=== PATIENT | female | born 1935 | race Two or more races ===

== ENCOUNTER 2016-09-22 10:30 | Outpatient (RCR) | payer MEDICARE, MEDICAID | END 2016-10-14 | disposition home or self-care (01) | LOC: PTY 10:30 | DX: M47.816 Spondylosis without myelopathy or radiculopathy, lumbar region (principal); B02.29 Other postherpetic nervous system involvement | CPT/HCPCS: 97110; 97140; G0283 ==

== ENCOUNTER 2017-02-12 10:00 | Outpatient (RCR) | payer MEDICARE, MEDICAID | END 2017-03-13 | disposition home or self-care (01) | LOC: PTY 10:00 | DX: B02.29 Other postherpetic nervous system involvement (principal); M47.816 Spondylosis without myelopathy or radiculopathy, lumbar region; M81.0 Age-related osteoporosis without current pathological fracture; I10 Essential (primary) hypertension; F32.9 Major depressive disorder, single episode, unspecified; F41.9 Anxiety disorder, unspecified | CPT/HCPCS: 97110; 97140; 97162; G0283; G8978; G8979 ==

== ENCOUNTER 2017-03-19 13:00 | Outpatient (RCR) | payer MEDICARE, MEDICAID | END 2017-04-13 | disposition home or self-care (01) | LOC: PTY 13:00 | DX: B02.29 Other postherpetic nervous system involvement (principal); M47.816 Spondylosis without myelopathy or radiculopathy, lumbar region; M54.5 Low back pain; M81.0 Age-related osteoporosis without current pathological fracture; I10 Essential (primary) hypertension; F32.9 Major depressive disorder, single episode, unspecified; F41.9 Anxiety disorder, unspecified | CPT/HCPCS: 97140; G0283 ==

== ENCOUNTER 2018-04-15 14:28 | Outpatient (CLI) | payer MEDICARE, MEDICAID ==
[~2018-04-15] VITALS: Ht 154.9 cm; Wt 64.9 kg
[2018-04-15 14:57] VITALS: BP 129/64
[2018-04-15] MEDS ORDERED: LIDOCAINE700 M1 TP (16:35)
[2018-04-15] MEDS ORDERED: LORAZEPAM1 MG ORAL (16:35)
[2018-04-15] MEDS ORDERED: BP MED (16:35)
[2018-04-15] MEDS ORDERED: VOLTAREN100 G1 TP (16:35)
[2018-04-15] MEDS ORDERED: COZAAR50 MG ORAL (16:35)
[2018-04-15] MEDS ORDERED: LD2JL30 TOPIC (16:35)
--- NOTE | 2018-04-16 08:43 | GI Initial Consult Note ---
History of Present Illness General Date patient seen: Apr 15, 2018 Time patient seen: 08:39 Referring physician: [facility] Reason for Consultation: ABDOMINAL PAIN Present Illness HPI 83 year old female patient with history of H. Pylori approximately 5 years ago presents today with complaint of abdominal pain, GERD, constipation, and N/V. In addition, she states she has general weakness and questions if she has anemia or not. She had a EGD/colonoscopy [place] [address] Javier Oneil. recently with lung CA. Denies any unintentional weight loss or changes in dietary habits. No signs of abuse or neglect. Patient is not fall risk. Home Meds Reported Medications Lidocaine HCL 2% Jelly* (Lidocaine Jelly 2%*) 5 Ml Jel.pf.romulo, 5 ML TOPIC DAILY , ML 04/15/18 Lidocaine (Lidocaine) 1 Each Adh..patch, 700 MG TP, PATCH 04/15/18 Diclofenac Sodium (VOLTAREN) 100 Gm Gel..gram., 100 GM TP, GM 04/15/18 Lorazepam* (LORAZEPAM*) 1 Mg Tablet, 1 MG ORAL BID, TAB 04/15/18 Losartan Potassium* (COZAAR*) 50 Mg Tablet, 100 MG ORAL TWICE A DAY, TAB 04/15/18 [Bp Med ] No Conflict Check 04/15/18 Med list reviewed/reconciled: Yes Allergies: Coded Allergies: NO KNOWN ALLERGIES (Unverified Allergy, Unknown, 09/11/15) Patient History History Provided By: Patient, Medical Record PMH Narrative ?Anemia HTN Depression Anxiety Shingles Past Surgical History: Appendectomy Family History Narrative Son has lung CA Social History: Denies: smoking, alcohol use, drug use, other Review of Systems All Other Systems: negative except mentioned in HPI Physical Exam Vital Signs Date Time Temp Pulse Resp B/P (MAP) Pulse Ox O2 Delivery O2 Flow Rate FiO2 04/15/18 14:57 98.6 68 16 129/64 94 98.6 Sp02 EP Interpretation: reviewed, normal Labs Laboratory Tests Test 04/15/18 15:45 Helicobacter pylori Breath Test Pending General Appearance: well appearing, no apparent distress, alert Head: normocephalic EENT: PERRL/EOMI, normal ENT inspection Neck: supple Respiratory: normal breath sounds, no respiratory distress Cardiovascular: normal rate Gastrointestinal: normal inspection, non tender, soft, normal bowel sounds, non -distended Rectal: deferred Genitourinary: no CVA tenderness Musculoskeletal: normal inspection, back normal Neurologic: normal inspection, alert, oriented x3, responsive Psychiatric: normal inspection, judgement/insight normal, memory normal Skin: normal inspection, normal color, no rash, warm/dry, palpation normal, well hydrated Lymphatic: normal inspection, no adenopathy GI: Plan Problems: (1) H pylori ulcer (2) GERD (gastroesophageal reflux disease) (3) Abdominal pain (4) HTN (hypertension) (5) Depression (6) Shingles (7) Anemia Plan Omeprazole 40mg daily BT r/o H Pylori Bentyl prn RTC x [address] Denson. Thank you for this patient referral. The patient was seen and examined at bedside and all new and available data was reviewed in the patients chart. I agree with the above findings, impression and plan. (Patient seen earlier today. Signature stamp does not reflect patient encounter time.). - MD Jeannette [facility] CLAIMS CONFIGURATION ANALYST Apr 16, 2018 08:43
== END 2018-04-15 15:10 | disposition home or self-care (01) ==
LOC: PAN 14:28
DX: R10.9 Unspecified abdominal pain (principal); K21.9 Gastro-esophageal reflux disease without esophagitis; B96.81 Helicobacter pylori [H. pylori] as the cause of diseases classified elsewhere; I10 Essential (primary) hypertension; F32.9 Major depressive disorder, single episode, unspecified; B02.9 Zoster without complications; D64.9 Anemia, unspecified; K59.00 Constipation, unspecified; Z90.89 Acquired absence of other organs
CPT/HCPCS: 83013; G0463; 99201

== ENCOUNTER 2020-09-23 10:34 | Inpatient (IN) | payer MEDICARE, MEDICAID ==
[~2020-09-23] VITALS: Ht 160 cm; Wt 54.4 kg
[~2020-09-23 10:34] MED LIST: BP MED; COZAAR50 MG ORAL; Cefepime HCl 2 GM in D5W 55 ML IVPB SCH; DICYCLOMINE HCL10 MG PO; LD2JL30 TOPIC; LIDOCAINE700 M1 TP; LORAZEPAM1 MG ORAL; OMEPRAZOLE40 M1 ORAL; VOLTAREN100 G1 TP
[2020-09-23] MEDS ORDERED: Omnipaque-300 100ml vial INJ PRN (11:30)
--- NOTE | 2020-09-23 11:30 | NUR ---
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
--- NOTE | 2020-09-23 11:38 | Emergency Room Report ---
History of Present Illness General Chief Complaint: Abdominal Pain Source: Patient, Caregiver Present Illness HPI Patient is an 85-year-old female brought in by her caregiver for generalized weakness, epigastric pain, decreased p.o. intake and melenic stools for 1 week. Patient's caregiver denies any fever or chills. She states that the patient has had similar issues in the past. She does not know if she is ever had a blood transfusion. Patient denies any chest pain or shortness of breath. She states that she feels extremely dehydrated and tired. Allergies: Coded Allergies: NO KNOWN ALLERGIES (Unverified Allergy, Unknown, 09/11/15) COVID-19 Screening Contact w/high risk pt: No Experienced COVID-19 symptoms?: No COVID-19 Testing performed CLOUD OPERATIONS ENGINEER: No Patient History Reviewed Nursing Documentation: PMH: Agreed; PSxH: Agreed Nursing Documentation-PMH Past Medical History: No History, Except For Hx Cardiac Problems: Yes Hx Hypertension: Yes Hx Cancer: No Hx Gastrointestinal Problems: Yes Hx Neurological Problems: No Review of Systems All Other Systems: negative except mentioned in HPI Physical Exam Vital Signs Date Time Temp Pulse Resp B/P (MAP) Pulse Ox O2 Delivery O2 Flow Rate FiO2 09/23/20 11:15 97.9 61 18 155/80 (105) 97 Room Air Sp02 EP Interpretation: reviewed, normal General Appearance: no apparent distress, alert, GCS 15, non-toxic Head: normocephalic, atraumatic Eyes: bilateral eye normal inspection, bilateral eye PERRL ENT: hearing grossly normal, normal pharynx, no angioedema, normal voice Neck: full range of motion, supple/symm/no masses Respiratory: chest non-tender, rhonchi, speaking full sentences Cardiovascular #1: regular rate, rhythm, no edema Gastrointestinal: soft, no guarding, no rebound, other - Epigastric tenderness to palpation Rectal: other - Unable to perform Hemoccult stool test due to lack of developer Genitourinary: no CVA tenderness Musculoskeletal: normal range of motion Neurologic: emergency medicine III-XII nml as tested Psychiatric: no suicidal/homicidal ideation Skin: pallor Lymphatic: no adenopathy Procedures Critical Care Time Critical Care Time Total critical care time: Approximately [] minutes. Due to a high probability of clinically significant, life threatening deterioration, the patient required my highest level of preparedness to intervene emergently and I personally spent this critical care time directly and personally managing the patient. This critical care time included obtaining a history; examining the patient; pulse oximetry; ordering and review of studies; arranging urgent treatment with development of a management plan; evaluation of patient's response to treatment; frequent reassessment; and, discussions with other providers.This critical care time was performed to assess and manage the high probability of imminent, life- threatening deterioration that could result in multi-organ failure. It was exclusive of separately billable procedures and treating other patients and teaching time. Please see MDM section and the rest of the note for further information on patient assessment and treatment. Total critical care time: Approximately 35 minutes. Due to a high probability of clinically significant, life threatening deterioration, the patient required my highest level of preparedness to intervene emergently and I personally spent this critical care time directly and personally managing the patient. This critical care time included obtaining a history; examining the patient; pulse oximetry; ordering and review of studies; arranging urgent treatment with development of a management plan; evaluation of patient's response to treatment; frequent reassessment; and, discussions with other providers.This critical care time was performed to assess and manage the high probability of imminent, life- threatening deterioration that could result in multi-organ failure. It was exclusive of separately billable procedures and treating other patients and teaching time. Please see MDM section and the rest of the note for further information on patient assessment and treatment. Medical Decision Making Diagnostic Impression: Primary Impression: GI bleed Additional Impressions: Elevated troponin Hyponatremia COVID-19 Pneumonia ER Course Patient has elevated troponin. EKG demonstrates diffuse T wave inversion. Patient has no active chest pain. Patient is already on Plavix. Patient is mildly hyponatremic with sodium of 130. Patient has been given IV fluids. Patient is COVID-19 positive. Patient has right lower middle lobe infiltrates. She is been started on vancomycin as well as cefepime. Will hold on aggressive IV fluid resuscitation due to risk of ARDS. Patient pending CT abdomen pelvis to rule out any acute intra-abdominal pathology. Patient already started on Protonix for her GI bleed. Dr. Paniagua to follow-up on any abnormal CT findings and relay them to the admitting physician. Laboratory Tests Test 09/23/20 11:45 09/23/20 12:30 White Blood Count 7.3 K/UL (4.8-10.8) Red Blood Count 4.25 M/UL (4.20-5.40) Hemoglobin 12.7 G/DL (12.0-16.0) Hematocrit 39.4 % (37.0-47.0) Mean Corpuscular Volume 93 FL (80-99) Mean Corpuscular Hemoglobin 29.8 PG (27.0-31.0) Mean Corpuscular Hemoglobin Concent 32.2 G/DL (32.0-36.0) Red Cell Distribution Width 12.5 % (11.6-14.8) Platelet Count 303 K/UL (150-450) Mean Platelet Volume 6.4 FL (6.5-10.1) L Neutrophils (%) (Auto) 78.0 % (45.0-75.0) H Lymphocytes (%) (Auto) 9.6 % (20.0-45.0) L Monocytes (%) (Auto) 8.3 % (1.0-10.0) Eosinophils (%) (Auto) 2.8 % (0.0-3.0) Basophils (%) (Auto) 1.3 % (0.0-2.0) Prothrombin Time 11.7 SEC (9.30-11.50) H Prothrombin Time INR 1.1 (0.9-1.1) Activated Partial Thromboplast Time 25 SEC (23-33) Sodium Level 130 MMOL/L (136-145) L Potassium Level 4.4 MMOL/L (3.5-5.1) Chloride Level 96 MMOL/L (98-107) L Carbon Dioxide Level 24 MMOL/L (21-32) Anion Gap 10 mmol/L (5-15) Blood Urea Nitrogen 11 mg/dL (7-18) Creatinine 0.7 MG/DL (0.55-1.30) Estimated Glomerular Filtration Rate > 60 mL/min (>60) Glucose Level 137 MG/DL (74-106) H Calcium Level 9.2 MG/DL (8.5-10.1) Magnesium Level 1.9 MG/DL (1.8-2.4) Total Bilirubin 0.7 MG/DL (0.2-1.0) Aspartate Amino Transferase (AST) 38 U/L (15-37) H Alanine Aminotransferase (ALT) 22 U/L (12-78) Alkaline Phosphatase 95 U/L (46-116) Troponin I 0.327 ng/mL (0.000-0.056) Pro-B-Type Natriuretic Peptide 5097 pg/mL (0-125) H Total Protein 7.6 G/DL (6.4-8.2) Albumin 3.2 G/DL (3.4-5.0) L Globulin 4.4 g/dL Albumin/Globulin Ratio 0.7 (1.0-2.7) L Lipase 107 U/L (73-393) Urine Color Pale yellow Urine Appearance Slightly cloudy Urine pH 7 (4.5-8.0) Urine Specific [place] 1.005 (1.005-1.035) Urine Protein Negative (NEGATIVE) Urine Glucose (UA) Negative (NEGATIVE) Urine Ketones Negative (NEGATIVE) Urine Blood 2+ (NEGATIVE) H Urine Nitrite Negative (NEGATIVE) Urine Bilirubin Negative (NEGATIVE) Urine Urobilinogen Normal MG/DL (0.0-1.0) Urine Leukocyte Esterase 3+ (NEGATIVE) H Urine RBC 2-4 /HPF (0 - 2) H Urine WBC 40-60 /HPF (0 - 2) H Urine Squamous Epithelial Cells Few /LPF (NONE/OCC) Urine Bacteria Few /HPF (NONE) Microbiology Date/Time Source Procedure Growth Status 09/23/20 12:35 Nasopharynx SARS-CoV-2 RdRp Gene Assay - Final Complete EKG Diagnostic Results Troponin ordered: Yes When was troponin ordered?: Sep 23, 2020 EKG Time: 12:16 EP Interpretation: Alexa Dow MD Rate: bradycardiac - 58 bpm Rhythm: other - Sinus bradycardia diffuse T wave inversion prolonged QT ASA given to the pt in ED: No Rhythm Strip Diag. Results Rhythm Strip Time: 13:28 EP Interpretation: yes Rate: 60 bpm Rhythm: NSR, no PVC's, no ectopy Chest X-Ray Diagnostic Results Chest X-Ray Diagnostic Results : Chest X-Ray Ordered: Yes # of Views/Limited/Complete: 1 View Indication: Other - weakness EP Interpretation: Yes Interpretation: no effusion, no pneumothorax, other - Right lower middle lobe infiltrate Impression: Other - Pneumonia Electronically Signed by: Alexa Dow MD Last Vital Signs Date Time Temp Pulse Resp B/P (MAP) Pulse Ox O2 Delivery O2 Flow Rate FiO2 09/23/20 11:15 97.9 61 18 155/80 (105) 97 Room Air Disposition: ADMITTED INPATIENT Condition: Critical Physician Consult: Dr. James MD Referrals: Anibal Denson MD (PCP) Additional Instructions: Please note that this report is being documented using DRAGON technology. This can lead to erroneous entry secondary to incorrect interpretation by the dictating instrument. Alexa Dow M.D. Sep 23, 2020 11:38
[2020-09-23] MEDS ORDERED: Pantoprazole 80 MG in NS 250 ML IV ONE (11:45)
[2020-09-23] MEDS ORDERED: Pantoprazole Inj IVP ONE (11:45)
[2020-09-23 11:58] LABS: BASOPHILS % (AUTO) 1.3 % (0.0-2.0); EOSINOPHILS % (AUTO) 2.8 % (0.0-3.0); HEMATOCRIT 39.4 % (37.0-47.0); HEMOGLOBIN 12.7 G/DL (12.0-16.0); LYMPHOCYTES % (AUTO) 9.6 % (20.0-45.0); MEAN CORPUSCULAR VOLUME 93 FL (80-99); MONOCYTES % (AUTO) 8.3 % (1.0-10.0); PLATELET COUNT 303 K/UL (150-450); RED BLOOD COUNT 4.25 M/UL (4.20-5.40); RED CELL DISTRIBUTION WIDTH 12.5 % (11.6-14.8); WHITE BLOOD COUNT 7.3 K/UL (4.8-10.8)
[2020-09-23 12:05] VITALS: BP 155/80
--- NOTE | 2020-09-23 12:05 | Diagnostic Imaging Report ---
EXAM: XR Chest, 1 View CLINICAL HISTORY: ABD PAIN TECHNIQUE: Frontal view of the chest. COMPARISON: None FINDINGS: Hardware: None. Lungs/pleura: Mild opacities in the right mid and lower lung. No pleural effusion or pneumothorax. Heart/mediastinum: Normal. No cardiomegaly. Soft tissues: Unremarkable. Bones: No acute fracture. Upper abdomen: Normal. IMPRESSION: Mild opacities in the right mid and lower lung may represent atelectasis versus infectious/inflammatory process.
[2020-09-23 12:08] LABS: INR 1.1 (0.9-1.1)
[2020-09-23 12:21] LABS: ANION GAP 10 mmol/L (5-15); BLOOD UREA NITROGEN 11 mg/dL (7-18); CALCIUM 9.2 MG/DL (8.5-10.1); CARBON DIOXIDE 24 MMOL/L (21-32); CHLORIDE 96 MMOL/L (98-107); CREATININE 0.7 MG/DL (0.55-1.30); POTASSIUM 4.4 MMOL/L (3.5-5.1); SODIUM 130 MMOL/L (136-145)
[2020-09-23 12:26] LABS: ALANINE AMINOTRANSFERASE 22 U/L (12-78); ALBUMIN 3.2 G/DL (3.4-5.0); ALBUMIN/GLOBULIN RATIO 0.7 (1.0-2.7); ALKALINE PHOSPHATASE 95 U/L (46-116); ASPARTATE AMINO TRANSFERASE 38 U/L (15-37); BILIRUBIN,TOTAL 0.7 MG/DL (0.2-1.0)
[2020-09-23 12:42] LABS: APPEARANCE,URINE SLIGHTLY CLOUDY; BILIRUBIN, URINE NEGATIVE (NEGATIVE); COLOR,URINE PALE YELLOW; GLUCOSE, URINE (UA) NEGATIVE (NEGATIVE); KETONES,URINE NEGATIVE (NEGATIVE); LEUKOCYTE ESTERASE ,URINE 3+ (NEGATIVE); NITRITE,URINE NEGATIVE (NEGATIVE); PH,URINE 7 (4.5-8.0); PROTEIN,URINE NEGATIVE (NEGATIVE); UROBILINOGEN,URINE NORMAL MG/DL (0.0-1.0)
--- NOTE | 2020-09-23 12:42 | NUR ---
ED Nurse Note:pt. was placed on ekg monitor and covid swab sent to labs
[2020-09-23] MEDS ORDERED: Pantoprazole Inj ONE (12:46)
[2020-09-23] MEDS ORDERED: VALERIAN ROOT500 MG PO (12:49)
[2020-09-23] MEDS ORDERED: NADOLOL20 MG (12:49)
[2020-09-23] MEDS ORDERED: PLAVIX75 MG ORAL (12:49)
[2020-09-23] MEDS ORDERED: MAGNESIUM OXID400 M3 PO (12:49)
[2020-09-23] MEDS ORDERED: SPIRONOLACTONE25 MG ORAL (12:50)
[2020-09-23] MEDS ORDERED: Vancomycin 1 GM in NS 275 ML IVPB ONE (13:00)
[2020-09-23] MEDS ORDERED: Cefepime HCl 2 GM in D5W 55 ML IVPB ONE (13:00)
[2020-09-23 13:55] VITALS: BP 149/78
--- NOTE | 2020-09-23 14:14 | Diagnostic Imaging Report ---
EXAM: CT Abdomen and Pelvis Without Intravenous Contrast CLINICAL HISTORY: ABD PAIN TECHNIQUE: Axial computed tomography images of the abdomen and pelvis without intravenous contrast. CTDI is 4.2 mGy and DLP is 196.90 mGy-cm. One or more of the following dose reduction techniques were used: automated exposure control, adjustment of the mA and/or kV according to patient size, use of iterative reconstruction technique. COMPARISON: CT chest/abdomen/pelvis on 09/24/2009 FINDINGS: Lung bases: Patchy groundglass opacities and densities in the right lower lung and at the edge of the tnonj-mm-lgfo in the left lower lobe, concerning for an infectious/process. Stable likely benign 6 mm nodule in the left lower lobe. ABDOMEN: Liver: Calcified granulomas in the liver. Gallbladder and bile ducts: Unremarkable. No calcified stones. No ductal dilation. Pancreas: Unremarkable. No ductal dilation. Spleen: Unremarkable. No splenomegaly. Adrenals: Nonspecific mild thickening of the left adrenal gland. Kidneys and ureters: Mildly prominent extrarenal pelvises. No obstructing stone. Stomach and bowel: Evaluation of the stomach is limited by underdistention. Diverticulosis without evidence of diverticulitis. PELVIS: Appendix: No findings to suggest acute appendicitis. Bladder: Unremarkable. No stones. Reproductive: Unremarkable as visualized. ABDOMEN and PELVIS: Intraperitoneal space: Unremarkable. No free air. No significant fluid collection. Bones/joints: Mild degenerative changes of the spine. Grade 1 anterolisthesis of L4 on L5. No acute fracture. No dislocation. Soft tissues: New mass in the left breast, measuring approximately 3.0 x 2.1 x 2.5 cm, concerning for neoplasm. Vasculature: Phleboliths in the pelvis. Mild atherosclerotic changes of the vasculature. No aortic aneurysm. Lymph nodes: Nonspecific enlarged retroperitoneal lymph nodes. IMPRESSION: 1. Patchy groundglass opacities and densities in the right lower lung and at the edge of the pzeil-hn-ohhu in the left lower lobe, concerning for an infectious/process. 2. New mass in the left breast, measuring approximately 3.0 x 2.1 x 2.5 cm, concerning for neoplasm. 3. Nonspecific enlarged retroperitoneal lymph nodes.
--- NOTE | 2020-09-23 14:25 | NUR ---
ED Nurse Note:called 2 east with report- given to Nelson
--- NOTE | 2020-09-23 14:45 | NUR ---
NURSE NOTES: Pt brought up from ER via gurney, awake/alert, breathing easily on room air, denies SOB and denies pain at this time. Pt is very nervous and c/o being cold. Moving all extremities well. IV access RW with Vanco running. VS stable with SR on monitor @ 88. Pt having urinary urgency and frequency, ER applies a diaper. Purewick put in place. Abdomen soft/supple, no rigidity/masses/guarding. Bed left in low position, exit alarm set, side rails up x 3 and call light left near pt's hand.
--- NOTE | 2020-09-23 15:28 | Consultation ---
Consult Note Consult Note I am asked to evaluate the patient at the request of Dr. Ramirez for hyponatremia and fluid management Chief Complaint: Abdominal Pain I Patient is an 85-year-old female brought in by her caregiver for generalized weakness, epigastric pain, decreased p.o. intake and melenic stools for 1 week. Patient's caregiver denies any fever or chills. She states that the patient has had similar issues in the past. She does not know if she is ever had a blood transfusion. Patient denies any chest pain or shortness of breath. She states that she feels extremely dehydrated and tired. Allergies: No known allergy COVID-19 Screening Contact w/high risk pt: No Experienced COVID-19 symptoms?: No COVID-19 Testing performed SENIOR INFORMATICA DEVELOPER: No Past Medical History: No History, Except For Hx Cardiac Problems: Yes Hx Hypertension: Yes Hx Gastrointestinal Problems: Yes Vital Signs Date Time Temp Pulse Resp B/P (MAP) Pulse Ox O2 Delivery O2 Flow Rate FiO2 09/23/20 11:15 97.9 61 18 155/80 (105) 97 Room Air PHYSICAL EXAMINATION: VITAL SIGNS: Temperature 97.9, pulse 64, respirations 20, blood pressure 149/78. Saturation 98% on room air. GENERAL: An elderly female, lying in bed, alert, but confused, not in distress. HEENT: Normocephalic and atraumatic. Pupils are reactive to light equally. Pale sclerae. Moist oral mucosa. Poor dental hygiene. NECK: Supple. No lymphadenopathy. Good range of motion. CARDIOVASCULAR: Regular rate and rhythm. No murmur. No gallop. No peripheral edema. LUNGS: She had rales and wheezing at the bases. Nontender chest wall. Normal breathing efforts. ABDOMEN: Soft, nontender, and nondistended. Normal bowel sounds. EXTREMITIES: No edema. No cyanosis. No clubbing. SKIN: No rash. No hives. No ulceration. LABORATORY DATA: Labs showed WBC of 4.6, hemoglobin of 11.2, platelet count of 274,000. BUN of 11, creatinine of 0.7. AST of 38 ALT of 22. Urinalysis showed +3 leukocyte esterase, wbc 40 to 60. Microbiology - screening for COVID-19 with rapid molecular test was negative. IMAGING: CT scan of abdomen and pelvis showed patchy ground-glass opacities and density in the right lower lung field in the left lower lobe concerning for infectious process. New mass in the left breast measuring 3 x 2.1 x 2.5 concerning for neoplasm and nonspecific enlarged retroperitoneal lymph node. X-ray showed mild opacities in the right mid and lower lung, may represent atelectasis versus infectious process. Abdominal ultrasound was negative. . Assessment/Plan Hyponatremia etiology to be identified GI bleed Elevated troponin COVID-19 Pneumonia ? UTI ? Neoplastic process CT IMPRESSION: 1. Patchy groundglass opacities and densities in the right lower lung and at the edge of the aadau-ce-jmmm in the left lower lobe, concerning for an infectious/process. 2. New mass in the left breast, measuring approximately 3.0 x 2.1 x 2.5 cm, concerning for neoplasm. 3. Nonspecific enlarged retroperitoneal lymph nodes. Slow hydration Hyponatremia work-up Monitor electrolytes and hemoglobin and hematocrit Check cancer markers of CEA, CA 199, Ca1 25 Per orders Evan Tierney MD Sep 23, 2020 15:28
[2020-09-23] MEDS ORDERED: D5NS 1,000 ML IV SCH (15:30)
[2020-09-23] MEDS ORDERED: HydrALAZINE 25mg tab ORAL PRN (15:45)
[2020-09-23 16:00] VITALS: BP 146/88
[2020-09-23] MEDS ORDERED: Nitroglycerin Patch 0.1mg/hr TDERMAL SCH (16:00)
--- NOTE | 2020-09-23 17:28 | NUR ---
NURSE NOTES: Left message on voicemail of Dr. Eugenio Ramirez requesting admission orders. Patient is difficult to console, resisitive care, and demanding. I spoke with her daughter, Jocelyne Bazan, to let her know that her mother was demanding to go home. Jocelyne Bazan said, "Absolutely not." The daughter wants her to have a workup. I shared her mother's behavior with her and she seemed to understand very well. Jocelyne Bazan will call her mother and explain that she needs to be in the hospital and to be cooperative.
--- NOTE | 2020-09-23 17:50 | NUR ---
NURSE NOTES: Dr. Eugenio Ramirez called for admission orders. I told him the patient wants to go home, but the daughter wants her at the hospital. I was instructed to reassess the patient and call Dr. Eugenio Ramirez back.
--- NOTE | 2020-09-23 18:32 | NUR ---
NURSE NOTES: Patient has agreed to stay in the hospital. I left message on voicemail of Dr. Eugenio Ramirez indicating patient will stay in the hospital and to call to resume admission orders.
--- NOTE | 2020-09-23 19:25 | NUR ---
NURSE NOTES: Report received from TEOFILO lantigua. AAOx3, able to verbalize needs. IV site on right wrist #20, flushed and asymptomatic. Replaced leads on patient and upon removal of older leads around left breast area, patient withdrew to pain. Skin assessment done; skin intact. Bed in lowest position, brakes engaged and bed alarm on. Call light placed within reach. Will continue to monitor.
[2020-09-23 20:00] VITALS: BP 139/75
[2020-09-23] MEDS ORDERED: Morphine Sulfate 2mg/ml Inj(IV/IM USE ONLY) IVP PRN (20:00)
[2020-09-23] MEDS: D5 1/2NS 1,000 ML IV SCH (21:45)
[2020-09-23] MEDS: Pantoprazole Inj IVP SCH (21:45)
--- NOTE | 2020-09-23 23:10 | NUR ---
NURSE NOTES: report given to TEOFILO Wesley. Patient asleep. No complaints of pain or discomfort at this time.
--- NOTE | 2020-09-23 23:15 | NUR ---
NURSE NOTES: Received pt and report from TEOFILO Bell. Observed pt resting in bed with both eyes closed; arousable to voice. Pt is A/Ox3. costing manager is in placed; pt is NSR (60 bpm). IV site intact, asymptomatic, and patent; running D5 1/2 NS @ 75cc/hr. Pt is on room air; sating at 96%. Bed is in the lowest position and locked. Call light and bedside table is within reach. No signs/symptoms of acute distress noted. Will continue plan of care.
[2020-09-24] MEDS ORDERED: Cefepime HCl 2 GM in D5W 55 ML IVPB SCH (01:00)
--- NOTE | 2020-09-24 02:05 | NUR ---
NURSE NOTES: Observed pt asleep in bed. Pt is currently on room air; sating at 96%. No acute distress noted. Will continue plan of care.
[2020-09-24 02:06] VITALS: BP 143/77
[2020-09-24 04:00] VITALS: BP 141/72
--- NOTE | 2020-09-24 07:47 | NUR ---
NURSE HAND-OFF REPORT: Important Events on Shift: Pt complained of non-radiating pain on Lt side breast area. Mass felt by RN and noted on CT Abd/Pelvis. Offered pain medication but pt refused. Endorsed to dayshift nurse. Patient Status: Stable Diet: NPO Pending Orders: 2D Echo Pending Results/Labs: AM Labs Pending MD notification: N Latest Vital Signs: Temperature 97.9 , Pulse 70 , B/P 141 /72 , Respiratory Rate 19 , O2 SAT 96 , Room Air, O2 Flow Rate . EKG Rhythm: Sinus Rhythm Rhythm change?: N Latest Parker Fall Score: 20 Fall Risk: Low Risk Safety Measures: Call light Within Reach, Bed Alarm Zone 1, Side Rails Side Rails x2, Bed position Low and Locked. Fall Precautions: Yellow Socks Yellow Gown Door Sign Patient Fall Education Report given to TEOFILO Evans.
[2020-09-24 08:00] VITALS: BP 141/72
--- NOTE | 2020-09-24 08:10 | NUR ---
NURSE NOTES: Recvd pt. pt is awake and A/Ox3. director of online education is showing SR. IV site intact, asymptomatic, and patent; running D5 1/2 NS @ 75cc/hr. Pt is on room air; sating at 96%. Bed is in the lowest position and locked. Call light and bedside table is within reach. No signs/symptoms of acute distress noted. Will continue plan of care.
[2020-09-24] MEDS: D5 1/2NS 1,000 ML IV SCH ×2 (08:34→22:47)
[2020-09-24] MEDS: Pantoprazole Inj IVP SCH ×2 (08:34→21:00)
[2020-09-24 08:36] LABS: BASOPHILS % (AUTO) 1.1 % (0.0-2.0); EOSINOPHILS % (AUTO) 10.8 % (0.0-3.0); HEMATOCRIT 33.1 % (37.0-47.0); HEMOGLOBIN 11.2 G/DL (12.0-16.0); LYMPHOCYTES % (AUTO) 15.5 % (20.0-45.0); MEAN CORPUSCULAR VOLUME 90 FL (80-99); MONOCYTES % (AUTO) 10.3 % (1.0-10.0); NEUTROPHILS % (AUTO) 62.3 % (45.0-75.0); PLATELET COUNT 274 K/UL (150-450); RED BLOOD COUNT 3.66 M/UL (4.20-5.40); RED CELL DISTRIBUTION WIDTH 13.3 % (11.6-14.8); WHITE BLOOD COUNT 4.6 K/UL (4.8-10.8)
[2020-09-24 09:19] LABS: ALANINE AMINOTRANSFERASE 18 U/L (12-78); ALBUMIN 2.5 G/DL (3.4-5.0); ALBUMIN/GLOBULIN RATIO 0.6 (1.0-2.7); ALKALINE PHOSPHATASE 75 U/L (46-116); ANION GAP 8 mmol/L (5-15); ASPARTATE AMINO TRANSFERASE 20 U/L (15-37); BILIRUBIN,TOTAL 0.4 MG/DL (0.2-1.0); BLOOD UREA NITROGEN 5 mg/dL (7-18); CALCIUM 8.1 MG/DL (8.5-10.1); CARBON DIOXIDE 25 MMOL/L (21-32); CHLORIDE 101 MMOL/L (98-107); CHOLESTEROL 176 MG/DL (< 200); CREATININE 0.8 MG/DL (0.55-1.30); FERRITIN 179 NG/ML (8-388); GAMMA GLUTAMYL TRANSPEPTIDASE 17 U/L (5-85); HDL CHOLESTEROL 39 MG/DL (40-60); LACTATE DEHYDROGENASE 164 U/L (81-234); PHOSPHORUS 3.3 MG/DL (2.5-4.9); POTASSIUM 3.4 MMOL/L (3.5-5.1); SODIUM 134 MMOL/L (136-145); TRIGLYCERIDES 93 MG/DL (30-150)
[2020-09-24 09:51] LABS: IRON 42 ug/dL (50-175); TOTAL IRON BINDING CAPACITY 179 ug/dL (250-450)
[2020-09-24 09:54] LABS: % IRON SATURATION 23 % (15-50)
--- NOTE | 2020-09-24 10:45 | Cardiology Report ---
ADDENDUM APPROVED REPORT EKG Measurement Heart [id number] <Conclusion> Sinus bradycardia with marked sinus arrhythmia Anterior infarct, age undetermined - possibly acute T wave abnormality, consider inferolateral ischemia Prolonged QT Abnormal ECG
--- NOTE | 2020-09-24 11:55 | Diagnostic Imaging Report ---
Indication: Abdominal pain Technique: Yang-scale and duplex images of the upper abdomen were obtained Comparison: none Findings: Gallbladder is unremarkable, without stones, wall thickening, nor pericholecystic fluid. Sonographic Oneal's sign is negative. Common bile duct measures 2 mm in diameter. No intrahepatic biliary ductal dilatation. Liver demonstrates normal echogenicity, no focal abnormality. Portal vein and hepatic veins are patent. Pancreas is unremarkable. Spleen is unremarkable. Left kidney measures 8.5 cm in length. Right kidney measures 8.8 cm length. Both kidneys demonstrate normal echogenicity. There is no hydronephrosis. No focal abnormality . Non-aneurysmal abdominal aorta . Nonvisualized inferior vena cava Impression: Negative
[2020-09-24 12:00] VITALS: BP 116/65
--- NOTE | 2020-09-24 12:06 | General Progress Note ---
Subjective Allergies: Coded Allergies: NO KNOWN ALLERGIES (Unverified Allergy, Unknown, 09/11/15) Objective Last 24 Hour Vital Signs Date Time Temp Pulse Resp B/P (MAP) Pulse Ox O2 Delivery O2 Flow Rate FiO2 09/24/20 09:00 Room Air 09/24/20 08:00 75 09/24/20 08:00 97.9 70 19 141/72 (95) 96 09/24/20 04:00 70 09/24/20 04:00 97.9 70 19 141/72 (95) 96 09/24/20 02:06 98.1 58 19 143/77 (99) 96 09/24/20 00:00 58 09/23/20 21:00 Room Air 09/23/20 20:00 59 09/23/20 20:00 97.6 60 20 139/75 (96) 97 09/23/20 16:53 146/88 09/23/20 16:00 95.8 59 20 146/88 (107) 97 09/23/20 15:21 Room Air 09/23/20 14:24 97.9 64 20 149/78 98 Room Air 09/23/20 13:55 97.9 64 20 149/78 98 Room Air 09/23/20 12:05 97.9 16 155/80 97 Room Air Intake and Output 09/23/20 09/24/20 19:00 07:00 Intake Total 77 ml 795 ml Balance 77 ml 795 ml Intake Oral 120 ml IV Total 77 ml 675 ml # Voids 1 4 Laboratory Tests 09/23/20 12:30: Urine Color Pale yellow, Urine Appearance Slightly cloudy, Urine pH 7, Urine Specific [place] 1.005, Urine Protein Negative, Urine Glucose (UA) Negative, Urine Ketones Negative, Urine Blood 2+H, Urine Nitrite Negative, Urine Bilirubin Negative, Urine Urobilinogen Normal, Urine Leukocyte Esterase 3+H, Urine RBC 2- 4H, Urine WBC 40-60H, Urine Squamous Epithelial Cells Few, Urine Bacteria Few 09/23/20 21:00: Lactic Acid Level 0.80, Troponin I 0.230H 09/24/20 04:00: Hemoglobin A1c 6.4H 09/24/20 07:40: Troponin I 0.195H, White Blood Count 4.6L, Red Blood Count 3.66L, Hemoglobin 11.2L, Hematocrit 33.1L, Mean Corpuscular Volume 90, Mean Corpuscular Hemoglobin 30.5, Mean Corpuscular Hemoglobin Concent 33.7, Red Cell Distribution Width 13.3, Platelet Count 274, Mean Platelet Volume 6.9, Neutrophils (%) (Auto) 62.3, Lymphocytes (%) (Auto) 15.5L, Monocytes (%) (Auto) 10.3H, Eosinophils (%) (Auto) 10.8H, Basophils (%) (Auto) 1.1, Sodium Level 134L, Potassium Level 3.4L, Chloride Level 101, Carbon Dioxide Level 25, Anion Gap 8, Blood Urea Nitrogen 5L , Creatinine 0.8, Estimat Glomerular Filtration Rate > 60, Glucose Level 119H, Osmolality 276L, Uric Acid 3.9, Calcium Level 8.1L, Phosphorus Level 3.3, Magnesium Level 1.8, Iron Level 42L, Total Iron Binding Capacity 179L, Percent Iron Saturation 23, Unsaturated Iron Binding 137, Ferritin 179, Total Bilirubin 0.4, Gamma Glutamyl Transpeptidase 17, Aspartate Amino Transf (AST/SGOT) 20, Alanine Aminotransferase (ALT/SGPT) 18, Alkaline Phosphatase 75, Lactate Dehydrogenase 164, C-Reactive Protein, Quantitative < 0.4, Pro-B-Type Natriuret ic Peptide 3349H, Total Protein 6.7, Albumin 2.5L, Globulin 4.2, Albumin/Globulin Ratio 0.6L, Triglycerides Level 93, Cholesterol Level 176, LDL Cholesterol 114H, HDL Cholesterol 39L, Cholesterol/HDL Ratio 4.5H, Carcinoembryonic Antigen [Pending], CA 19-9 Antigen [Pending], CA 125 Antigen [Pending], Vitamin B12 Level 279, Folate 18.3, Thyroid Stimulating Hormone (TSH) 1.996 Height (Feet): 5 Height (Inches): 3.00 Weight (Pounds): 120 Assessment/Plan Assessment/Plan: Full dictation completed. A/p : 1- COVID PNA 2- Lt breast new mass '3- NSTEMI 4- HTN plan: Cardio. pulmonary, ID are consulted Eugenio Ramirez MD Sep 24, 2020 12:06
[2020-09-24] MEDS ORDERED: Vancomycin 1gm/D5W 275ml IVPB SCH ×2 (13:00)
[2020-09-24] MEDS: Aspirin Baby 81mg ORAL SCH (13:42)
[2020-09-24] MEDS ORDERED: LD2JL30 TOPIC (13:53)
[2020-09-24] MEDS ORDERED: VERAPAMIL ER P100 MG PO (13:53)
[2020-09-24] MEDS ORDERED: LIDODERM700 M1 TOPIC (13:53)
[2020-09-24] MEDS ORDERED: PANTOPRAZOLE SO40 MG ORAL (13:56)
[2020-09-24] MEDS ORDERED: FAMOTIDINE20 MG ORAL (13:56)
[2020-09-24] MEDS ORDERED: LOSARTAN POTAS100 MG ORAL (13:57)
--- NOTE | 2020-09-24 14:05 | Nephrology Progress Note ---
Assessment/Plan Problem List: (1) Hyponatremia (2) Elevated troponin (3) COVID-19 (4) Pneumonia (5) Breast mass Assessment Hyponatremia etiology to be identified GI bleed Elevated troponin COVID-19 Pneumonia ? UTI ? Neoplastic process CT IMPRESSION: 1. Patchy groundglass opacities and densities in the right lower lung and at the edge of the [id number] in the left lower lobe, concerning for an infectious/process. 2. New mass in the left breast, measuring approximately 3.0 x 2.1 x 2.5 cm, concerning for neoplasm. 3. Nonspecific enlarged retroperitoneal lymph nodes. Plan September 24: Labs reviewed. Serum sodium rising. Low potassium replaced. Cancer markers pending. Continue per consultants. Previously: Slow hydration Hyponatremia work-up Monitor electrolytes and hemoglobin and hematocrit Check cancer markers of CEA, CA 199, Ca1 25 Per orders Subjective ROS Limited/Unobtainable: No Constitutional: Reports: malaise, weakness Objective Objective Last 24 Hour Vital Signs Date Time Temp Pulse Resp B/P (MAP) Pulse Ox O2 Delivery O2 Flow Rate FiO2 09/24/20 12:00 97.9 62 17 116/65 (82) 95 09/24/20 12:00 61 09/24/20 09:00 Room Air 09/24/20 08:00 75 09/24/20 08:00 97.9 70 19 141/72 (95) 96 09/24/20 04:00 70 09/24/20 04:00 97.9 70 19 141/72 (95) 96 09/24/20 02:06 98.1 58 19 143/77 (99) 96 09/24/20 00:00 58 09/23/20 21:00 Room Air 09/23/20 20:00 59 09/23/20 20:00 97.6 60 20 139/75 (96) 97 09/23/20 16:53 146/88 09/23/20 16:00 95.8 59 20 146/88 (107) 97 09/23/20 15:21 Room Air 09/23/20 14:24 97.9 64 20 149/78 98 Room Air Intake and Output 09/23/20 09/24/20 19:00 07:00 Intake Total 77 ml 795 ml Balance 77 ml 795 ml Intake Oral 120 ml IV Total 77 ml 675 ml # Voids 1 4 Current Medications Medications (Trade) Dose Ordered Sig/Rosio Route PRN Reason Start Time Stop Time Status Last Admin Dose Admin Acetaminophen (Tylenol) 650 mg Q8HR PRN ORAL Pain Scale (3-5) 09/23/20 20:00 10/23/20 19:59 Aspirin (ASA) 81 mg DAILY ORAL 09/24/20 12:15 11/08/20 12:14 09/24/20 13:42 Cefepime HCl 2 gm/ Dextrose 55 ml @ 110 mls/hr Q24H IVPB 09/25/20 01:00 10/02/20 00:59 Dextrose/Sodium Chloride 1,000 ml @ 75 mls/hr [id number] IV 09/23/20 20:00 10/23/20 19:59 09/24/20 08:34 Furosemide (Lasix) 40 mg DAILY IV 09/24/20 09:00 10/24/20 08:59 09/24/20 08:34 Hydralazine HCl (Apresoline) 25 mg Q4H PRN ORAL BP over 160 systolic 09/23/20 15:45 12/22/20 15:44 Lorazepam (Ativan 2mg/ml 1ml) 0.5 mg Q8HR PRN IV For Anxiety 09/23/20 20:00 09/30/20 19:59 Morphine Sulfate (Morphine Sulfate) 1 mg Q4H PRN IVP For pain (6-10) 09/23/20 20:00 09/30/20 19:59 Ondansetron HCl (Zofran) 4 mg Q4H PRN IVP Nausea & Vomiting 09/23/20 20:45 10/23/20 20:44 Pantoprazole (Protonix) 40 mg EVERY 12 HOURS IVP 09/23/20 21:00 10/23/20 20:59 09/24/20 08:34 Quetiapine Fumarate (SEROqueL) 25 mg QHS ORAL 09/23/20 21:00 11/07/20 20:59 09/23/20 21:47 Vancomycin HCl (Vanco pharmacy to dose) 1 ea DAILY PRN MISC Per rx protocol 09/23/20 20:45 10/23/20 20:44 Vancomycin HCl 1 gm/Dextrose 275 ml @ 183.708 mls/hr Q24H IVPB 09/24/20 13:00 09/24/20 16:00 09/24/20 13:43 Vancomycin HCl 1 gm/Sodium Chloride 275 ml @ 183.708 mls/hr Q24H IVPB 09/25/20 13:00 09/30/20 12:59 Laboratory Tests 09/23/20 21:00: Lactic Acid Level 0.80, Troponin I 0.230H 09/24/20 04:00: Hemoglobin A1c 6.4H 09/24/20 07:40: Troponin I 0.195H, White Blood Count 4.6L, Red Blood Count 3.66L, Hemoglobin 11.2L, Hematocrit 33.1L, Mean Corpuscular Volume 90, Mean Corpuscular Hemoglobin 30.5, Mean Corpuscular Hemoglobin Concent 33.7, Red Cell Distribution Width 13.3, Platelet Count 274, Mean Platelet Volume 6.9, Neutrophils (%) (Auto) 62.3, Lymphocytes (%) (Auto) 15.5L, Monocytes (%) (Auto) 10.3H, Eosinophils (%) (Auto) 10.8H, Basophils (%) (Auto) 1.1, Sodium Level 134L, Potassium Level 3.4L, Chloride Level 101, Carbon Dioxide Level 25, Anion Gap 8, Blood Urea Nitrogen 5L , Creatinine 0.8, Estimat Glomerular Filtration Rate > 60, Glucose Level 119H, Osmolality 276L, Uric Acid 3.9, Calcium Level 8.1L, Phosphorus Level 3.3, Mag nesium Level 1.8, Iron Level 42L, Total Iron Binding Capacity 179L, Percent Iron Saturation 23, Unsaturated Iron Binding 137, Ferritin 179, Total Bilirubin 0.4, Gamma Glutamyl Transpeptidase 17, Aspartate Amino Transf (AST/SGOT) 20, Alanine Aminotransferase (ALT/SGPT) 18, Alkaline Phosphatase 75, Lactate Dehydrogenase 164, C-Reactive Protein, Quantitative < 0.4, Pro-B-Type Natriuretic Peptide 3349H, Total Protein 6.7, Albumin 2.5L, Globulin 4.2, Albumin/Globulin Ratio 0.6L, Triglycerides Level 93, Cholesterol Level 176, LDL Cholesterol 114H, HDL Cholesterol 39L, Cholesterol/HDL Ratio 4.5H, Carcinoembryonic Antigen [Pending], CA 19-9 Antigen [Pending], CA 125 Antigen [Pending], Vitamin B12 Level 279, Folate 18.3, Thyroid Stimulating Hormone (TSH) 1.996 Height (Feet): 5 Height (Inches): 3.00 Weight (Pounds): 120 General Appearance: no apparent distress, lethargic Cardiovascular: normal rate Respiratory/Chest: decreased breath sounds Abdomen: soft Evan Tierney MD Sep 24, 2020 14:05
--- NOTE | 2020-09-24 14:49 | Infectious Diseases Prog Note ---
Assessment/Plan Problems: (1) COVID-19 virus infection Assessment & Plan: with positive rapid molecular tests and suggestive lung infiltrations, we will send PCR test to confirm and place patient on enhanced and droplet isolation for now (2) Pneumonia due to COVID-19 virus Assessment & Plan: with bilateral infiltrations mainly in the lower lobes highly suspicious for CO VID 19 infection, we will send PCR to confirm place patient on contact and droplet isolation, close monitor of O2 sat on room air. (3) Encephalopathy due to COVID-19 virus Assessment & Plan: continue supportive care and hydration as needed (4) GI bleed Assessment & Plan: with melena GI is following for possible endoscopy in the future, monitor H&H and transfuse as needed (5) Breast mass Assessment & Plan: with reactive retro-peritoneal lymph nodes highly suspicious for breast cancer, recommend ultrasound with biopsy and oncology evaluation (6) Anemia Assessment & Plan: due to the above transfuse if needed with close monitoring of H&H Subjective Allergies: Coded Allergies: NO KNOWN ALLERGIES (Unverified Allergy, Unknown, 09/11/15) Objective Last 24 Hour Vital Signs Date Time Temp Pulse Resp B/P (MAP) Pulse Ox O2 Delivery O2 Flow Rate FiO2 09/24/20 12:00 97.9 62 17 116/65 (82) 95 09/24/20 12:00 61 09/24/20 09:00 Room Air 09/24/20 08:00 75 09/24/20 08:00 97.9 70 19 141/72 (95) 96 09/24/20 04:00 70 09/24/20 04:00 97.9 70 19 141/72 (95) 96 09/24/20 02:06 98.1 58 19 143/77 (99) 96 09/24/20 00:00 58 09/23/20 21:00 Room Air 09/23/20 20:00 59 09/23/20 20:00 97.6 60 20 139/75 (96) 97 09/23/20 16:53 146/88 09/23/20 16:00 95.8 59 20 146/88 (107) 97 09/23/20 15:21 Room Air Height (Feet): 5 Height (Inches): 3.00 Weight (Pounds): 120 Microbiology Date/Time Source Procedure Growth Status 09/23/20 12:35 Nasopharynx SARS-CoV-2 RdRp Gene Assay - Final Complete Laboratory Tests Test 09/23/20 21:00 09/24/20 04:00 09/24/20 07:40 Lactic Acid Level 0.80 mmol/L (0.4-2.0) Troponin I 0.230 ng/mL (0.000-0.056) 0.195 ng/mL (0.000-0.056) Hemoglobin A1c 6.4 % (4.3-6.0) H White Blood Count 4.6 K/UL (4.8-10.8) L Red Blood Count 3.66 M/UL (4.20-5.40) L Hemoglobin 11.2 G/DL (12.0-16.0) L Hematocrit 33.1 % (37.0-47.0) L Mean Corpuscular Volume 90 FL (80-99) Mean Corpuscular Hemoglobin 30.5 PG (27.0-31.0) Mean Corpuscular Hemoglobin Concent 33.7 G/DL (32.0-36.0) Red Cell Distribution Width 13.3 % (11.6-14.8) Platelet Count 274 K/UL (150-450) Mean Platelet Volume 6.9 FL (6.5-10.1) Neutrophils (%) (Auto) 62.3 % (45.0-75.0) Lymphocytes (%) (Auto) 15.5 % (20.0-45.0) L Monocytes (%) (Auto) 10.3 % (1.0-10.0) H Eosinophils (%) (Auto) 10.8 % (0.0-3.0) H Basophils (%) (Auto) 1.1 % (0.0-2.0) Sodium Level 134 MMOL/L (136-145) L Potassium Level 3.4 MMOL/L (3.5-5.1) L Chloride Level 101 MMOL/L (98-107) Carbon Dioxide Level 25 MMOL/L (21-32) Anion Gap 8 mmol/L (5-15) Blood Urea Nitrogen 5 mg/dL (7-18) L Creatinine 0.8 MG/DL (0.55-1.30) Estimat Glomerular Filtration Rate > 60 mL/min (>60) Glucose Level 119 MG/DL (74-106) H Osmolality 276 mOsm/kg (297-317) L Uric Acid 3.9 MG/DL (2.6-7.2) Calcium Level 8.1 MG/DL (8.5-10.1) L Phosphorus Level 3.3 MG/DL (2.5-4.9) Magnesium Level 1.8 MG/DL (1.8-2.4) Iron Level 42 ug/dL (50-175) L Total Iron Binding Capacity 179 ug/dL (250-450) L Percent Iron Saturation 23 % (15-50) Unsaturated Iron Binding 137 ug/dL (112-346) Ferritin 179 NG/ML (8-388) Total Bilirubin 0.4 MG/DL (0.2-1.0) Gamma Glutamyl Transpeptidase 17 U/L (5-85) Aspartate Amino Transf (AST/SGOT) 20 U/L (15-37) Alanine Aminotransferase (ALT/SGPT) 18 U/L (12-78) Alkaline Phosphatase 75 U/L (46-116) Lactate Dehydrogenase 164 U/L (81-234) C-Reactive Protein, Quantitative < 0.4 mg/dL (0.00-0.90) Pro-B-Type Natriuretic Peptide 3349 pg/mL (0-125) H Total Protein 6.7 G/DL (6.4-8.2) Albumin 2.5 G/DL (3.4-5.0) L Globulin 4.2 g/dL Albumin/Globulin Ratio 0.6 (1.0-2.7) L Triglycerides Level 93 MG/DL (30-150) Cholesterol Level 176 MG/DL (< 200) LDL Cholesterol 114 mg/dL (<100) H HDL Cholesterol 39 MG/DL (40-60) L Cholesterol/HDL Ratio 4.5 (3.3-4.4) H Carcinoembryonic Antigen Pending CA 19-9 Antigen Pending CA 125 Antigen Pending Vitamin B12 Level 279 PG/ML (193-986) Folate 18.3 NG/ML (8.6-58.9) Thyroid Stimulating Hormone (TSH) 1.996 uiU/mL (0.358-3.740) Current Medications Medications (Trade) Dose Ordered Sig/Rosio Route PRN Reason Start Time Stop Time Status Last Admin Dose Admin Acetaminophen (Tylenol) 650 mg Q8HR PRN ORAL Pain Scale (3-5) 09/23/20 20:00 10/23/20 19:59 Aspirin (ASA) 81 mg DAILY ORAL 09/24/20 12:15 11/08/20 12:14 09/24/20 13:42 Cefepime HCl 2 gm/ Dextrose 55 ml @ 110 mls/hr Q24H IVPB 09/25/20 01:00 10/02/20 00:59 Dextrose/Sodium Chloride 1,000 ml @ 75 mls/hr [id number] IV 09/23/20 20:00 10/23/20 19:59 09/24/20 08:34 Furosemide (Lasix) 40 mg DAILY IV 09/24/20 09:00 10/24/20 08:59 09/24/20 08:34 Hydralazine HCl (Apresoline) 25 mg Q4H PRN ORAL BP over 160 systolic 09/23/20 15:45 12/22/20 15:44 Lorazepam (Ativan 2mg/ml 1ml) 0.5 mg Q8HR PRN IV For Anxiety 09/23/20 20:00 09/30/20 19:59 Morphine Sulfate (Morphine Sulfate) 1 mg Q4H PRN IVP For pain (6-10) 09/23/20 20:00 09/30/20 19:59 Ondansetron HCl (Zofran) 4 mg Q4H PRN IVP Nausea & Vomiting 09/23/20 20:45 10/23/20 20:44 Pantoprazole (Protonix) 40 mg EVERY 12 HOURS IVP 09/23/20 21:00 10/23/20 20:59 09/24/20 08:34 Quetiapine Fumarate (SEROqueL) 25 mg QHS ORAL 09/23/20 21:00 11/07/20 20:59 09/23/20 21:47 Vancomycin HCl (Vanco pharmacy to dose) 1 ea DAILY PRN MISC Per rx protocol 09/23/20 20:45 10/23/20 20:44 Vancomycin HCl 1 gm/Dextrose 275 ml @ 183.708 mls/hr Q24H IVPB 09/24/20 13:00 09/24/20 16:00 09/24/20 13:43 Vancomycin HCl 1 gm/Sodium Chloride 275 ml @ 183.708 mls/hr Q24H IVPB 09/25/20 13:00 09/30/20 12:59 Germain Wadsworth M.D. Sep 24, 2020 14:49
--- NOTE | 2020-09-24 15:00 | Consultation ---
DATE OF CONSULTATION: 09/24/2020 CHIEF COMPLAINT: No melena. HISTORY OF PRESENT ILLNESS: The patient is an 85-year-old female who came to the hospital complaining of shortness of breath and having black tarry stools. The patient has been diagnosed with COVID-positive pneumonia at this time. Has mild elevated troponin. Most of history is per . PAST MEDICAL HISTORY: 1. Hypertension. 2. Gastritis. 3. History of depression, anxiety. 4. History of CHF. PAST SURGICAL HISTORY: Appendectomy. ALLERGIES: No known allergies. MEDICATIONS: Please see medication reconciliation list. SOCIAL HISTORY: Currently lives at home with a caregiver. No recent history of tobacco, alcohol, drug abuse. FAMILY HISTORY: Noncontributory. REVIEW OF SYSTEMS: Limited. PHYSICAL EXAMINATION: VITAL SIGNS: Temperature is 97.9, pulse is 60, respirations 17, blood pressure is 116/65. HEENT: Normocephalic, atraumatic. Sclerae anicteric. NECK: Supple. No evidence of obvious lymphadenopathy. CARDIOVASCULAR: Regular rate and rhythm. Plus S1, S2. LUNGS: Decreased breath sounds bilaterally. . ABDOMEN: Soft and nontender. No rebound. No guarding. No peritoneal sign. EXTREMITIES: No cyanosis, no clubbing, no edema. ABDOMEN: LABORATORY DATA: Sodium is 134, potassium 3.4, BUN is 5, creatinine is 0.8. White count is 4, hemoglobin 11, hematocrit 33, platelet count is 274. ASSESSMENT AND PLAN: This is an 85-year-old female with melena, COVID-positive pneumonia, elevated troponin, breast mass seen on the CT, negative abdominal ultrasound. PLAN: Given everything is stable, H and H, given active COVID, given elevated troponin, we are going to hold off doing endoscopy at this time. We are going to continue on Protonix q.12h., monitor H and H, transfuse as needed. Follow up on stool OB. Consider GI procedures if absolutely needed. Anibal Denson M.D. DR: JACK JOB#: [id number] CC:
--- NOTE | 2020-09-24 15:00 | History and Physical Report ---
DATE OF ADMISSION: 09/23/2020 SOURCE OF INFORMATION: Patient and EMR. HISTORY OF PRESENT ILLNESS: The patient is an 85-year-old female. She complains of the pain all over the joints. The patient appears to be fatigued and poor historian. However, she appears comfortable. Per the information, the patient's daughter wanted her to stay; however, patient initially wanted to leave the hospital. No severe shortness of breath or chest pain has been reported. PAST MEDICAL AND SURGICAL HISTORY: Including but not limited to anxiety, depression, hypertension, coronary artery disease. FAMILY HISTORY: Reviewed and noncontributory. MEDICATIONS: Current hospital medications including Lasix, cefepime, acetaminophen, Seroquel, vancomycin. ALLERGIES: NKDA. SOCIAL HISTORY: The patient lives with her daughter. The patient denies any chest pain or shortness of breath. The patient denies any nausea, vomiting, diarrhea, or constipation. PHYSICAL EXAMINATION: VITAL SIGNS: Blood pressure 150/80, temperature 98.2, pulse oximetry 98% on room air, pulse rate ranging from 50 to 65. HEENT: Head and neck, atraumatic and normocephalic. CHEST: Clear to auscultation. HEART: S1 and S2. Regular rate and rhythm. ABDOMEN: Soft. No organomegaly. MUSCULOSKELETAL: No gross lateralized motor deficit. NEUROLOGY: The patient is awake, alert, oriented x3. LABORATORY DATA: Dated September 23, 2020 shows platelet count of 300. Sodium 134, potassium 3.4. Serum iron 42. Troponin 0.19. BNP of 3300. LDL 114. IMAGING: Abdominopelvic CT scan shows patchy ground-glass opacities in the right lower lung, new mass in the left breast. Chest x-ray dated September 23, 2020 shows opacity in the right lung. MICROBIOLOGY: Pending results for COVID. ASSESSMENT AND PLAN: 1. Community-acquired pneumonia. 2. COVID-19 pneumonia. 3. Left-sided breast mass highly suspicious for malignancy. 4. Hypertension. 5. Hyponatremia. 6. Coronary artery disease. 7. Non-ST myocardial infarction. 8. GI and DVT prophylaxis. PLAN OF CARE: Cardiology, Pulmonary, Nephrology, Infectious Diseases have been consulted. Continue with empiric antibiotic treatment. The patient remains in the serious medical condition and will be admitted to telemetry unit. We will order the echo. Time of this dictation does not reflect the actual time of encounter. Eugenio Ramirez M.D. DR: Tremaine JOB#: [id number] CC:
--- NOTE | 2020-09-24 15:50 | NUR ---
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
[2020-09-24 15:55] VITALS: BP 118/74
--- NOTE | 2020-09-24 15:59 | Consultation ---
DATE OF CONSULTATION: 09/24/2020 INFECTIOUS DISEASE CONSULTATION CONSULTING PHYSICIAN: Germain Wadsworth MD. REFERRING PHYSICIAN: Eugenio Ramirez MD. REASON FOR CONSULTATION: Suspected COVID-19 viral infection with bilateral pneumonia and UTI. Recommendation for antimicrobial treatment. HISTORY OF PRESENT ILLNESS: The patient is an 85-year-old female with past medical history of coronary artery disease, hypertension, and GERD, was brought in by caregiver to [facility] emergency room for progressive generalized weakness, epigastric pain, and poor oral intake with dark stools for the last week. As per the caregiver, the patient had no fever or chills, and no chest pain or shortness of breath, but she is extremely becoming dehydrated and tired, not eating or drinking well. In the ER, her temperature was 97.9, saturating 97% on room air, with pulse of 61. The patient had extensive workup including labs, which showed normal WBC of 7.3 with hemoglobin of 12.7, and platelet count of 303,000. BUN of 11, creatinine of 0.7 with ALT of 22 and AST of 38. Urinalysis showed evidence of infection with +3 leukocyte esterase, wbc 40 to 60. The patient had screening for COVID-19 with rapid test, the result of which came back positive and her chest x-ray showed bilateral lower lobe infiltration suggestive of COVID-19 infection, so she was started on vancomycin and cefepime by the admitting physician and admitted to an isolation room. Infectious Disease consultation was requested for further evaluation and management. As of note, the patient is a poor historian and cannot provide any history at this time. REVIEW OF SYSTEMS: Unable to obtain, the patient is a poor historian and cannot provide any history. PAST MEDICAL HISTORY: Significant for coronary artery disease, hypertension, and GERD. PAST SURGICAL HISTORY: Not on record. SOCIAL HISTORY: The patient lives at home with caregiver, unemployed, had no recent drugs, tobacco, or alcohol. FAMILY HISTORY: Unable to obtain. ALLERGIES: She has no known drug allergies. MEDICATIONS: Currently, she is on vancomycin, dosed per pharmacy and cefepime 2 g IV every 24 hours. PHYSICAL EXAMINATION: VITAL SIGNS: Temperature 97.9, pulse 64, respirations 20, blood pressure 149/78. Saturation 98% on room air. GENERAL: An elderly female, lying in bed, alert, but confused, not in distress. HEENT: Normocephalic and atraumatic. Pupils are reactive to light equally. Pale sclerae. Moist oral mucosa. Poor dental hygiene. NECK: Supple. No lymphadenopathy. Good range of motion. CARDIOVASCULAR: Regular rate and rhythm. No murmur. No gallop. No peripheral edema. LUNGS: She had rales and wheezing at the bases. Nontender chest wall. Normal breathing efforts. ABDOMEN: Soft, nontender, and nondistended. Normal bowel sounds. EXTREMITIES: No edema. No cyanosis. No clubbing. SKIN: No rash. No hives. No ulceration. LABORATORY DATA: Labs showed WBC of 4.6, hemoglobin of 11.2, platelet count of 274,000. BUN of 11, creatinine of 0.7. AST of 38 ALT of 22. Urinalysis showed +3 leukocyte esterase, wbc 40 to 60. Microbiology - screening for COVID-19 with rapid molecular test was negative. IMAGING: CT scan of abdomen and pelvis showed patchy ground-glass opacities and density in the right lower lung field in the left lower lobe concerning for infectious process. New mass in the left breast measuring 3 x 2.1 x 2.5 concerning for neoplasm and nonspecific enlarged retroperitoneal lymph node. X-ray showed mild opacities in the right mid and lower lung, may represent atelectasis versus infectious process. Abdominal ultrasound was negative. ASSESSMENT AND RECOMMENDATION: 1. COVID-19 virus infection with positive rapid molecular test suggestive lung infiltration in both lower lobes. We will send PCR for COVID testing to confirm. Place the patient on enhanced and droplet isolation for now pending results. 2. Pneumonia due to COVID-19 viral infection with bilateral infiltrations mainly in the lower lobes highly suspicious for COVID-19 infection. We will send PCR to confirm and place the patient on contact and droplet isolation. Close monitor of O2 saturation on room air. She may qualify for remdesivir if O2 saturation drops below 94%. We will monitor closely. Continue antibiotics as per Primary. 3. Encephalopathy due to COVID-19 viral infection. Continue supportive care and hydration as needed with aspiration precaution. 4. Gastrointestinal bleeding with melena. GI is following for possible endoscopy in the future. Monitor H and H, transfuse as needed. 5. Breast mass with reactive retroperitoneal lymph nodes highly suspicious for breast cancer with metastases. Recommend ultrasound of the breast with biopsy and Oncology evaluation. 6. Anemia due to the above. Transfuse as needed with close monitor of H and H. Workup for GI bleeding. Thank you for the consult. ID will continue to follow. Germain Wadsworth M.D. DR: SABINA JOB#: [id number] CC:
--- NOTE | 2020-09-24 16:29 | Consultation ---
DATE OF CONSULTATION: 09/24/2020 PULMONARY CONSULTATION HISTORY OF PRESENT ILLNESS: This is an 85-year-old female who was brought to the hospital with generalized weakness. The patient was seen and evaluated. She was noted to have breast mass. Additionally, she was found to have positive COVID-19 pneumonia. The patient's x-ray confirmed right lower lobe infiltrate and was started on vancomycin and cefepime. At this point, the patient was seen and evaluated and upon review of her oxygenation, I note that she is on room saturating 95%. COVID testing is positive using a rapid gene assay. PAST MEDICAL HISTORY: Notable for hypertension, GERD. There is no history of underlying cancers. REVIEW OF SYSTEMS: Not reliable. PHYSICAL EXAMINATION: GENERAL: Reveals elderly female. VITAL SIGNS: Blood pressure 116/60, heart rate , respiratory rate 18, saturation 95% on room air. HEENT: Unremarkable. CHEST: Clear breath sounds bilaterally with normal heart sounds. BREASTS: Examination not performed. ABDOMEN: Unremarkable. EXTREMITIES: There is no edema. LABORATORY DATA: Lab testing shows white count 4.6, otherwise normal CBC and BMP. Potassium is 3.4, calcium 8.1. Troponin 0.19. Coags are normal. Urinalysis shows multiple pus cells. DIAGNOSTIC STUDIES: X-ray chest was obtained, which shows patchy right lung opacity suspicious for pneumonic process. The patient also underwent abdominal and pelvis CT which showed a mass in the left breast measuring 3 x 2 x 2, suspicious for neoplasm. IMPRESSION: 1. Right lung pneumonia. 2. COVID-19 positivity. 3. Normoxemia. 4. Left breast mass. DISCUSSION: Agree with current medications and care. She is normoxemic, therefore, does not require any supplemental oxygen. She has been started on broad-spectrum antibiotics. I suspect she has underlying urinary tract infection. Evaluation by Oncology is recommended for breast mass. 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 Tomás Fenton M.D. DR: Osbaldo JOB#: [id number] CC:
--- NOTE | 2020-09-24 18:23 | Cardiology Progress Note ---
Assessment/Plan Assessment/Plan The patient is seen and examined, full consult note is dictated. Objective Last 24 Hour Vital Signs Date Time Temp Pulse Resp B/P (MAP) Pulse Ox O2 Delivery O2 Flow Rate FiO2 09/24/20 16:00 59 09/24/20 15:55 97.4 70 18 118/74 (89) 96 09/24/20 12:00 97.9 62 17 116/65 (82) 95 09/24/20 12:00 61 09/24/20 09:00 Room Air 09/24/20 08:00 75 09/24/20 08:00 97.9 70 19 141/72 (95) 96 09/24/20 04:00 70 09/24/20 04:00 97.9 70 19 141/72 (95) 96 09/24/20 02:06 98.1 58 19 143/77 (99) 96 09/24/20 00:00 58 09/23/20 21:00 Room Air 09/23/20 20:00 59 09/23/20 20:00 97.6 60 20 139/75 (96) 97 Intake and Output 09/23/20 09/24/20 19:00 07:00 Intake Total 77 ml 795 ml Balance 77 ml 795 ml Intake Oral 120 ml IV Total 77 ml 675 ml # Voids 1 4 Laboratory Tests Test 09/23/20 21:00 09/24/20 04:00 09/24/20 07:40 09/24/20 16:15 Lactic Acid Level 0.80 mmol/L (0.4-2.0) Troponin I 0.230 ng/mL (0.000-0.056) 0.195 ng/mL (0.000-0.056) 0.121 ng/mL (0.000-0.056) Hemoglobin A1c 6.4 % (4.3-6.0) H White Blood Count 4.6 K/UL (4.8-10.8) L Red Blood Count 3.66 M/UL (4.20-5.40) L Hemoglobin 11.2 G/DL (12.0-16.0) L Hematocrit 33.1 % (37.0-47.0) L Mean Corpuscular Volume 90 FL (80-99) Mean Corpuscular Hemoglobin 30.5 PG (27.0-31.0) Mean Corpuscular Hemoglobin Concent 33.7 G/DL (32.0-36.0) Red Cell Distribution Width 13.3 % (11.6-14.8) Platelet Count 274 K/UL (150-450) Mean Platelet Volume 6.9 FL (6.5-10.1) Neutrophils (%) (Auto) 62.3 % (45.0-75.0) Lymphocytes (%) (Auto) 15.5 % (20.0-45.0) L Monocytes (%) (Auto) 10.3 % (1.0-10.0) H Eosinophils (%) (Auto) 10.8 % (0.0-3.0) H Basophils (%) (Auto) 1.1 % (0.0-2.0) Sodium Level 134 MMOL/L (136-145) L Potassium Level 3.4 MMOL/L (3.5-5.1) L Chloride Level 101 MMOL/L (98-107) Carbon Dioxide Level 25 MMOL/L (21-32) Anion Gap 8 mmol/L (5-15) Blood Urea Nitrogen 5 mg/dL (7-18) L Creatinine 0.8 MG/DL (0.55-1.30) Estimat Glomerular Filtration Rate > 60 mL/min (>60) Glucose Level 119 MG/DL (74-106) H Osmolality 276 mOsm/kg (297-317) L Uric Acid 3.9 MG/DL (2.6-7.2) Calcium Level 8.1 MG/DL (8.5-10.1) L Phosphorus Level 3.3 MG/DL (2.5-4.9) Magnesium Level 1.8 MG/DL (1.8-2.4) Iron Level 42 ug/dL (50-175) L Total Iron Binding Capacity 179 ug/dL (250-450) L Percent Iron Saturation 23 % (15-50) Unsaturated Iron Binding 137 ug/dL (112-346) Ferritin 179 NG/ML (8-388) Total Bilirubin 0.4 MG/DL (0.2-1.0) Gamma Glutamyl Transpeptidase 17 U/L (5-85) Aspartate Amino Transf (AST/SGOT) 20 U/L (15-37) Alanine Aminotransferase (ALT/SGPT) 18 U/L (12-78) Alkaline Phosphatase 75 U/L (46-116) Lactate Dehydrogenase 164 U/L (81-234) C-Reactive Protein, Quantitative < 0.4 mg/dL (0.00-0.90) Pro-B-Type Natriuretic Peptide 3349 pg/mL (0-125) H Total Protein 6.7 G/DL (6.4-8.2) Albumin 2.5 G/DL (3.4-5.0) L Globulin 4.2 g/dL Albumin/Globulin Ratio 0.6 (1.0-2.7) L Triglycerides Level 93 MG/DL (30-150) Cholesterol Level 176 MG/DL (< 200) LDL Cholesterol 114 mg/dL (<100) H HDL Cholesterol 39 MG/DL (40-60) L Cholesterol/HDL Ratio 4.5 (3.3-4.4) H Carcinoembryonic Antigen Pending CA 19-9 Antigen Pending CA 125 Antigen Pending Vitamin B12 Level 279 PG/ML (193-986) Folate 18.3 NG/ML (8.6-58.9) Thyroid Stimulating Hormone (TSH) 1.996 uiU/mL (0.358-3.740) D-Dimer 3.91 mg/L FEU (0.00-0.49) H Microbiology Date/Time Source Procedure Growth Status 09/23/20 12:35 Nasopharynx SARS-CoV-2 RdRp Gene Assay - Final Complete 09/23/20 12:30 Urine,Clean Catch Urine Culture - Preliminary NO GROWTH Resulted Migue Mullen MD Sep 24, 2020 18:23
[2020-09-24 20:00] VITALS: BP 140/82
--- NOTE | 2020-09-24 20:05 | NUR ---
NURSE NOTES: Recvd pt. from TEOFILO Finney. pt is awake and A/Ox3. air sampling and monitoring is showing SR. IV site intact, asymptomatic, and patent; running D5 1/2 NS @ 75cc/hr. Pt is on room air; sating at 96%. Bed is in the lowest position and locked. Call light and bedside table is within reach. No signs/symptoms of acute distress noted. Will continue plan of care.
--- NOTE | 2020-09-24 20:15 | Consultation ---
DATE OF CONSULTATION: 09/24/2020 CARDIOLOGY CONSULTATION CONSULTING PHYSICIAN: Migue Mullen M.D. REFERRING PHYSICIAN: Eugenio Ramirez M.D. REASON FOR CONSULTATION: Elevation of troponin I level. HISTORY OF PRESENT ILLNESS: The patient is a very unfortunate 85-year-old female, who was brought in by her caregiver to this facility for management of epigastric pain, generalized weakness, and failure to thrive. The patient also has had melanotic stool in the past week. According to the chart, the patient has had similar episodes in the past. The patient uses P2Y12 inhibitor, clopidogrel for management of cardiac disease. Her coronary artery disease risk factors includes hypertension. At the time of arrival to this facility, blood pressure was 155/80 mmHg and pulse of 61, her saturation was 97% on room air, and she was afebrile. 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 The patient also had laboratory data in the emergency department, which revealed hyponatremia with serum sodium of 130. BNP peptide was 5097. Her COVID-19 PCR test showed positive. The patient was admitted to telemetry for further evaluation and management of GI bleed as well as COVID-19 infection. Cardiology consultation was made at request of Dr. Ramirez to manage elevated troponin I level. At the time of my evaluation, the patient was chest pain free. PAST MEDICAL HISTORY: Hypertension, history of GERD, history of cardiac disease. REVIEW OF SYSTEMS: HEAD AND NECK: Denies any headache or blurred vision. CONSTITUTIONAL: Generalized weakness, but no fever and chills. Positive for malaise, fatigue, and poor by mouth intake. CARDIOVASCULAR: Denies any chest pain, shortness of breath, PND, orthopnea, leg swelling. PULMONARY: Denies any wheezing, hemoptysis, or shortness of breath. GASTROINTESTINAL: Positive for decreased p.o. intake. Positive for melena, but no hematochezia. Positive for epigastric pain. No diarrhea or constipation. GENITOURINARY: Denies any hematuria, dysuria, or incontinence. EXTREMITIES: Denies any edema, clubbing, or cyanosis. ALLERGIES: No known drug allergies. PAST SURGICAL HISTORY: None. MEDICATIONS: List of medication includes clopidogrel 75 mg p.o. daily, Voltaren 100 gel daily as needed, Pepcid 40 mg p.o. daily, lidocaine jelly topical patch as needed, lorazepam 1 mg p.o. twice daily, losartan 100 mg p.o. twice daily, magnesium oxide 400 mg twice daily, , pantoprazole 40 mg p.o. at bedtime, spironolactone 25 mg p.o. daily, Valerian root 500 mg 2 capsules daily, verapamil 100 mg p.o. daily. SOCIAL HISTORY: Denies any tobacco, alcohol, or illicit drug use. PHYSICAL EXAMINATION: VITAL SIGNS: Blood pressure was 152/80, respirations of 18, pulse of 61, O2 saturation 97% on room air, temperature 97.9 degrees Fahrenheit. GENERAL: The patient is a very unfortunate 85-year-old female, in no apparent respiratory distress. Alert and oriented x4. HEENT: Atraumatic and normocephalic. Anicteric. Pupils are equal, round, and reactive to light and accommodation. Extraocular muscles intact. NECK: JVP less than 5 cm. No carotid bruit. Carotid upstrokes 2+ bilaterally. CVS: Normal S1, S2. Regular rate and rhythm. No murmurs, gallops, or rubs. PMI is at fourth intercostal space in the midclavicular line. LUNGS: Clear to auscultation bilaterally. ABDOMEN: Epigastric tenderness, however, no hepatosplenomegaly. Positive bowel sounds. EXTREMITIES: No evidence of edema, clubbing, or cyanosis. LABORATORY AND DIAGNOSTIC DATA: Imaging studies, chest x-ray shows normal cardiac silhouette with increased interstitial markings suggestive of pneumonitis, possibly viral in origin. Abdomen and pelvis CT, patchy ground-glass opacities and density in the right lower lung few in the left lower lobe concerning an infectious process. New mass in the left breast and enlarged retroperitoneal lymph nodes. Abdominal ultrasound was negative. Laboratory findings, WBC 7.3, hemoglobin 12.7, hematocrit of 39.4, and platelet count is 303. Sodium was 130, potassium 4.4, chloride 96, bicarbonate 24, BUN 11, creatinine 0.7, glucose 137, calcium 9.2. Magnesium is 1.9. Troponin I was 0.327 and proBNP was 5097. ASSESSMENT AND PLAN: The patient is a very unfortunate 85-year-old lady, who was seen in Cardiology consultation. 1. Elevation of troponin I level in the presence of COVID-19 pneumonitis. Possible etiologies could be myopericarditis due to COVID-19 infection as the troponin I level pattern of rise is +2 and there was no complaints of chest pain. A 12-lead electrocardiogram does not show any evidence of ST-segment changes, however, deep T-wave inversions comes with a variety of other possibilities including SUPERVISOR [employer] injury. Coronary artery disease risk factor in this patient includes hypertension only. I would like to proceed with conservative management in view of COVID-19 infection. We would like to proceed with Lovenox prophylaxis dose, aspirin, atorvastatin 80, as well as beta-eamon for double product control. 2. I would like to obtain 2D echocardiography for assessment of LV systolic and diastolic function. 3. COVID-19 pneumonitis. 4. Gastrointestinal bleed. GI followup for possible endoscopy. Serial H and H. 5. Hyponatremia. 6. History of GERD. I would like to place a hold on both Voltaren and clopidogrel in view of GI bleed. Further therapeutic and diagnostic decision will be based on the results of 2D echocardiography. I would like to thank, Dr. Ramirez, for the courtesy of this consultation. Migue Mullen M.D. DR: SEDRICK JOB#: [id number] CC:
[2020-09-24] MEDS: LORazepam Inj 2mg/ml 1ml IV PRN ×2 (22:06→22:47)
[2020-09-25] VITALS: BP 126/65
--- NOTE | 2020-09-25 00:08 | Psychiatry Consultation ---
Psychiatry Consultation Psychiatry Consultation Chief Complaint: Abdominal Pain History of Present Illness: 85-year-old female with a history of anxiety disorder, depression, dementia, coronary artery disease, hypertension, who has been admitted to the hospital due to generalized pain and weakness. The patient is having cognitive impairment, presents with depressed mood, anxiety, hopelessness, and helplessness. She is also having COVID-19 pneumonia. The patient is asleep and arousable and poor historian due to cognitive impairment. She is able to answer simple questions. PAST PSYCHIATRIC HISTORY: Anxiety, on psychotropic medications. PAST MEDICAL HISTORY: Significant for hypertension, GERD, coronary artery disease. ALLERGIES: No known drug allergies. SUBSTANCE ABUSE HISTORY: No known history of illicit drug use or alcohol. The patient lives at home. 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 No behavioral issues. MENTAL STATUS EXAMINATION: The patient is alert and oriented times self, place, and situation. Mood is depressed. Affect is blunted. Thought process is concrete. Thought content, no suicidal or homicidal ideation. Cognition is impaired. Insight and judgment impaired. ASSESSMENT: Liberty I Cognitive impairment. Major depressive disorder Liberty II Deferred. Liberty III As above. Liberty IV Low. Liberty V 20. PLAN: 1. The patient was started on Seroquel 25 at bedtime due to anxiety sundowning at nighttime. 2. Ativan as needed was started by the primary physician. 3. Discussed with the primary physician. Allergies: Coded Allergies: NO KNOWN ALLERGIES (Unverified Allergy, Unknown, 09/11/15) Medication History Scheduled Clopidogrel Bisulfate* (Plavix*), 75 MG ORAL DAILY, (Reported) Famotidine* (Pepcid 20mg tablet*), 40 MG ORAL DAILY, (Reported) Lorazepam* (Lorazepam*), 1 MG ORAL BID, (Reported) Magnesium Oxide (Magnesium Oxide), 400 MG PO BIDAC, (Reported) Metoprolol Tartrate (Metoprolol Tartrate), 25 MG ORAL Q12HR Pantoprazole* (Pantoprazole*), 40 MG ORAL DAILY, (Reported) Valerian Root (Valerian Root), 1,000 MG PO DAILY, (Reported) Scheduled PRN Diclofenac Sodium (Voltaren), TP DAILY PRN for For Pain, (Reported) Hydralazine Hcl* (Hydralazine Hcl*), 25 MG ORAL Q4H PRN Lidocaine HCL 2% Jelly* (Lidocaine Jelly 2%*), Unknown Dose TOPIC DAILY PRN for For Pain, (Reported) Lidocaine Patch* (Lidoderm Patch*), 1 PATCH TOPIC DAILY PRN for For Pain, (Repor yessi) Discontinued Medications Losartan Potassium (Losartan Potassium), 100 MG ORAL BID, (Reported) Discontinued Reason: MD discontinued med Losartan Potassium* (Cozaar*), 100 MG ORAL TWICE A DAY, (Reported) Discontinued Reason: Prescription changed Nadolol (Nadolol*), Unknown Dose, (Reported) Discontinued Reason: MD discontinued med Spironolactone* (Aldactone*), 25 MG ORAL DAILY, (Reported) Discontinued Reason: MD discontinued med Verapamil Hcl (Verapamil Er Pm), 100 MG PO DAILY, (Reported) Discontinued Reason: MD discontinued med Objective Data Height (Feet): 5 Height (Inches): 3.00 Weight (Pounds): 120 Roverto Salomon MD Sep 25, 2020 00:08
[2020-09-25] MEDS: Cefepime HCl 2 GM in D5W 55 ML IVPB SCH (00:37)
[2020-09-25 04:00] VITALS: BP 133/73
--- NOTE | 2020-09-25 06:26 | Consultation ---
History of Present Illness General Chief Complaint: Abdominal Pain Present Illness Allergies: Coded Allergies: NO KNOWN ALLERGIES (Unverified Allergy, Unknown, 09/11/15) Medication History Scheduled Clopidogrel Bisulfate* (Plavix*), 75 MG ORAL DAILY, (Reported) Famotidine* (Pepcid 20mg tablet*), 40 MG ORAL DAILY, (Reported) Lorazepam* (Lorazepam*), 1 MG ORAL BID, (Reported) Losartan Potassium (Losartan Potassium), 100 MG ORAL BID, (Reported) Magnesium Oxide (Magnesium Oxide), 400 MG PO BIDAC, (Reported) Pantoprazole* (Pantoprazole*), 40 MG ORAL DAILY, (Reported) Spironolactone* (Aldactone*), 25 MG ORAL DAILY, (Reported) Valerian Root (Valerian Root), 1,000 MG PO DAILY, (Reported) Verapamil Hcl (Verapamil Er Pm), 100 MG PO DAILY, (Reported) Scheduled PRN Diclofenac Sodium (Voltaren), TP DAILY PRN for For Pain, (Reported) Lidocaine HCL 2% Jelly* (Lidocaine Jelly 2%*), Unknown Dose TOPIC DAILY PRN for For Pain, (Reported) Lidocaine Patch* (Lidoderm Patch*), 1 PATCH TOPIC DAILY PRN for For Pain, (Reported) Miscellaneous Medications Nadolol (Nadolol*), Unknown Dose, (Reported) Discontinued Medications Losartan Potassium* (Cozaar*), 100 MG ORAL TWICE A DAY, (Reported) Discontinued Reason: Prescription changed Patient History Healthcare decision maker Resuscitation status Advanced Directive on File Physical Exam Last 24 Hour Vital Signs Date Time Temp Pulse Resp B/P (MAP) Pulse Ox O2 Delivery O2 Flow Rate FiO2 09/25/20 04:00 97.7 59 20 133/73 (93) 96 09/25/20 03:25 60 09/25/20 00:00 97.5 64 18 126/65 (85) 95 09/25/20 00:00 59 09/24/20 23:17 66 16 113/72 96 09/24/20 22:57 Room Air 09/24/20 22:47 66 16 113/72 96 09/24/20 22:36 66 16 113/72 96 09/24/20 22:06 74 18 131/62 94 09/24/20 21:00 74 131/62 09/24/20 20:00 66 09/24/20 20:00 97.7 68 18 140/82 (101) 97 09/24/20 16:00 59 09/24/20 15:55 97.4 70 18 118/74 (89) 96 09/24/20 12:00 97.9 62 17 116/65 (82) 95 09/24/20 12:00 61 09/24/20 09:00 Room Air 09/24/20 08:00 75 09/24/20 08:00 97.9 70 19 141/72 (95) 96 Intake and Output 09/24/20 09/25/20 19:00 07:00 Intake Total 420 ml Balance 420 ml Intake Oral 420 ml # Voids 3 Laboratory Tests Test 09/24/20 07:40 09/24/20 16:15 White Blood Count 4.6 K/UL (4.8-10.8) L Red Blood Count 3.66 M/UL (4.20-5.40) L Hemoglobin 11.2 G/DL (12.0-16.0) L Hematocrit 33.1 % (37.0-47.0) L Mean Corpuscular Volume 90 FL (80-99) Mean Corpuscular Hemoglobin 30.5 PG (27.0-31.0) Mean Corpuscular Hemoglobin Concent 33.7 G/DL (32.0-36.0) Red Cell Distribution Width 13.3 % (11.6-14.8) Platelet Count 274 K/UL (150-450) Mean Platelet Volume 6.9 FL (6.5-10.1) Neutrophils (%) (Auto) 62.3 % (45.0-75.0) Lymphocytes (%) (Auto) 15.5 % (20.0-45.0) L Monocytes (%) (Auto) 10.3 % (1.0-10.0) H Eosinophils (%) (Auto) 10.8 % (0.0-3.0) H Basophils (%) (Auto) 1.1 % (0.0-2.0) Sodium Level 134 MMOL/L (136-145) L Potassium Level 3.4 MMOL/L (3.5-5.1) L Chloride Level 101 MMOL/L (98-107) Carbon Dioxide Level 25 MMOL/L (21-32) Anion Gap 8 mmol/L (5-15) Blood Urea Nitrogen 5 mg/dL (7-18) L Creatinine 0.8 MG/DL (0.55-1.30) Estimat Glomerular Filtration Rate > 60 mL/min (>60) Glucose Level 119 MG/DL (74-106) H Osmolality 276 mOsm/kg (297-317) L Uric Acid 3.9 MG/DL (2.6-7.2) Calcium Level 8.1 MG/DL (8.5-10.1) L Phosphorus Level 3.3 MG/DL (2.5-4.9) Magnesium Level 1.8 MG/DL (1.8-2.4) Iron Level 42 ug/dL (50-175) L Total Iron Binding Capacity 179 ug/dL (250-450) L Percent Iron Saturation 23 % (15-50) Unsaturated Iron Binding 137 ug/dL (112-346) Ferritin 179 NG/ML (8-388) Total Bilirubin 0.4 MG/DL (0.2-1.0) Gamma Glutamyl Transpeptidase 17 U/L (5-85) Aspartate Amino Transf (AST/SGOT) 20 U/L (15-37) Alanine Aminotransferase (ALT/SGPT) 18 U/L (12-78) Alkaline Phosphatase 75 U/L (46-116) Lactate Dehydrogenase 164 U/L (81-234) Troponin I 0.195 ng/mL (0.000-0.056) 0.121 ng/mL (0.000-0.056) C-Reactive Protein, Quantitative < 0.4 mg/dL (0.00-0.90) Pro-B-Type Natriuretic Peptide 3349 pg/mL (0-125) H Total Protein 6.7 G/DL (6.4-8.2) Albumin 2.5 G/DL (3.4-5.0) L Globulin 4.2 g/dL Albumin/Globulin Ratio 0.6 (1.0-2.7) L Triglycerides Level 93 MG/DL (30-150) Cholesterol Level 176 MG/DL (< 200) LDL Cholesterol 114 mg/dL (<100) H HDL Cholesterol 39 MG/DL (40-60) L Cholesterol/HDL Ratio 4.5 (3.3-4.4) H Carcinoembryonic Antigen Pending CA 19-9 Antigen Pending CA 125 Antigen Pending Vitamin B12 Level 279 PG/ML (193-986) Folate 18.3 NG/ML (8.6-58.9) Thyroid Stimulating Hormone (TSH) 1.996 uiU/mL (0.358-3.740) D-Dimer 3.91 mg/L FEU (0.00-0.49) H Height (Feet): 5 Height (Inches): 3.00 Weight (Pounds): 120 Medications Current Medications Medications (Trade) Dose Ordered Sig/Rosio Route PRN Reason Start Time Stop Time Status Last Admin Dose Admin Acetaminophen (Tylenol) 650 mg Q8HR PRN ORAL Pain Scale (3-5) 09/23/20 20:00 10/23/20 19:59 Aspirin (ASA) 81 mg DAILY ORAL 09/24/20 12:15 11/08/20 12:14 09/24/20 13:42 Cefepime HCl 2 gm/ Dextrose 55 ml @ 110 mls/hr Q24H IVPB 09/25/20 01:00 10/02/20 00:59 09/25/20 00:37 Dextrose/Sodium Chloride 1,000 ml @ 75 mls/hr [id number] IV 09/23/20 20:00 10/23/20 19:59 09/24/20 22:47 Furosemide (Lasix) 40 mg DAILY IV 09/24/20 09:00 10/24/20 08:59 09/24/20 08:34 Hydralazine HCl (Apresoline) 25 mg Q4H PRN ORAL BP over 160 systolic 09/23/20 15:45 12/22/20 15:44 Lorazepam (Ativan 2mg/ml 1ml) 0.5 mg Q8HR PRN IV For Anxiety 09/23/20 20:00 09/30/20 19:59 09/24/20 22:47 Metoprolol Tartrate (Lopressor) 25 mg Q12HR ORAL 09/24/20 21:00 12/23/20 20:59 09/24/20 21:00 Morphine Sulfate (Morphine Sulfate) 1 mg Q4H PRN IVP For pain (6-10) 09/23/20 20:00 09/30/20 19:59 Ondansetron HCl (Zofran) 4 mg Q4H PRN IVP Nausea & Vomiting 09/23/20 20:45 10/23/20 20:44 Pantoprazole (Protonix) 40 mg EVERY 12 HOURS IVP 09/23/20 21:00 10/23/20 20:59 09/24/20 21:00 Quetiapine Fumarate (SEROqueL) 25 mg QHS ORAL 09/23/20 21:00 11/07/20 20:59 09/24/20 21:00 Vancomycin HCl (Vanco pharmacy to dose) 1 ea DAILY PRN MISC Per rx protocol 09/23/20 20:45 10/23/20 20:44 Vancomycin HCl 1 gm/Sodium Chloride 275 ml @ 183.708 mls/hr Q24H IVPB 09/25/20 13:00 09/30/20 12:59 Assessment/Plan Assessment/Plan: Oncology consultation LIBRADO MD: Keyana Ramirez DOS: 09/25/20 RFC: New breast mass ID Patient is an 85-year-old female brought in by her caregiver for generalized weakness, epigastric pain, decreased p.o. intake and melenic stools for 1 week. Patient's caregiver denies any fever or chills. She states that the patient has had similar issues in the past. She does not know if she is ever had a blood transfusion. Patient denies any chest pain or shortness of breath. She states that she feels extremely dehydrated and tired. noted now with covid19, with a breast mass. Allergies: NO KNOWN ALLERGIES (Unverified Allergy, Unknown, 09/11/15) COVID-19 Screening Contact w/high risk pt: No Experienced COVID-19 symptoms?: No COVID-19 Testing performed HEADHUNTER: No Patient History Reviewed Nursing Documentation: PMH: Agreed; PSxH: Agreed Nursing Documentation-PMH Past Medical History: No History, Except For Hx Cardiac Problems: Yes Hx Hypertension: Yes Hx Cancer: No Hx Gastrointestinal Problems: Yes Hx Neurological Problems: No Review of Systems All Other Systems: negative except mentioned in HPI Physical Exam Sp02 EP: reviewed, normal General: no apparent distress, alert, GCS 15, non-toxic Head: normocephalic, atraumatic HEENT: hearing grossly normal, normal pharynx, no angioedema, normal voice Neck: full range of motion, supple/symm/no masses Respiratory: chest non-tender, rhonchi, speaking full sentences Cardiovascular: regular rate, rhythm, no edema Gastrointestinal: soft, Epigastric tenderness to palpation Genitourinary: no CVA tenderness Musculoskeletal: normal range of motion Neurologic: c application developer III-XII nml as tested Psychiatric: no suicidal/homicidal ideation Skin: pallor Lymphatic: no adenopathy Labs: reviewed Imaging: noted Assessment and Recs # Breast mass, left sided [id number] new -- requires further evaluation --> mammogram as needed outpatient as unable to do here --> will need outpatient biopsy likely as well --> may need resection --> given now covid19, conservative management # Anemia due to underlying GI bleed --> anemia panel reviewed --> transfuse as needed prn # Elevated troponin due to covid19 --> per Dr. Mullen, conservative mangement # Hyponatremia --> ivfs # COVID-19 -> steriods, abx, remdesivir # Pneumonia --> abx # Dvt ppx scds Appreciate consultation and Louie Navarro Rn, MD Sep 25, 2020 06:26
--- NOTE | 2020-09-25 06:44 | NUR ---
NURSE HAND-OFF REPORT: Important Events on Shift:Pt continued scheduled medications Patient Status: Stable Diet: Clear liquid diet Pending Orders: Pending Results/Labs:AM Labs Pending MD notification: Latest Vital Signs: Temperature 97.7 , Pulse 59 , B/P 133 /73 , Respiratory Rate 20 , O2 SAT 96 , Room Air, O2 Flow Rate . Vital Sign Comment: VSS EKG Rhythm: Sinus Rhythm Rhythm change?: N MD Notified?: - MD Response: Latest Parker Fall Score: 20 Fall Risk: Low Risk Safety Measures: Call light Within Reach, Bed Alarm Zone 1, Side Rails Side Rails x2, Bed position Low and Locked. Fall Precautions: Yellow Socks Yellow Gown Door Sign Patient Fall Education Report given to TEOFILO Tate.
[2020-09-25 07:12] LABS: BASOPHILS % (AUTO) 1.1 % (0.0-2.0); EOSINOPHILS % (AUTO) 12.6 % (0.0-3.0); HEMATOCRIT 33.9 % (37.0-47.0); LYMPHOCYTES % (AUTO) 17.1 % (20.0-45.0); MEAN CORPUSCULAR VOLUME 94 FL (80-99); MONOCYTES % (AUTO) 8.9 % (1.0-10.0); NEUTROPHILS % (AUTO) 60.3 % (45.0-75.0); PLATELET COUNT 252 K/UL (150-450); RED BLOOD COUNT 3.63 M/UL (4.20-5.40); RED CELL DISTRIBUTION WIDTH 13.1 % (11.6-14.8); WHITE BLOOD COUNT 4.8 K/UL (4.8-10.8)
--- NOTE | 2020-09-25 07:20 | NUR ---
NURSE NOTES: Received report from Maynor/RN. Observed patient asleep, Lying semi-shirley's, resting comfortably. On room air no acute distress/SOB noted. Able to make needs known. IV on right wrist D5 1/2 NS running at 75cc/hr, patent and intact. Bed in low position and locked, Call light within reach, Encouraged to use call light when needed. Will continue plan of care.
[2020-09-25 07:46] LABS: ALANINE AMINOTRANSFERASE 17 U/L (12-78); ALBUMIN 2.4 G/DL (3.4-5.0); ALBUMIN/GLOBULIN RATIO 0.6 (1.0-2.7); ALKALINE PHOSPHATASE 75 U/L (46-116); ANION GAP 6 mmol/L (5-15); ASPARTATE AMINO TRANSFERASE 19 U/L (15-37); BILIRUBIN,TOTAL 0.4 MG/DL (0.2-1.0); BLOOD UREA NITROGEN 6 mg/dL (7-18); CALCIUM 8.1 MG/DL (8.5-10.1); CARBON DIOXIDE 24 MMOL/L (21-32); CHLORIDE 101 MMOL/L (98-107); CREATININE 0.8 MG/DL (0.55-1.30); PHOSPHORUS 3.3 MG/DL (2.5-4.9); POTASSIUM 3.8 MMOL/L (3.5-5.1); SODIUM 131 MMOL/L (136-145)
[2020-09-25 08:00] VITALS: BP 159/75
--- NOTE | 2020-09-25 08:01 | NUR ---
CASE MANAGEMENT:REVIEW 09/25/20 SI: COVID PNA. BREAST MASS. ELEVATED TROPONIN 97.7 59 20 133/73 96% ON RA H/H-11.0/33.9 NA-131 TROPONIN(+) 0.121 IS: IV VANCOMYCIN Q24HRS IV CEFEPIME Q24 LOPRESSOR PO Q12 ASA PO QD IV LASIX QD IV PROTONIX Q12 IVF@75/HR SEROQUEL PO QHS : TELEMETRY STATUS DCP: FROM HOME WITH CAREGIVER PLAN: OUTPATIENT MAMMOGRAM AND BIOPSY
--- NOTE | 2020-09-25 08:04 | General Progress Note ---
Subjective Allergies: Coded Allergies: NO KNOWN ALLERGIES (Unverified Allergy, Unknown, 09/11/15) Objective Last 24 Hour Vital Signs Date Time Temp Pulse Resp B/P (MAP) Pulse Ox O2 Delivery O2 Flow Rate FiO2 09/25/20 04:00 97.7 59 20 133/73 (93) 96 09/25/20 03:25 60 09/25/20 00:00 97.5 64 18 126/65 (85) 95 09/25/20 00:00 59 09/24/20 23:17 66 16 113/72 96 09/24/20 22:57 Room Air 09/24/20 22:47 66 16 113/72 96 09/24/20 22:36 66 16 113/72 96 09/24/20 22:06 74 18 131/62 94 09/24/20 21:00 74 131/62 09/24/20 20:00 66 09/24/20 20:00 97.7 68 18 140/82 (101) 97 09/24/20 16:00 59 09/24/20 15:55 97.4 70 18 118/74 (89) 96 09/24/20 12:00 97.9 62 17 116/65 (82) 95 09/24/20 12:00 61 09/24/20 09:00 Room Air Intake and Output 09/24/20 09/25/20 19:00 07:00 Intake Total 420 ml 240 ml Balance 420 ml 240 ml Intake Oral 420 ml 240 ml # Voids 3 2 Laboratory Tests 09/24/20 16:15: D-Dimer 3.91H, Troponin I 0.121H 09/25/20 06:05: White Blood Count 4.8, Red Blood Count 3.63L, Hemoglobin 11.0L, Hematocrit 33.9L , Mean Corpuscular Volume 94, Mean Corpuscular Hemoglobin 30.3, Mean Corpuscular Hemoglobin Concent 32.4, Red Cell Distribution Width 13.1, Platelet Count 252, Mean Platelet Volume 6.8, Neutrophils (%) (Auto) 60.3, Lymphocytes (%) (Auto) 17.1L, Monocytes (%) (Auto) 8.9, Eosinophils (%) (Auto) 12.6H, Basophils (%) (Auto) 1.1, Sodium Level 131L, Potassium Level 3.8, Chloride Level 101, Carbon Dioxide Level 24, Anion Gap 6, Blood Urea Nitrogen 6L, Creatinine 0.8, Estimat Glomerular Filtration Rate > 60, Glucose Level 119H, Calcium Level 8.1L, Phosphorus Level 3.3, Magnesium Level 1.8, Total Bilirubin 0.4, Aspartate Amino Transf (AST/SGOT) 19, Alanine Aminotransferase (ALT/SGPT) 17, Alkaline Ph osphatase 75, Total Protein 6.5, Albumin 2.4L, Globulin 4.1, Albumin/Globulin Ratio 0.6L Height (Feet): 5 Height (Inches): 3.00 Weight (Pounds): 120 General Appearance: no apparent distress EENT: PERRL/EOMI Neck: supple Cardiovascular: normal rate Respiratory/Chest: decreased breath sounds Abdomen: hypoactive bowel sounds, decreased bowel sounds Extremities: non-tender Assessment/Plan Problem List: (1) COVID-19 ICD Codes: U07.1 - COVID-19 SNOMED: 047181640 (2) Breast mass ICD Codes: N63.0 - Unspecified lump in unspecified breast SNOMED: 94270107 (3) Anemia ICD Codes: D64.9 - Anemia, unspecified SNOMED: 112856598 (4) Abdominal pain ICD Codes: R10.9 - Unspecified abdominal pain SNOMED: 20876815 (5) GI bleed ICD Codes: K92.2 - Gastrointestinal hemorrhage, unspecified SNOMED: 17880348 (6) GERD (gastroesophageal reflux disease) ICD Codes: K21.9 - Gastro-esophageal reflux disease without esophagitis SNOMED: 980703804 (7) Depression ICD Codes: F32.9 - Major depressive disorder, single episode, unspecified SNOMED: 54410195 (8) HTN (hypertension) ICD Codes: I10 - Essential (primary) hypertension SNOMED: 78035769 Assessment/Plan: PLAN: Given everything is stable, H and H, given active COVID, given elevated troponin, we are going to hold off doing endoscopy at this time. We are going to continue on Protonix q.12h., monitor H and H, transfuse as needed. Follow up on stool OB. Consider GI procedures if absolutely needed Anibal Denson MD Sep 25, 2020 08:04
[2020-09-25] MEDS: Aspirin Baby 81mg ORAL SCH (09:27)
[2020-09-25] MEDS: Pantoprazole Inj IVP SCH (09:28)
--- NOTE | 2020-09-25 10:40 | Pulmonology Progress Note ---
Subjective ROS Limited/Unobtainable: Yes Interval Events: none major reported per nursing Constitutional: Reports: no symptoms Allergies: Coded Allergies: NO KNOWN ALLERGIES (Unverified Allergy, Unknown, 09/11/15) Objective Last 24 Hour Vital Signs Date Time Temp Pulse Resp B/P (MAP) Pulse Ox O2 Delivery O2 Flow Rate FiO2 09/25/20 09:28 61 159/75 09/25/20 04:00 97.7 59 20 133/73 (93) 96 09/25/20 03:25 60 09/25/20 00:00 97.5 64 18 126/65 (85) 95 09/25/20 00:00 59 09/24/20 23:17 66 16 113/72 96 09/24/20 22:57 Room Air 09/24/20 22:47 66 16 113/72 96 09/24/20 22:36 66 16 113/72 96 09/24/20 22:06 74 18 131/62 94 09/24/20 21:00 74 131/62 09/24/20 20:00 66 09/24/20 20:00 97.7 68 18 140/82 (101) 97 09/24/20 16:00 59 09/24/20 15:55 97.4 70 18 118/74 (89) 96 09/24/20 12:00 97.9 62 17 116/65 (82) 95 09/24/20 12:00 61 Intake and Output 09/24/20 09/25/20 19:00 07:00 Intake Total 420 ml 240 ml Balance 420 ml 240 ml Intake Oral 420 ml 240 ml # Voids 3 2 Objective 09/25 saturating at 95% on RA General Appearance: WD/WN HEENT: normocephalic Respiratory: lungs clear Cardiovascular: normal rate, regular rhythm Abdomen: soft, non tender Microbiology Date/Time Source Procedure Growth Status 09/23/20 12:35 Nasopharynx SARS-CoV-2 RdRp Gene Assay - Final Complete 09/23/20 12:30 Urine,Clean Catch Urine Culture - Preliminary NO GROWTH Resulted Laboratory Tests 09/24/20 16:15: D-Dimer 3.91H, Troponin I 0.121H 09/25/20 06:05: White Blood Count 4.8, Red Blood Count 3.63L, Hemoglobin 11.0L, Hematocrit 33.9L , Mean Corpuscular Volume 94, Mean Corpuscular Hemoglobin 30.3, Mean Corpuscular Hemoglobin Concent 32.4, Red Cell Distribution Width 13.1, Platelet Count 252, Mean Platelet Volume 6.8, Neutrophils (%) (Auto) 60.3, Lymphocytes (%) (Auto) 17.1L, Monocytes (%) (Auto) 8.9, Eosinophils (%) (Auto) 12.6H, Basophils (%) (Auto) 1.1, Sodium Level 131L, Potassium Level 3.8, Chloride Level 101, Carbon Dioxide Level 24, Anion Gap 6, Blood Urea Nitrogen 6L, Creatinine 0.8, Estimat Glomerular Filtration Rate > 60, Glucose Level 119H, Calcium Level 8.1L, Phosphorus Level 3.3, Magnesium Level 1.8, Total Bilirubin 0.4, Aspartate Amino Transf (AST/SGOT) 19, Alanine Aminotransferase (ALT/SGPT) 17, Alkaline Phosphatase 75, Total Protein 6.5, Albumin 2.4L, Globulin 4.1, Albumin/Globulin Ratio 0.6L Current Medications Medications (Trade) Dose Ordered Sig/Rosio Route PRN Reason Start Time Stop Time Status Last Admin Dose Admin Acetaminophen (Tylenol) 650 mg Q8HR PRN ORAL Pain Scale (3-5) 09/23/20 20:00 10/23/20 19:59 Aspirin (ASA) 81 mg DAILY ORAL 09/24/20 12:15 11/08/20 12:14 09/25/20 09:27 Cefepime HCl 2 gm/ Dextrose 55 ml @ 110 mls/hr Q24H IVPB 09/25/20 01:00 10/02/20 00:59 09/25/20 00:37 Furosemide (Lasix) 40 mg DAILY IV 09/24/20 09:00 10/24/20 08:59 09/25/20 09:28 Hydralazine HCl (Apresoline) 25 mg Q4H PRN ORAL BP over 160 systolic 09/23/20 15:45 12/22/20 15:44 Lorazepam (Ativan 2mg/ml 1ml) 0.5 mg Q8HR PRN IV For Anxiety 09/23/20 20:00 09/30/20 19:59 09/24/20 22:47 Metoprolol Tartrate (Lopressor) 25 mg Q12HR ORAL 09/24/20 21:00 12/23/20 20:59 09/25/20 09:28 Morphine Sulfate (Morphine Sulfate) 1 mg Q4H PRN IVP For pain (6-10) 09/23/20 20:00 09/30/20 19:59 Ondansetron HCl (Zofran) 4 mg Q4H PRN IVP Nausea & Vomiting 09/23/20 20:45 10/23/20 20:44 Pantoprazole (Protonix) 40 mg EVERY 12 HOURS IVP 09/23/20 21:00 10/23/20 20:59 09/25/20 09:28 Quetiapine Fumarate (SEROqueL) 25 mg QHS ORAL 09/23/20 21:00 11/07/20 20:59 09/24/20 21:00 Vancomycin HCl (Vanco pharmacy to dose) 1 ea DAILY PRN MISC Per rx protocol 09/23/20 20:45 10/23/20 20:44 Vancomycin HCl 1 gm/Sodium Chloride 275 ml @ 183.708 mls/hr Q24H IVPB 09/25/20 13:00 09/30/20 12:59 Assessment/Plan Assessment/Plan 1. Right lung pneumonia. - ormoxemic, therefore, does not require any supplemental oxygen - on broad-spectrum Abx 2. COVID-19 positivity. 3. Normoxemia. 4. Left breast mass. - Oncology recommendations noted - given now covid19, conservative management 5. Anemia - heme onc following 6. Elevated troponin due to covid19 - per Dr. Mullen, conservative mangement We will follow as tooth cutter contact wheel. The care for this patient was discussed with my supervising physicians Time spent for this case was approximately 31 minutes Yuri Moran Sep 25, 2020 10:40
--- NOTE | 2020-09-25 10:56 | General Progress Note ---
Subjective Allergies: Coded Allergies: NO KNOWN ALLERGIES (Unverified Allergy, Unknown, 09/11/15) Objective Last 24 Hour Vital Signs Date Time Temp Pulse Resp B/P (MAP) Pulse Ox O2 Delivery O2 Flow Rate FiO2 09/25/20 09:28 61 159/75 09/25/20 04:00 97.7 59 20 133/73 (93) 96 09/25/20 03:25 60 09/25/20 00:00 97.5 64 18 126/65 (85) 95 09/25/20 00:00 59 09/24/20 23:17 66 16 113/72 96 09/24/20 22:57 Room Air 09/24/20 22:47 66 16 113/72 96 09/24/20 22:36 66 16 113/72 96 09/24/20 22:06 74 18 131/62 94 09/24/20 21:00 74 131/62 09/24/20 20:00 66 09/24/20 20:00 97.7 68 18 140/82 (101) 97 09/24/20 16:00 59 09/24/20 15:55 97.4 70 18 118/74 (89) 96 09/24/20 12:00 97.9 62 17 116/65 (82) 95 09/24/20 12:00 61 Intake and Output 09/24/20 09/25/20 19:00 07:00 Intake Total 420 ml 240 ml Balance 420 ml 240 ml Intake Oral 420 ml 240 ml # Voids 3 2 Laboratory Tests 09/24/20 16:15: D-Dimer 3.91H, Troponin I 0.121H 09/25/20 06:05: White Blood Count 4.8, Red Blood Count 3.63L, Hemoglobin 11.0L, Hematocrit 33.9L , Mean Corpuscular Volume 94, Mean Corpuscular Hemoglobin 30.3, Mean Corpuscular Hemoglobin Concent 32.4, Red Cell Distribution Width 13.1, Platelet Count 252, Mean Platelet Volume 6.8, Neutrophils (%) (Auto) 60.3, Lymphocytes (%) (Auto) 17.1L, Monocytes (%) (Auto) 8.9, Eosinophils (%) (Auto) 12.6H, Basophils (%) (Auto) 1.1, Sodium Level 131L, Potassium Level 3.8, Chloride Level 101, Carbon Dioxide Level 24, Anion Gap 6, Blood Urea Nitrogen 6L, Creatinine 0.8, Estimat Glomerular Filtration Rate > 60, Glucose Level 119H, Calcium Level 8.1L, Phosphorus Level 3.3, Magnesium Level 1.8, Total Bilirubin 0.4, Aspartate Amino Transf (AST/SGOT) 19, Alanine Aminotransferase (ALT/SGPT) 17, Alkaline Ph osphatase 75, Total Protein 6.5, Albumin 2.4L, Globulin 4.1, Albumin/Globulin Ratio 0.6L Height (Feet): 5 Height (Inches): 3.00 Weight (Pounds): 120 Assessment/Plan Assessment/Plan: S: I am ok O: seems comfortable, denies chest pain or sob PHYSICAL EXAMINATION: HEENT: Head and neck, atraumatic and normocephalic. CHEST: Clear to auscultation. HEART: S1 and S2. Regular rate and rhythm. ABDOMEN: Soft. No organomegaly. MUSCULOSKELETAL: No gross lateralized motor deficit. NEUROLOGY: The patient is awake, alert, oriented x3. Meds, Labs: reviewed and reconciled IMAGING: Abdominopelvic CT scan shows patchy ground-glass opacities in the right lower lung, new mass in the left breast. Chest x-ray dated September 23, 2020 shows opacity in the right lung. MICROBIOLOGY: Pending results for COVID. ASSESSMENT AND PLAN: 1. COVID-19 pneumonia. 3. Left-sided breast mass highly suspicious for malignancy. 4. Hypertension. 5. Hyponatremia. 6. Coronary artery disease. 7. Non-ST myocardial infarction. 8. GI and DVT prophylaxis. PLAN OF CARE: C/w current management ASA, in light of NSTEMI decreasing Trop level. Conservative mgt is justified Eugenio Ramirez MD Sep 25, 2020 10:56
[2020-09-25] MEDS ORDERED: DiphenhydrAMINE 50mg/ml Inj IVP PRN (11:45)
[2020-09-25 12:00] VITALS: BP 159/86
[2020-09-25] MEDS ORDERED: Vancomycin 1 GM in NS 275 ML IVPB SCH (13:00)
--- NOTE | 2020-09-25 13:39 | Nephrology Progress Note ---
Assessment/Plan Problem List: (1) Hyponatremia (2) Elevated troponin (3) COVID-19 (4) Pneumonia (5) Breast mass Assessment Hyponatremia etiology to be identified GI bleed Elevated troponin COVID-19 Pneumonia ? UTI ? Neoplastic process CT IMPRESSION: 1. Patchy groundglass opacities and densities in the right lower lung and at the edge of the [id number] in the left lower lobe, concerning for an infectious/process. 2. New mass in the left breast, measuring approximately 3.0 x 2.1 x 2.5 cm, concerning for neoplasm. 3. Nonspecific enlarged retroperitoneal lymph nodes. Plan September 25: Labs reviewed. 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 Cancer markers CA-125 elevated. Continue per oncology. Will start 3% saline infusion with IV Lasix to keep intake less than output. Monitor electrolytes. September 24: Labs reviewed. Serum sodium rising. Low potassium replaced. Cancer markers pending. Continue per consultants. Previously: Slow hydration Hyponatremia work-up Monitor electrolytes and hemoglobin and hematocrit Check cancer markers of CEA, CA 199, Ca1 25 Per orders Subjective ROS Limited/Unobtainable: No Constitutional: Reports: malaise, weakness Objective Objective Last 24 Hour Vital Signs Date Time Temp Pulse Resp B/P (MAP) Pulse Ox O2 Delivery O2 Flow Rate FiO2 09/25/20 09:28 61 159/75 09/25/20 09:00 Room Air 09/25/20 08:00 97.7 61 20 159/75 (103) 95 09/25/20 08:00 59 09/25/20 04:00 97.7 59 20 133/73 (93) 96 09/25/20 03:25 60 09/25/20 00:00 97.5 64 18 126/65 (85) 95 09/25/20 00:00 59 09/24/20 23:17 66 16 113/72 96 09/24/20 22:57 Room Air 09/24/20 22:47 66 16 113/72 96 09/24/20 22:36 66 16 113/72 96 09/24/20 22:06 74 18 131/62 94 09/24/20 21:00 74 131/62 09/24/20 20:00 66 09/24/20 20:00 97.7 68 18 140/82 (101) 97 09/24/20 16:00 59 09/24/20 15:55 97.4 70 18 118/74 (89) 96 Intake and Output 09/24/20 09/25/20 19:00 07:00 Intake Total 420 ml 240 ml Balance 420 ml 240 ml Intake Oral 420 ml 240 ml # Voids 3 2 Current Medications Medications (Trade) Dose Ordered Sig/Rosio Route PRN Reason Start Time Stop Time Status Last Admin Dose Admin Acetaminophen (Tylenol) 650 mg Q8HR PRN ORAL Pain Scale (3-5) 09/23/20 20:00 10/23/20 19:59 Aspirin (ASA) 81 mg DAILY ORAL 09/24/20 12:15 11/08/20 12:14 09/25/20 09:27 Cefepime HCl 2 gm/ Dextrose 55 ml @ 110 mls/hr Q24H IVPB 09/25/20 01:00 10/02/20 00:59 09/25/20 00:37 Diphenhydramine HCl (Benadryl) 25 mg Q6H PRN IVP Itching 09/25/20 11:45 10/25/20 11:44 09/25/20 12:29 Furosemide (Lasix) 20 mg EVERY 8 HOURS IV 09/25/20 14:00 10/25/20 13:59 UNV Hydralazine HCl (Apresoline) 25 mg Q4H PRN ORAL BP over 160 systolic 09/23/20 15:45 12/22/20 15:44 Lorazepam (Ativan 2mg/ml 1ml) 0.5 mg Q8HR PRN IV For Anxiety 09/23/20 20:00 09/30/20 19:59 09/24/20 22:47 Metoprolol Tartrate (Lopressor) 25 mg Q12HR ORAL 09/24/20 21:00 12/23/20 20:59 09/25/20 09:28 Morphine Sulfate (Morphine Sulfate) 1 mg Q4H PRN IVP For pain (6-10) 09/23/20 20:00 09/30/20 19:59 Ondansetron HCl (Zofran) 4 mg Q4H PRN IVP Nausea & Vomiting 09/23/20 20:45 10/23/20 20:44 Pantoprazole (Protonix) 40 mg EVERY 12 HOURS IVP 09/23/20 21:00 10/23/20 20:59 09/25/20 09:28 Quetiapine Fumarate (SEROqueL) 25 mg QHS ORAL 09/23/20 21:00 11/07/20 20:59 09/24/20 21:00 Sodium Chloride 500 ml @ 30 mls/hr ONCE ONCE IV 09/25/20 13:45 09/26/20 06:24 UNV Vancomycin HCl (Vanco pharmacy to dose) 1 ea DAILY PRN MISC Per rx protocol 09/23/20 20:45 10/23/20 20:44 Vancomycin HCl 750 mg/Dextrose 275 ml @ 183.333 mls/hr Q12HR@0600,1800 IVPB 09/26/20 06:00 10/01/20 05:59 Laboratory Tests 09/24/20 16:15: D-Dimer 3.91H, Troponin I 0.121H 09/25/20 06:05: White Blood Count 4.8, Red Blood Count 3.63L, Hemoglobin 11.0L, Hematocrit 33.9L , Mean Corpuscular Volume 94, Mean Corpuscular Hemoglobin 30.3, Mean Corpuscular Hemoglobin Concent 32.4, Red Cell Distribution Width 13.1, Platelet Count 252, Mean Platelet Volume 6.8, Neutrophils (%) (Auto) 60.3, Lymphocytes (%) (Auto) 1 7.1L, Monocytes (%) (Auto) 8.9, Eosinophils (%) (Auto) 12.6H, Basophils (%) (Auto) 1.1, Sodium Level 131L, Potassium Level 3.8, Chloride Level 101, Carbon Dioxide Level 24, Anion Gap 6, Blood Urea Nitrogen 6L, Creatinine 0.8, Estimat Glomerular Filtration Rate > 60, Glucose Level 119H, Calcium Level 8.1L, Phosphorus Level 3.3, Magnesium Level 1.8, Total Bilirubin 0.4, Aspartate Amino Transf (AST/SGOT) 19, Alanine Aminotransferase (ALT/SGPT) 17, Alkaline Phosphatase 75, Total Protein 6.5, Albumin 2.4L, Globulin 4.1, Albumin/Globulin Ratio 0.6L 09/25/20 12:30: Vancomycin Level Trough 7.5 Height (Feet): 5 Height (Inches): 3.00 Weight (Pounds): 120 General Appearance: no apparent distress, lethargic Cardiovascular: normal rate Respiratory/Chest: decreased breath sounds Abdomen: distended Evan Tierney MD Sep 25, 2020 13:39
--- NOTE | 2020-09-25 14:43 | Cardiology Report ---
APPROVED REPORT EXAM: Two-dimensional and M-mode echocardiogram with Doppler and color Doppler. INDICATION Chest Pain M-Mode DIMENSIONS IVSd0.7 (0.7-1.1cm)Left Atrium (MM)3.0 (1.6-4.0cm) LVDd4.0 (3.5-5.6cm)Aortic Root2.8 (2.0-3.7cm) PWd0.7 (0.7-1.1cm)Aortic Cusp Exc.1.8 (1.5-2.0cm) IVSs0.8 cmEPSS0.2 (>1.0cm) LVDs2.8 (2.5-4.0cm) PWs0.8 cm <Conclusion> Technically difficult study due to poor pt's resistance. Normal left ventricular chamber size, systolic function and wall motion. Left ventricular ejection fraction estimated to be 55%. Mild left ventricular hypertrophy. No evidence of pericardial effusion. All other cardiac chamber sizes are within normal limits. Focal aortic valve sclerosis with adequate cusp excursion. Thickened mitral valve leaflets with normal excursion. Mitral annulus and aortic root calcification. Normal pulmonic valve structure. Normal tricuspid valve structure. IVC at normal size with slightly physiologic collapse suggestive of increased RA pressure. A color flow and spectral Doppler study was performed and revealed: Trace aortic regurgitation. Mild mitral regurgitation. Mitral diastolic velocities suggest reduced left ventricular relaxation c/w mild LV diastolic dysfunction (Grade I ). Mild tricuspid regurgitation. Tricuspid systolic velocities suggests peak right ventricular systolic pressure of 48 mmHg, consistent with moderate pulmonary hypertension. Mild to moderate pulmonic regurgitation present.
[2020-09-25] MEDS ORDERED: NaCl 3% 500ml 500 ML IV ONE (15:00)
[2020-09-25 16:00] VITALS: BP 136/67
--- NOTE | 2020-09-25 16:01 | Infectious Diseases Prog Note ---
Assessment/Plan Problems: (1) COVID-19 virus infection Assessment & Plan: with positive rapid molecular tests and suggestive lung infiltrations, monitor PCR test to confirm and keep patient on enhanced and droplet isolation for now (2) Pneumonia due to COVID-19 virus Assessment & Plan: with bilateral infiltrations mainly in the lower lobes highly suspicious for CO VID 19 infection, await PCR to confirm place patient on contact and droplet isolation, close monitor of O2 sat on room air. (3) Encephalopathy due to COVID-19 virus Assessment & Plan: continue supportive care and hydration as needed (4) GI bleed Assessment & Plan: with [facility] is following for possible endoscopy in the future, monitor H&H and transfuse as needed (5) Breast mass Assessment & Plan: with reactive retro-peritoneal lymph nodes highly suspicious for breast cancer, recommend ultrasound with biopsy and oncology evaluation (6) Anemia Assessment & Plan: due to the above transfuse if needed with close monitoring of H&H Subjective Constitutional: Reports: no symptoms HEENT: Reports: no symptoms Respiratory: Reports: no symptoms Breasts: Reports: no symptoms Cardiovascular: Reports: no symptoms Gastrointestinal/Abdominal: Reports: no symptoms Genitourinary: Reports: no symptoms Neurologic: Reports: confusion Psychiatric: Reports: anxiety Skin: Reports: no symptoms Endocrine: Reports: no symptoms Hematologic: Reports: no symptoms Musculoskeletal: Reports: no symptoms Allergies: Coded Allergies: NO KNOWN ALLERGIES (Unverified Allergy, Unknown, 09/11/15) Objective Last 24 Hour Vital Signs Date Time Temp Pulse Resp B/P (MAP) Pulse Ox O2 Delivery O2 Flow Rate FiO2 09/25/20 09:28 61 159/75 09/25/20 09:00 Room Air 09/25/20 08:00 97.7 61 20 159/75 (103) 95 09/25/20 08:00 59 09/25/20 04:00 97.7 59 20 133/73 (93) 96 09/25/20 03:25 60 09/25/20 00:00 97.5 64 18 126/65 (85) 95 09/25/20 00:00 59 09/24/20 23:17 66 16 113/72 96 09/24/20 22:57 Room Air 09/24/20 22:47 66 16 113/72 96 09/24/20 22:36 66 16 113/72 96 09/24/20 22:06 74 18 131/62 94 09/24/20 21:00 74 131/62 09/24/20 20:00 66 09/24/20 20:00 97.7 68 18 140/82 (101) 97 09/24/20 16:00 59 Height (Feet): 5 Height (Inches): 3.00 Weight (Pounds): 120 General Appearance: WD/WN, no acute distress HEENT: normocephalic, atraumatic, anicteric, mucous membranes moist, PERRL Respiratory/Chest: chest wall non-tender, no respiratory distress, no accessory muscle use, decreased breath sounds, crackles/rales Cardiovascular: normal peripheral pulses, normal rate, regular rhythm, no gallop/murmur, no JVD Abdomen: normal bowel sounds, soft, non tender, no organomegaly, non distended, no mass, no scars Genitourinary: normal external genitalia Extremities: no cyanosis, no clubbing Skin: no rash, no lesions 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, alert Lymphatic: no neck adenopathy, no groin adenopathy Musculoskeletal: normal muscle bulk, no effusion Microbiology Date/Time Source Procedure Growth Status 09/23/20 12:35 Nasopharynx SARS-CoV-2 RdRp Gene Assay - Final Complete 09/23/20 12:30 Urine,Clean Catch Urine Culture - Preliminary NO GROWTH Resulted Laboratory Tests Test 09/24/20 16:15 09/25/20 06:05 09/25/20 12:30 D-Dimer 3.91 mg/L FEU (0.00-0.49) H Troponin I 0.121 ng/mL (0.000-0.056) White Blood Count 4.8 K/UL (4.8-10.8) Red Blood Count 3.63 M/UL (4.20-5.40) L Hemoglobin 11.0 G/DL (12.0-16.0) L Hematocrit 33.9 % (37.0-47.0) L Mean Corpuscular Volume 94 FL (80-99) Mean Corpuscular Hemoglobin 30.3 PG (27.0-31.0) Mean Corpuscular Hemoglobin Concent 32.4 G/DL (32.0-36.0) Red Cell Distribution Width 13.1 % (11.6-14.8) Platelet Count 252 K/UL (150-450) Mean Platelet Volume 6.8 FL (6.5-10.1) Neutrophils (%) (Auto) 60.3 % (45.0-75.0) Lymphocytes (%) (Auto) 17.1 % (20.0-45.0) L Monocytes (%) (Auto) 8.9 % (1.0-10.0) Eosinophils (%) (Auto) 12.6 % (0.0-3.0) H Basophils (%) (Auto) 1.1 % (0.0-2.0) Sodium Level 131 MMOL/L (136-145) L Potassium Level 3.8 MMOL/L (3.5-5.1) Chloride Level 101 MMOL/L (98-107) Carbon Dioxide Level 24 MMOL/L (21-32) Anion Gap 6 mmol/L (5-15) Blood Urea Nitrogen 6 mg/dL (7-18) L Creatinine 0.8 MG/DL (0.55-1.30) Estimat Glomerular Filtration Rate > 60 mL/min (>60) Glucose Level 119 MG/DL (74-106) H Calcium Level 8.1 MG/DL (8.5-10.1) L Phosphorus Level 3.3 MG/DL (2.5-4.9) Magnesium Level 1.8 MG/DL (1.8-2.4) Total Bilirubin 0.4 MG/DL (0.2-1.0) Aspartate Amino Transf (AST/SGOT) 19 U/L (15-37) Alanine Aminotransferase (ALT/SGPT) 17 U/L (12-78) Alkaline Phosphatase 75 U/L (46-116) Total Protein 6.5 G/DL (6.4-8.2) Albumin 2.4 G/DL (3.4-5.0) L Globulin 4.1 g/dL Albumin/Globulin Ratio 0.6 (1.0-2.7) L Vancomycin Level Trough 7.5 ug/mL (5.0-12.0) Current Medications Medications (Trade) Dose Ordered Sig/Rosio Route PRN Reason Start Time Stop Time Status Last Admin Dose Admin Acetaminophen (Tylenol) 650 mg Q8HR PRN ORAL Pain Scale (3-5) 09/23/20 20:00 10/23/20 19:59 Aspirin (ASA) 81 mg DAILY ORAL 09/24/20 12:15 11/08/20 12:14 09/25/20 09:27 Cefepime HCl 2 gm/ Dextrose 55 ml @ 110 mls/hr Q24H IVPB 09/25/20 01:00 10/02/20 00:59 09/25/20 00:37 Diphenhydramine HCl (Benadryl) 25 mg Q6H PRN IVP Itching 09/25/20 11:45 10/25/20 11:44 09/25/20 12:29 Furosemide (Lasix) 20 mg EVERY 8 HOURS IV 09/25/20 14:00 10/25/20 13:59 09/25/20 15:45 Hydralazine HCl (Apresoline) 25 mg Q4H PRN ORAL BP over 160 systolic 09/23/20 15:45 12/22/20 15:44 Lorazepam (Ativan 2mg/ml 1ml) 0.5 mg Q8HR PRN IV For Anxiety 09/23/20 20:00 09/30/20 19:59 09/24/20 22:47 Metoprolol Tartrate (Lopressor) 25 mg Q12HR ORAL 09/24/20 21:00 12/23/20 20:59 09/25/20 09:28 Morphine Sulfate (Morphine Sulfate) 1 mg Q4H PRN IVP For pain (6-10) 09/23/20 20:00 09/30/20 19:59 Ondansetron HCl (Zofran) 4 mg Q4H PRN IVP Nausea & Vomiting 09/23/20 20:45 10/23/20 20:44 Pantoprazole (Protonix) 40 mg EVERY 12 HOURS ORAL 09/25/20 21:00 10/25/20 20:59 Potassium Chloride (K-Dur) 40 meq TWICE A DAY ORAL 09/25/20 18:00 12/24/20 17:59 Quetiapine Fumarate (SEROqueL) 25 mg QHS ORAL 09/23/20 21:00 11/07/20 20:59 09/24/20 21:00 Sodium Chloride 500 ml @ 30 mls/hr ONCE ONCE IV 09/25/20 15:00 09/26/20 07:39 09/25/20 15:46 Vancomycin HCl ([facility] pharmacy to dose) 1 ea DAILY PRN MISC Per rx protocol 09/23/20 20:45 10/23/20 20:44 Vancomycin HCl 750 mg/Dextrose 275 ml @ 183.333 mls/hr Q12HR@0600,1800 IVPB 09/26/20 06:00 10/01/20 05:59 Germain Wadsworth M.D. Sep 25, 2020 16:01
--- NOTE | 2020-09-25 19:13 | NUR ---
NURSE HAND-OFF REPORT: Important Events on Shift:[NA] Patient Status: Stable Diet: Cardiac Pending Orders: NA Pending Results/Labs:Morning labs Pending MD notification:NA Latest Vital Signs: Temperature 97.5 , Pulse 58 , B/P 136 /67 , Respiratory Rate 20 , O2 SAT 94 , Room Air, O2 Flow Rate . Vital Sign Comment: Stable EKG Rhythm: Sinus Bradycardia Rhythm change?: N MD Notified?: - MD Response: Latest Parker Fall Score: 20 Fall Risk: Low Risk Safety Measures: Call light Within Reach, Bed Alarm Zone 1, Side Rails Side Rails x2, Bed position Low and Locked. Fall Precautions: Yellow Socks Yellow Gown Door Sign Patient Fall Education Report given to Martin/TEOFILO.
--- NOTE | 2020-09-25 19:27 | NUR ---
NURSE NOTES: Pt received from TEOFILO Tate. Pt is resting comfortably in bed and denies any pain. Pt is A/Ox3 and on bedrest with bathroom privileges, pt requires assistance out of bed and to walker. Pt has cardiac monitoring SR and asymptomatic. Pt is breathing unlabored on RA and asymptomatic. Pt has LHand 22G patent with skin dry and intact. Bed is locked and in lowest position with call light within reach. Will continue to monitor.
--- NOTE | 2020-09-25 19:29 | Consultation ---
DATE OF CONSULTATION: 09/25/2020 CONSULTING PHYSICIAN: Roverto Salomon M.D. HISTORY OF PRESENT ILLNESS: This is an 85-year-old female with a history of anxiety disorder, depression, dementia, coronary artery disease, hypertension, who has been admitted to the hospital due to generalized pain and weakness. The patient is having cognitive impairment, presents with depressed mood, anxiety, hopelessness, and helplessness. She is also having COVID-19 pneumonia. The patient is asleep and arousable and poor historian due to cognitive impairment. She is able to answer simple questions. PAST PSYCHIATRIC HISTORY: Anxiety, on psychotropic medications. PAST MEDICAL HISTORY: Significant for hypertension, GERD, coronary artery disease. ALLERGIES: No known drug allergies. SUBSTANCE ABUSE HISTORY: No known history of illicit drug use or alcohol. The patient lives at home. 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 No behavioral issues. MENTAL STATUS EXAMINATION: The patient is alert and oriented times self, place, and situation. Mood is depressed. Affect is blunted. Thought process is concrete. Thought content, no suicidal or homicidal ideation. Cognition is impaired. Insight and judgment impaired. ASSESSMENT: [place] I Cognitive impairment. Major depressive disorder [place] II Deferred. [place] III As above. [place] IV Low. [place] V 20. PLAN: 1. The patient was started on Seroquel 25 at bedtime due to anxiety sundowning at nighttime. 2. Ativan as needed was started by the primary physician. 3. Discussed with the primary physician. Roverto Salomon M.D. DR: TRINIDAD JOB#: [id number] CC:
[2020-09-25 20:00] VITALS: BP 129/68
[2020-09-25] MEDS: LORazepam Inj 2mg/ml 1ml IV PRN (23:06)
[2020-09-26] VITALS: BP 131/66
[2020-09-26] MEDS: Cefepime HCl 2 GM in D5W 55 ML IVPB SCH (01:00)
[2020-09-26 04:00] VITALS: BP 132/73
[2020-09-26] MEDS: Vancomycin 750mg/D5W 275ml IVPB SCH ×4 (06:29→17:52)
--- NOTE | 2020-09-26 06:42 | Hematology/Onc Progress Note ---
Assessment/Plan Assessment/Plan Assessment and Recs # Breast mass, left sided [id number] new -- requires further evaluation --> mammogram as needed outpatient as unable to do here --> will need outpatient biopsy likely as well --> may need resection --> given now covid19, conservative management # Anemia due to underlying GI bleed --> anemia panel reviewed --> transfuse as needed prn --> hgb 11 # Elevated troponin due to covid19 --> per Dr. Mullen, conservative mangement # Hyponatremia --> ivfs # COVID-19 -> steriods, abx, remdesivir # Pneumonia --> abx # Dvt ppx scds Appreciate consultation and dw Rn Subjective Constitutional: Denies: no symptoms, chills, fever, malaise, weakness, other HEENT: Denies: no symptoms, eye pain, blurred vision, tearing, double vision, ear pain, ear discharge, nose pain, nose congestion, throat pain, throat swelling, mouth pain, mouth swelling, other Cardiovascular: Denies: no symptoms, chest pain, edema, irregular heart rate, lightheadedness, palpitations, syncope, other Gastrointestinal/Abdominal: Denies: no symptoms, abdomen distended, abdominal pain, black stools, tarry stools, blood in stool, constipated, diarrhea, difficulty swallowing, nausea, poor appetite, poor fluid intake, rectal bleeding, vomiting, other Genitourinary: Denies: no symptoms, burning, discharge, frequency, flank pain, hematuria, incontinence, pain, urgency, other Neurologic/Psychiatric: Denies: no symptoms, anxiety, depressed, emotional problems, headache, numbness, paresthesia, pre-existing deficit, seizure, tingling, tremors, weakness, other Endocrine: Denies: no symptoms, excessive sweating, flushing, intolerance to cold, intolerance to heat, increased hunger, increased thirst, increased urine, unexplained weight gain, unexplained weight loss, other Hematologic/Lymphatic: Denies: no symptoms, anemia, easy bleeding, easy bruising, adenopathy, other Allergies: Coded Allergies: NO KNOWN ALLERGIES (Unverified Allergy, Unknown, 09/11/15) Subjective 09/26 no major events, no fc, on abx, vanc/cefepime Objective Objective Current Medications Medications (Trade) Dose Ordered Sig/Rosio Route PRN Reason Start Time Stop Time Status Last Admin Dose Admin Acetaminophen (Tylenol) 650 mg Q8HR PRN ORAL Pain Scale (3-5) 09/23/20 20:00 10/23/20 19:59 Aspirin (ASA) 81 mg DAILY ORAL 09/24/20 12:15 11/08/20 12:14 09/25/20 09:27 Cefepime HCl 2 gm/ Dextrose 55 ml @ 110 mls/hr Q24H IVPB 09/25/20 01:00 10/02/20 00:59 09/26/20 01:00 Diphenhydramine HCl (Benadryl) 25 mg Q6H PRN IVP Itching 09/25/20 11:45 10/25/20 11:44 09/25/20 12:29 Furosemide (Lasix) 20 mg EVERY 8 HOURS IV 09/25/20 14:00 10/25/20 13:59 09/25/20 22:00 Hydralazine HCl (Apresoline) 25 mg Q4H PRN ORAL BP over 160 systolic 09/23/20 15:45 12/22/20 15:44 Lorazepam (Ativan 2mg/ml 1ml) 0.5 mg Q8HR PRN IV For Anxiety 09/23/20 20:00 09/30/20 19:59 09/25/20 23:06 Metoprolol Tartrate (Lopressor) 25 mg Q12HR ORAL 09/24/20 21:00 12/23/20 20:59 09/25/20 21:00 Morphine Sulfate (Morphine Sulfate) 1 mg Q4H PRN IVP For pain (6-10) 09/23/20 20:00 09/30/20 19:59 Ondansetron HCl (Zofran) 4 mg Q4H PRN IVP Nausea & Vomiting 09/23/20 20:45 10/23/20 20:44 Pantoprazole (Protonix) 40 mg EVERY 12 HOURS ORAL 09/25/20 21:00 10/25/20 20:59 09/25/20 21:00 Potassium Chloride (K-Dur) 40 meq TWICE A DAY ORAL 09/25/20 18:00 12/24/20 17:59 09/25/20 18:00 Quetiapine Fumarate (SEROqueL) 25 mg QHS ORAL 09/23/20 21:00 11/07/20 20:59 09/25/20 21:00 Sodium Chloride 500 ml @ 30 mls/hr ONCE ONCE IV 09/25/20 15:00 09/26/20 07:39 09/25/20 15:46 Vancomycin HCl (Vanco pharmacy to dose) 1 ea DAILY PRN MISC Per rx protocol 09/23/20 20:45 10/23/20 20:44 Vancomycin HCl 750 mg/Dextrose 275 ml @ 183.333 mls/hr Q12HR@0600,1800 IVPB 09/26/20 06:00 10/01/20 05:59 09/26/20 06:29 Last 24 Hour Vital Signs Date Time Temp Pulse Resp B/P (MAP) Pulse Ox O2 Delivery O2 Flow Rate FiO2 09/26/20 00:00 64 09/26/20 00:00 97.1 60 18 131/66 (87) 95 09/25/20 23:36 68 20 134/72 96 09/25/20 23:06 62 20 129/68 94 09/25/20 21:00 62 129/68 09/25/20 21:00 Room Air 09/25/20 20:00 62 09/25/20 20:00 96.0 59 18 129/68 (88) 94 09/25/20 16:00 97.5 55 20 136/67 (90) 94 09/25/20 16:00 58 09/25/20 12:00 84 09/25/20 12:00 97.6 63 20 159/86 (110) 96 09/25/20 09:28 61 159/75 09/25/20 09:00 Room Air 09/25/20 08:00 97.7 61 20 159/75 (103) 95 09/25/20 08:00 59 09/25/20 04:00 97.7 59 20 133/73 (93) 96 09/25/20 03:25 60 09/25/20 00:00 97.5 64 18 126/65 (85) 95 09/25/20 00:00 59 09/24/20 23:17 66 16 113/72 96 09/24/20 22:57 Room Air 09/24/20 22:47 66 16 113/72 96 09/24/20 22:36 66 16 113/72 96 09/24/20 22:06 74 18 131/62 94 09/24/20 21:00 74 131/62 09/24/20 20:00 66 09/24/20 20:00 97.7 68 18 140/82 (101) 97 09/24/20 16:00 59 09/24/20 15:55 97.4 70 18 118/74 (89) 96 09/24/20 12:00 97.9 62 17 116/65 (82) 95 09/24/20 12:00 61 09/24/20 09:00 Room Air 09/24/20 08:00 75 09/24/20 08:00 97.9 70 19 141/72 (95) 96 l Intake and Output 09/25/20 09/26/20 19:00 07:00 # Voids 8 2 Labs Test 09/23/20 11:45 09/23/20 12:30 09/23/20 21:00 09/24/20 04:00 White Blood Count 7.3 K/UL (4.8-10.8) Red Blood Count 4.25 M/UL (4.20-5.40) Hemoglobin 12.7 G/DL (12.0-16.0) Hematocrit 39.4 % (37.0-47.0) Mean Corpuscular Volume 93 FL (80-99) Mean Corpuscular Hemoglobin 29.8 PG (27.0-31.0) Mean Corpuscular Hemoglobin Concent 32.2 G/DL (32.0-36.0) Red Cell Distribution Width 12.5 % (11.6-14.8) Platelet Count 303 K/UL (150-450) Mean Platelet Volume 6.4 FL (6.5-10.1) Neutrophils (%) (Auto) 78.0 % (45.0-75.0) Lymphocytes (%) (Auto) 9.6 % (20.0-45.0) Monocytes (%) (Auto) 8.3 % (1.0-10.0) Eosinophils (%) (Auto) 2.8 % (0.0-3.0) Basophils (%) (Auto) 1.3 % (0.0-2.0) Prothrombin Time 11.7 SEC (9.30-11.50) Prothromb Time International Ratio 1.1 (0.9-1.1) Activated Partial Thromboplast Time 25 SEC (23-33) Sodium Level 130 MMOL/L (136-145) Potassium Level 4.4 MMOL/L (3.5-5.1) Chloride Level 96 MMOL/L (98-107) Carbon Dioxide Level 24 MMOL/L (21-32) Anion Gap 10 mmol/L (5-15) Blood Urea Nitrogen 11 mg/dL (7-18) Creatinine 0.7 MG/DL (0.55-1.30) Estimat Glomerular Filtration Rate > 60 mL/min (>60) Glucose Level 137 MG/DL (74-106) Calcium Level 9.2 MG/DL (8.5-10.1) Magnesium Level 1.9 MG/DL (1.8-2.4) Total Bilirubin 0.7 MG/DL (0.2-1.0) Aspartate Amino Transf (AST/SGOT) 38 U/L (15-37) Alanine Aminotransferase (ALT/SGPT) 22 U/L (12-78) Alkaline Phosphatase 95 U/L (46-116) Troponin I 0.327 ng/mL (0.000-0.056) 0.230 ng/mL (0.000-0.056) Pro-B-Type Natriuretic Peptide 5097 pg/mL (0-125) Total Protein 7.6 G/DL (6.4-8.2) Albumin 3.2 G/DL (3.4-5.0) Globulin 4.4 g/dL Albumin/Globulin Ratio 0.7 (1.0-2.7) Lipase 107 U/L (73-393) Urine Color Pale yellow Urine Appearance Slightly cloudy Urine pH 7 (4.5-8.0) Urine Specific Etta 1.005 (1.005-1.035) Urine Protein Negative (NEGATIVE) Urine Glucose (UA) Negative (NEGATIVE) Urine Ketones Negative (NEGATIVE) Urine Blood 2+ (NEGATIVE) Urine Nitrite Negative (NEGATIVE) Urine Bilirubin Negative (NEGATIVE) Urine Urobilinogen Normal MG/DL (0.0-1.0) Urine Leukocyte Esterase 3+ (NEGATIVE) Urine RBC 2-4 /HPF (0 - 2) Urine WBC 40-60 /HPF (0 - 2) Urine Squamous Epithelial Cells Few /LPF (NONE/OCC) Urine Bacteria Few /HPF (NONE) Lactic Acid Level 0.80 mmol/L (0.4-2.0) Hemoglobin A1c 6.4 % (4.3-6.0) Test 09/24/20 07:40 09/24/20 16:15 09/25/20 06:05 09/25/20 12:30 White Blood Count 4.6 K/UL (4.8-10.8) 4.8 K/UL (4.8-10.8) Red Blood Count 3.66 M/UL (4.20-5.40) 3.63 M/UL (4.20-5.40) Hemoglobin 11.2 G/DL (12.0-16.0) 11.0 G/DL (12.0-16.0) Hematocrit 33.1 % (37.0-47.0) 33.9 % (37.0-47.0) Mean Corpuscular Volume 90 FL (80-99) 94 FL (80-99) Mean Corpuscular Hemoglobin 30.5 PG (27.0-31.0) 30.3 PG (27.0-31.0) Mean Corpuscular Hemoglobin Concent 33.7 G/DL (32.0-36.0) 32.4 G/DL (32.0-36.0) Red Cell Distribution Width 13.3 % (11.6-14.8) 13.1 % (11.6-14.8) Platelet Count 274 K/UL (150-450) 252 K/UL (150-450) Mean Platelet Volume 6.9 FL (6.5-10.1) 6.8 FL (6.5-10.1) Neutrophils (%) (Auto) 62.3 % (45.0-75.0) 60.3 % (45.0-75.0) Lymphocytes (%) (Auto) 15.5 % (20.0-45.0) 17.1 % (20.0-45.0) Monocytes (%) (Auto) 10.3 % (1.0-10.0) 8.9 % (1.0-10.0) Eosinophils (%) (Auto) 10.8 % (0.0-3.0) 12.6 % (0.0-3.0) Basophils (%) (Auto) 1.1 % (0.0-2.0) 1.1 % (0.0-2.0) Sodium Level 134 MMOL/L (136-145) 131 MMOL/L (136-145) Potassium Level 3.4 MMOL/L (3.5-5.1) 3.8 MMOL/L (3.5-5.1) Chloride Level 101 MMOL/L (98-107) 101 MMOL/L (98-107) Carbon Dioxide Level 25 MMOL/L (21-32) 24 MMOL/L (21-32) Anion Gap 8 mmol/L (5-15) 6 mmol/L (5-15) Blood Urea Nitrogen 5 mg/dL (7-18) 6 mg/dL (7-18) Creatinine 0.8 MG/DL (0.55-1.30) 0.8 MG/DL (0.55-1.30) Estimat Glomerular Filtration Rate > 60 mL/min (>60) > 60 mL/min (>60) Glucose Level 119 MG/DL (74-106) 119 MG/DL (74-106) Osmolality 276 mOsm/kg (297-317) Uric Acid 3.9 MG/DL (2.6-7.2) Calcium Level 8.1 MG/DL (8.5-10.1) 8.1 MG/DL (8.5-10.1) Phosphorus Level 3.3 MG/DL (2.5-4.9) 3.3 MG/DL (2.5-4.9) Magnesium Level 1.8 MG/DL (1.8-2.4) 1.8 MG/DL (1.8-2.4) Iron Level 42 ug/dL (50-175) Total Iron Binding Capacity 179 ug/dL (250-450) Percent Iron Saturation 23 % (15-50) Unsaturated Iron Binding 137 ug/dL (112-346) Ferritin 179 NG/ML (8-388) Total Bilirubin 0.4 MG/DL (0.2-1.0) 0.4 MG/DL (0.2-1.0) Gamma Glutamyl Transpeptidase 17 U/L (5-85) Aspartate Amino Transf (AST/SGOT) 20 U/L (15-37) 19 U/L (15-37) Alanine Aminotransferase (ALT/SGPT) 18 U/L (12-78) 17 U/L (12-78) Alkaline Phosphatase 75 U/L (46-116) 75 U/L (46-116) Lactate Dehydrogenase 164 U/L (81-234) Troponin I 0.195 ng/mL (0.000-0.056) 0.121 ng/mL (0.000-0.056) C-Reactive Protein, Quantitative < 0.4 mg/dL (0.00-0.90) Pro-B-Type Natriuretic Peptide 3349 pg/mL (0-125) Total Protein 6.7 G/DL (6.4-8.2) 6.5 G/DL (6.4-8.2) Albumin 2.5 G/DL (3.4-5.0) 2.4 G/DL (3.4-5.0) Globulin 4.2 g/dL 4.1 g/dL Albumin/Globulin Ratio 0.6 (1.0-2.7) 0.6 (1.0-2.7) Triglycerides Level 93 MG/DL (30-150) Cholesterol Level 176 MG/DL (< 200) LDL Cholesterol 114 mg/dL (<100) HDL Cholesterol 39 MG/DL (40-60) Cholesterol/HDL Ratio 4.5 (3.3-4.4) Carcinoembryonic Antigen 4.2 ng/mL (0.0-4.7) CA 125 Antigen 70.4 U/mL (0.0-38.1) Vitamin B12 Level 279 PG/ML (193-986) Folate 18.3 NG/ML (8.6-58.9) Thyroid Stimulating Hormone (TSH) 1.996 uiU/mL (0.358-3.740) D-Dimer 3.91 mg/L FEU (0.00-0.49) Vancomycin Level Trough 7.5 ug/mL (5.0-12.0) Height (Feet): 5 Height (Inches): 3.00 Weight (Pounds): 120 Objective Physical Exam Sp02 EP: reviewed, normal General: no apparent distress, alert, GCS 15, non-toxic Head: normocephalic, atraumatic HEENT: hearing grossly normal, normal pharynx, no angioedema, normal voice Neck: full range of motion, supple/symm/no masses Respiratory: chest non-tender, rhonchi, speaking full sentences Cardiovascular: regular rate, rhythm, no edema Gi: soft, Epigastric tenderness to palpation Genitourinary: no CVA tenderness Musculoskeletal: normal range of motion Neurologic: materials director III-XII nml as tested Skin: pallor Lymphatic: no adenopathy Louie Mtz MD Sep 26, 2020 06:42
--- NOTE | 2020-09-26 07:10 | NUR ---
NURSE NOTES: Received report from Maynor/RN. Observed patient awake, Lying semi-shirley's, resting comfortably. On room air no acute distress/SOB noted. Able to make needs known. Denies pain at this time. IV on left hand, patent and intact. Bed in low position and locked, Call light within reach, Encouraged to use call light when needed. Will continue plan of care.
[2020-09-26 08:00] VITALS: BP 140/50
--- NOTE | 2020-09-26 08:03 | NUR ---
CASE MANAGEMENT:REVIEW 09/26/20 SI: ELLIE PNA. BREAST MASS. 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
[2020-09-26] MEDS: Aspirin Baby 81mg ORAL SCH (08:20)
[2020-09-26] MEDS: LORazepam Inj 2mg/ml 1ml IV PRN (08:21)
--- NOTE | 2020-09-26 08:42 | General Progress Note ---
Subjective ROS Limited/Unobtainable: Yes Allergies: Coded Allergies: NO KNOWN ALLERGIES (Unverified Allergy, Unknown, 09/11/15) Objective Last 24 Hour Vital Signs Date Time Temp Pulse Resp B/P (MAP) Pulse Ox O2 Delivery O2 Flow Rate FiO2 09/26/20 08:21 61 20 140/50 96 09/26/20 08:20 61 140/50 09/26/20 08:00 97.5 61 20 140/50 (80) 96 09/26/20 04:00 97.6 58 20 132/73 (92) 97 09/26/20 04:00 83 09/26/20 00:00 64 09/26/20 00:00 97.1 60 18 131/66 (87) 95 09/25/20 23:36 68 20 134/72 96 09/25/20 23:06 62 20 129/68 94 09/25/20 21:00 62 129/68 09/25/20 21:00 Room Air 09/25/20 20:00 62 09/25/20 20:00 96.0 59 18 129/68 (88) 94 09/25/20 16:00 97.5 55 20 136/67 (90) 94 09/25/20 16:00 58 09/25/20 12:00 84 09/25/20 12:00 97.6 63 20 159/86 (110) 96 09/25/20 09:28 61 159/75 09/25/20 09:00 Room Air Intake and Output 09/25/20 09/26/20 19:00 07:00 # Voids 8 2 Laboratory Tests 09/25/20 12:30: Vancomycin Level Trough 7.5 Height (Feet): 5 Height (Inches): 3.00 Weight (Pounds): 120 General Appearance: no apparent distress EENT: normal ENT inspection Neck: supple Cardiovascular: normal rate Respiratory/Chest: decreased breath sounds Abdomen: normal bowel sounds, non tender, soft Extremities: non-tender Assessment/Plan Problem List: (1) COVID-19 ICD Codes: U07.1 - COVID-19 SNOMED: 643517348 (2) Breast mass ICD Codes: N63.0 - Unspecified lump in unspecified breast SNOMED: 94904957 (3) Anemia ICD Codes: D64.9 - Anemia, unspecified SNOMED: 154827143 (4) Abdominal pain ICD Codes: R10.9 - Unspecified abdominal pain SNOMED: 93547430 (5) GI bleed ICD Codes: K92.2 - Gastrointestinal hemorrhage, unspecified SNOMED: 32391492 (6) GERD (gastroesophageal reflux disease) ICD Codes: K21.9 - Gastro-esophageal reflux disease without esophagitis SNOMED: 853659262 (7) Depression ICD Codes: F32.9 - Major depressive disorder, single episode, unspecified SNOMED: 14861929 (8) HTN (hypertension) ICD Codes: I10 - Essential (primary) hypertension SNOMED: 74875954 Assessment/Plan: PLAN: Given everything is stable, H and H, given active COVID, given elevated troponin, we are going to hold off doing endoscopy at this time. We are going to continue on Protonix q.12h., monitor H and H, transfuse as needed. Follow up on stool OB. Consider GI procedures if absolutely needed Anibal Denson MD Sep 26, 2020 08:42
[2020-09-26] MEDS: Docusate 100mg cap ORAL SCH ×2 (09:01→17:52)
--- NOTE | 2020-09-26 10:27 | General Progress Note ---
Subjective Allergies: Coded Allergies: NO KNOWN ALLERGIES (Unverified Allergy, Unknown, 09/11/15) Objective Last 24 Hour Vital Signs Date Time Temp Pulse Resp B/P (MAP) Pulse Ox O2 Delivery O2 Flow Rate FiO2 09/26/20 09:00 Room Air 09/26/20 08:51 61 20 140/50 96 09/26/20 08:21 61 20 140/50 96 09/26/20 08:20 61 140/50 09/26/20 08:00 62 09/26/20 08:00 97.5 61 20 140/50 (80) 96 09/26/20 04:00 97.6 58 20 132/73 (92) 97 09/26/20 04:00 83 09/26/20 00:00 64 09/26/20 00:00 97.1 60 18 131/66 (87) 95 09/25/20 23:36 68 20 134/72 96 09/25/20 23:06 62 20 129/68 94 09/25/20 21:00 62 129/68 09/25/20 21:00 Room Air 09/25/20 20:00 62 09/25/20 20:00 96.0 59 18 129/68 (88) 94 09/25/20 16:00 97.5 55 20 136/67 (90) 94 09/25/20 16:00 58 09/25/20 12:00 84 09/25/20 12:00 97.6 63 20 159/86 (110) 96 Intake and Output 09/25/20 09/26/20 19:00 07:00 # Voids 8 2 Laboratory Tests 09/25/20 12:30: Vancomycin Level Trough 7.5 09/26/20 10:00: White Blood Count [Pending], Red Blood Count [Pending], Hemoglobin [Pending], Hematocrit [Pending], Mean Corpuscular Volume [Pending], Mean Corpuscular Hemoglobin [Pending], Mean Corpuscular Hemoglobin Concent [Pending], Red Cell Distribution Width [Pending], Platelet Count [Pending], Mean Platelet Volume [Pending], Neutrophils (%) (Auto) [Pending], Lymphocytes (%) (Auto) [Pending], Monocytes (%) (Auto) [Pending], Eosinophils (%) (Auto) [Pending], Basophils (%) (Auto) [Pending], Sodium Level [Pending], Potassium Level [Pending], Chloride Level [Pending], Carbon Dioxide Level [Pending], Blood Urea Nitrogen [Pending], Creatinine [Pending], Estimat Glomerular Filtration Rate [Pending], Glucose Level [Pending], Calcium Level [Pending] Height (Feet): 5 Height (Inches): 3.00 Weight (Pounds): 120 Assessment/Plan Assessment/Plan: S: I am ok O: seems comfortable, denies chest pain or sob PHYSICAL EXAMINATION: HEENT: Head and neck, atraumatic and normocephalic. CHEST: Clear to auscultation. HEART: S1 and S2. Regular rate and rhythm. ABDOMEN: Soft. No organomegaly. MUSCULOSKELETAL: No gross lateralized motor deficit. NEUROLOGY: The patient is awake, alert, oriented x3. Meds, Labs: reviewed and reconciled IMAGING: Abdominopelvic CT scan shows patchy ground-glass opacities in the right lower lung, new mass in the left breast. Chest x-ray dated September 23, 2020 shows opacity in the right lung. MICROBIOLOGY: Pending results for COVID. ASSESSMENT AND PLAN: 1. COVID-19 pneumonia. 3. Left-sided breast mass highly suspicious for malignancy. 4. Hypertension. 5. Hyponatremia. 6. Coronary artery disease. 7. Non-ST myocardial infarction. 8. GI and DVT prophylaxis. PLAN OF CARE: C/w current management ASA, in light of NSTEMI notes from Cardio and GI reviewed decreasing Trop level. Conservative mgt is justified Eugenio Ramirez MD Sep 26, 2020 10:27
[2020-09-26 10:33] LABS: BASOPHILS % (AUTO) 0.7 % (0.0-2.0); EOSINOPHILS % (AUTO) 10.3 % (0.0-3.0); HEMATOCRIT 37.9 % (37.0-47.0); HEMOGLOBIN 12.4 G/DL (12.0-16.0); LYMPHOCYTES % (AUTO) 14.9 % (20.0-45.0); MEAN CORPUSCULAR VOLUME 88 FL (80-99); MONOCYTES % (AUTO) 11.3 % (1.0-10.0); NEUTROPHILS % (AUTO) 62.7 % (45.0-75.0); PLATELET COUNT 273 K/UL (150-450); RED BLOOD COUNT 4.29 M/UL (4.20-5.40); RED CELL DISTRIBUTION WIDTH 13.1 % (11.6-14.8); WHITE BLOOD COUNT 5.8 K/UL (4.8-10.8)
[2020-09-26 10:40] LABS: CALCIUM 8.8 MG/DL (8.5-10.1); POTASSIUM 3.9 MMOL/L (3.5-5.1)
[2020-09-26 12:00] VITALS: BP 130/72
--- NOTE | 2020-09-26 12:47 | Nephrology Progress Note ---
Assessment/Plan Problem List: (1) Hyponatremia (2) Elevated troponin (3) COVID-19 (4) Pneumonia (5) Breast mass Assessment Hyponatremia etiology to be identified GI bleed Elevated troponin COVID-19 Pneumonia ? UTI ? Neoplastic process CT IMPRESSION: 1. Patchy groundglass opacities and densities in the right lower lung and at the edge of the [id number] in the left lower lobe, concerning for an infectious/process. 2. New mass in the left breast, measuring approximately 3.0 x 2.1 x 2.5 cm, concerning for neoplasm. 3. Nonspecific enlarged retroperitoneal lymph nodes. Plan September 26: Serum sodium 133. Continues on IV Lasix. 3% saline 500 cc ordered. Continue to monitor electrolytes magnesium uric acid. Aim to keep output more than intake. September 25: Labs reviewed. 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 Cancer marke rs CA-125 elevated. Continue per oncology. Will start 3% saline infusion with IV Lasix to keep intake less than output. Monitor electrolytes. September 24: Labs reviewed. Serum sodium rising. Low potassium replaced. Cancer markers pending. Continue per consultants. Previously: Slow hydration Hyponatremia work-up Monitor electrolytes and hemoglobin and hematocrit Check cancer markers of CEA, CA 199, Ca1 25 Per orders Subjective ROS Limited/Unobtainable: No Constitutional: Reports: malaise, weakness Objective Objective Last 24 Hour Vital Signs Date Time Temp Pulse Resp B/P (MAP) Pulse Ox O2 Delivery O2 Flow Rate FiO2 09/26/20 12:00 97.7 60 20 130/72 (91) 96 09/26/20 09:00 Room Air 09/26/20 08:51 61 20 140/50 96 09/26/20 08:21 61 20 140/50 96 09/26/20 08:20 61 140/50 09/26/20 08:00 62 09/26/20 08:00 97.5 61 20 140/50 (80) 96 09/26/20 04:00 97.6 58 20 132/73 (92) 97 09/26/20 04:00 83 09/26/20 00:00 64 09/26/20 00:00 97.1 60 18 131/66 (87) 95 09/25/20 23:36 68 20 134/72 96 09/25/20 23:06 62 20 129/68 94 09/25/20 21:00 62 129/68 09/25/20 21:00 Room Air 09/25/20 20:00 62 09/25/20 20:00 96.0 59 18 129/68 (88) 94 09/25/20 16:00 97.5 55 20 136/67 (90) 94 09/25/20 16:00 58 Intake and Output 09/25/20 09/26/20 19:00 07:00 # Voids 8 2 Current Medications Medications (Trade) Dose Ordered Sig/Rosio Route PRN Reason Start Time Stop Time Status Last Admin Dose Admin Acetaminophen (Tylenol) 650 mg Q8HR PRN ORAL Pain Scale (3-5) 09/23/20 20:00 10/23/20 19:59 Aspirin (ASA) 81 mg DAILY ORAL 09/24/20 12:15 11/08/20 12:14 09/26/20 08:20 Cefepime HCl 2 gm/ Dextrose 55 ml @ 110 mls/hr Q24H IVPB 09/25/20 01:00 10/02/20 00:59 09/26/20 01:00 Diphenhydramine HCl (Benadryl) 25 mg Q6H PRN IVP Itching 09/25/20 11:45 10/25/20 11:44 09/25/20 12:29 Docusate Sodium (Colace) 100 mg TWICE A DAY ORAL 09/26/20 09:00 10/26/20 08:59 09/26/20 09:01 Furosemide (Lasix) 20 mg EVERY 8 HOURS IV 09/25/20 14:00 10/25/20 13:59 09/25/20 22:00 Hydralazine HCl (Apresoline) 25 mg Q4H PRN ORAL BP over 160 systolic 09/23/20 15:45 12/22/20 15:44 Lorazepam (Ativan 2mg/ml 1ml) 0.5 mg Q8HR PRN IV For Anxiety 09/23/20 20:00 09/30/20 19:59 09/26/20 08:21 Metoprolol Tartrate (Lopressor) 25 mg Q12HR ORAL 09/24/20 21:00 12/23/20 20:59 09/26/20 08:20 Morphine Sulfate (Morphine Sulfate) 1 mg Q4H PRN IVP For pain (6-10) 09/23/20 20:00 09/30/20 19:59 Ondansetron HCl (Zofran) 4 mg Q4H PRN IVP Nausea & Vomiting 09/23/20 20:45 10/23/20 20:44 Pantoprazole (Protonix) 40 mg EVERY 12 HOURS ORAL 09/25/20 21:00 10/25/20 20:59 09/26/20 08:20 Potassium Chloride (K-Dur) 40 meq TWICE A DAY ORAL 09/25/20 18:00 12/24/20 17:59 09/26/20 08:20 Quetiapine Fumarate (SEROqueL) 25 mg QHS ORAL 09/23/20 21:00 11/07/20 20:59 09/25/20 21:00 Sodium Chloride 500 ml @ 30 mls/hr ONCE ONCE IV 09/26/20 14:00 09/27/20 06:39 Vancomycin HCl (Vanco pharmacy to dose) 1 ea DAILY PRN MISC Per rx protocol 09/23/20 20:45 10/23/20 20:44 Vancomycin HCl 750 mg/Dextrose 275 ml @ 183.333 mls/hr Q12HR@0600,1800 IVPB 09/26/20 06:00 10/01/20 05:59 09/26/20 06:29 Laboratory Tests 09/26/20 10:00: White Blood Count 5.8, Red Blood Count 4.29, Hemoglobin 12.4, Hematocrit 37.9, Mean Corpuscular Volume 88, Mean Corpuscular Hemoglobin 28.9, Mean Corpuscular Hemoglobin Concent 32.7, Red Cell Distribution Width 13.1, Platelet Count 273, Mean Platelet Volume 7.2, Neutrophils (%) (Auto) 62.7, Lymphocytes (%) (Auto) 14.9L, Monocytes (%) (Auto) 11.3H, Eosinophils (%) (Auto) 10.3H, Basophils (%) (Auto) 0.7, Sodium Level 133L, Potassium Level 3.9, Chloride Level 101, Carbon Dioxide Level 26, Anion Gap 7, Blood Urea Nitrogen 10, Creatinine 1.0, Estimat Glomerular Filtration Rate 52.8, Glucose Level 103, Calcium Level 8.8 Height (Feet): 5 Height (Inches): 3.00 Weight (Pounds): 120 General Appearance: no apparent distress, lethargic Respiratory/Chest: decreased breath sounds Abdomen: soft Evan Tierney MD Sep 26, 2020 12:47
[2020-09-26] MEDS: Nitroglycerin Patch 0.4mg TDERMAL SCH (13:28)
[2020-09-26] MEDS ORDERED: NaCl 3% 500ml 500 ML IV ONE (14:00)
--- NOTE | 2020-09-26 15:18 | Pulmonology Progress Note ---
Subjective ROS Limited/Unobtainable: No Interval Events: none major reported per nursing Constitutional: Reports: no symptoms Gastrointestinal/Abdominal: Reports: no symptoms Psychiatric: Reports: anxiety Skin: Reports: no symptoms Musculoskeletal: Reports: no symptoms Allergies: Coded Allergies: NO KNOWN ALLERGIES (Unverified Allergy, Unknown, 09/11/15) Objective Last 24 Hour Vital Signs Date Time Temp Pulse Resp B/P (MAP) Pulse Ox O2 Delivery O2 Flow Rate FiO2 09/26/20 13:28 130/72 09/26/20 12:00 97.7 60 20 130/72 (91) 96 09/26/20 12:00 61 09/26/20 09:00 Room Air 09/26/20 08:51 61 20 140/50 96 09/26/20 08:21 61 20 140/50 96 09/26/20 08:20 61 140/50 09/26/20 08:00 62 09/26/20 08:00 97.5 61 20 140/50 (80) 96 09/26/20 04:00 97.6 58 20 132/73 (92) 97 09/26/20 04:00 83 09/26/20 00:00 64 09/26/20 00:00 97.1 60 18 131/66 (87) 95 09/25/20 23:36 68 20 134/72 96 09/25/20 23:06 62 20 129/68 94 09/25/20 21:00 62 129/68 09/25/20 21:00 Room Air 09/25/20 20:00 62 09/25/20 20:00 96.0 59 18 129/68 (88) 94 09/25/20 16:00 97.5 55 20 136/67 (90) 94 09/25/20 16:00 58 Intake and Output 09/25/20 09/26/20 19:00 07:00 # Voids 8 2 Objective 09/26 no change respiratory-larson 09/25 saturating at 95% on RA General Appearance: WD/WN HEENT: normocephalic Respiratory: lungs clear Cardiovascular: normal rate, regular rhythm Abdomen: soft, non tender Laboratory Tests 09/26/20 10:00: White Blood Count 5.8, Red Blood Count 4.29, Hemoglobin 12.4, Hematocrit 37.9, Mean Corpuscular Volume 88, Mean Corpuscular Hemoglobin 28.9, Mean Corpuscular Hemoglobin Concent 32.7, Red Cell Distribution Width 13.1, Platelet Count 273, Mean Platelet Volume 7.2, Neutrophils (%) (Auto) 62.7, Lymphocytes (%) (Auto) 14.9L, Monocytes (%) (Auto) 11.3H, Eosinophils (%) (Auto) 10.3H, Basophils (%) (Auto) 0.7, Sodium Level 133L, Potassium Level 3.9, Chloride Level 101, Carbon Dioxide Level 26, Anion Gap 7, Blood Urea Nitrogen 10, Creatinine 1.0, Estimat Glomerular Filtration Rate 52.8, Glucose Level 103, Calcium Level 8.8 Current Medications Medications (Trade) Dose Ordered Sig/Rosio Route PRN Reason Start Time Stop Time Status Last Admin Dose Admin Acetaminophen (Tylenol) 650 mg Q8HR PRN ORAL Pain Scale (3-5) 09/23/20 20:00 10/23/20 19:59 Aspirin (ASA) 81 mg DAILY ORAL 09/24/20 12:15 11/08/20 12:14 09/26/20 08:20 Cefepime HCl 2 gm/ Dextrose 55 ml @ 110 mls/hr Q24H IVPB 09/25/20 01:00 10/02/20 00:59 09/26/20 01:00 Diphenhydramine HCl (Benadryl) 25 mg Q6H PRN IVP Itching 09/25/20 11:45 10/25/20 11:44 09/25/20 12:29 Docusate Sodium (Colace) 100 mg TWICE A DAY ORAL 09/26/20 09:00 10/26/20 08:59 09/26/20 09:01 Furosemide (Lasix) 20 mg EVERY 8 HOURS IV 09/25/20 14:00 10/25/20 13:59 09/26/20 13:28 Hydralazine HCl (Apresoline) 25 mg Q4H PRN ORAL BP over 160 systolic 09/23/20 15:45 12/22/20 15:44 Lorazepam (Ativan 2mg/ml 1ml) 0.5 mg Q8HR PRN IV For Anxiety 09/23/20 20:00 09/30/20 19:59 09/26/20 08:21 Metoprolol Tartrate (Lopressor) 25 mg Q12HR ORAL 09/24/20 21:00 12/23/20 20:59 09/26/20 08:20 Morphine Sulfate (Morphine Sulfate) 1 mg Q4H PRN IVP For pain (6-10) 09/23/20 20:00 09/30/20 19:59 Nitroglycerin (Ntg) 1 patch Q24H TDERMAL 09/26/20 13:00 10/26/20 12:59 09/26/20 13:28 Ondansetron HCl (Zofran) 4 mg Q4H PRN IVP Nausea & Vomiting 09/23/20 20:45 10/23/20 20:44 Pantoprazole (Protonix) 40 mg EVERY 12 HOURS ORAL 09/25/20 21:00 10/25/20 20:59 09/26/20 08:20 Potassium Chloride (K-Dur) 40 meq TWICE A DAY ORAL 09/25/20 18:00 12/24/20 17:59 09/26/20 08:20 Quetiapine Fumarate (SEROqueL) 25 mg QHS ORAL 09/23/20 21:00 11/07/20 20:59 09/25/20 21:00 Sodium Chloride 500 ml @ 30 mls/hr ONCE ONCE IV 09/26/20 14:00 09/27/20 06:39 09/26/20 13:47 Vancomycin HCl (Vanco pharmacy to dose) 1 ea DAILY PRN MISC Per rx protocol 09/23/20 20:45 10/23/20 20:44 Vancomycin HCl 750 mg/Dextrose 275 ml @ 183.333 mls/hr Q12HR@0600,1800 IVPB 09/26/20 06:00 10/01/20 05:59 09/26/20 06:29 Assessment/Plan Assessment/Plan 1. Right lung pneumonia. - ormoxemic, therefore, does not require any supplemental oxygen - on broad-spectrum Abx 2. COVID-19 positivity. 3. Normoxemia. 4. Left breast mass. - Oncology recommendations noted - given covid19, conservative management 5. Anemia - heme onc following 6. Elevated troponin due to covid19 - per Dr. 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 The care for this patient was discussed with my supervising physicians Time spent for this case was approximately 31 minutes Yuri Moran Sep 26, 2020 15:18
--- NOTE | 2020-09-26 15:51 | Infectious Diseases Prog Note ---
Assessment/Plan Problems: (1) COVID-19 virus infection Assessment & Plan: with positive rapid molecular tests and suggestive lung infiltrations for possible COVID 19. Await PCR test to confirm and keep patient on enhanced and droplet isolation for now (2) Pneumonia due to COVID-19 virus Assessment & Plan: with bilateral infiltrations mainly in the lower lobes highly suspicious for COVID 19 infection, await PCR to confirm, keep patient on contact and droplet isolation, close monitor of O2 sat on room air. (3) Encephalopathy due to COVID-19 virus Assessment & Plan: continue supportive care and hydration as needed (4) GI bleed Assessment & Plan: with [facility] is following for possible endoscopy in the future, monitor H&H and transfuse as needed (5) Breast mass Assessment & Plan: with reactive retro-peritoneal lymph nodes highly suspicious for breast cancer, recommend ultrasound with biopsy and oncology evaluation (6) Anemia Assessment & Plan: due to the above transfuse if needed with close monitoring of H&H (7) Enterococcus UTI Assessment & Plan: already on vancomycin Subjective Constitutional: Reports: no symptoms HEENT: Reports: no symptoms Respiratory: Reports: no symptoms Breasts: Reports: no symptoms Cardiovascular: Reports: no symptoms Gastrointestinal/Abdominal: Reports: no symptoms Genitourinary: Reports: no symptoms Neurologic: Reports: no symptoms Psychiatric: Reports: no symptoms Skin: Reports: no symptoms Endocrine: Reports: no symptoms Hematologic: Reports: no symptoms Musculoskeletal: Reports: no symptoms Allergies: Coded Allergies: NO KNOWN ALLERGIES (Unverified Allergy, Unknown, 09/11/15) Objective Last 24 Hour Vital Signs Date Time Temp Pulse Resp B/P (MAP) Pulse Ox O2 Delivery O2 Flow Rate FiO2 09/26/20 13:28 130/72 09/26/20 12:00 97.7 60 20 130/72 (91) 96 09/26/20 12:00 61 09/26/20 09:00 Room Air 09/26/20 08:51 61 20 140/50 96 09/26/20 08:21 61 20 140/50 96 09/26/20 08:20 61 140/50 09/26/20 08:00 62 09/26/20 08:00 97.5 61 20 140/50 (80) 96 09/26/20 04:00 97.6 58 20 132/73 (92) 97 09/26/20 04:00 83 09/26/20 00:00 64 09/26/20 00:00 97.1 60 18 131/66 (87) 95 09/25/20 23:36 68 20 134/72 96 09/25/20 23:06 62 20 129/68 94 09/25/20 21:00 62 129/68 09/25/20 21:00 Room Air 09/25/20 20:00 62 09/25/20 20:00 96.0 59 18 129/68 (88) 94 09/25/20 16:00 97.5 55 20 136/67 (90) 94 09/25/20 16:00 58 Height (Feet): 5 Height (Inches): 3.00 Weight (Pounds): 120 General Appearance: WD/WN, no acute distress HEENT: normocephalic, atraumatic, anicteric, mucous membranes moist, PERRL Respiratory/Chest: chest wall non-tender, lungs clear, normal breath sounds, no respiratory distress, no accessory muscle use Cardiovascular: normal peripheral pulses, normal rate, regular rhythm, no gallop/murmur, no JVD Abdomen: normal bowel sounds, soft, non tender, no organomegaly, non distended, no mass, no scars Genitourinary: normal external genitalia Extremities: no cyanosis, no clubbing Skin: no rash, no lesions, no ulcers Neurologic/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, alert, responsive Lymphatic: no neck adenopathy, no groin adenopathy Musculoskeletal: normal muscle bulk, no effusion Laboratory Tests Test 09/26/20 10:00 White Blood Count 5.8 K/UL (4.8-10.8) Red Blood Count 4.29 M/UL (4.20-5.40) Hemoglobin 12.4 G/DL (12.0-16.0) Hematocrit 37.9 % (37.0-47.0) Mean Corpuscular Volume 88 FL (80-99) Mean Corpuscular Hemoglobin 28.9 PG (27.0-31.0) Mean Corpuscular Hemoglobin Concent 32.7 G/DL (32.0-36.0) Red Cell Distribution Width 13.1 % (11.6-14.8) Platelet Count 273 K/UL (150-450) Mean Platelet Volume 7.2 FL (6.5-10.1) Neutrophils (%) (Auto) 62.7 % (45.0-75.0) Lymphocytes (%) (Auto) 14.9 % (20.0-45.0) L Monocytes (%) (Auto) 11.3 % (1.0-10.0) H Eosinophils (%) (Auto) 10.3 % (0.0-3.0) H Basophils (%) (Auto) 0.7 % (0.0-2.0) Sodium Level 133 MMOL/L (136-145) L Potassium Level 3.9 MMOL/L (3.5-5.1) Chloride Level 101 MMOL/L (98-107) Carbon Dioxide Level 26 MMOL/L (21-32) Anion Gap 7 mmol/L (5-15) Blood Urea Nitrogen 10 mg/dL (7-18) Creatinine 1.0 MG/DL (0.55-1.30) Estimat Glomerular Filtration Rate 52.8 mL/min (>60) Glucose Level 103 MG/DL (74-106) Calcium Level 8.8 MG/DL (8.5-10.1) Current Medications Medications (Trade) Dose Ordered Sig/Rosio Route PRN Reason Start Time Stop Time Status Last Admin Dose Admin Acetaminophen (Tylenol) 650 mg Q8HR PRN ORAL Pain Scale (3-5) 09/23/20 20:00 10/23/20 19:59 Aspirin (ASA) 81 mg DAILY ORAL 09/24/20 12:15 11/08/20 12:14 09/26/20 08:20 Cefepime HCl 2 gm/ Dextrose 55 ml @ 110 mls/hr Q24H IVPB 09/25/20 01:00 10/02/20 00:59 09/26/20 01:00 Diphenhydramine HCl (Benadryl) 25 mg Q6H PRN IVP Itching 09/25/20 11:45 10/25/20 11:44 09/25/20 12:29 Docusate Sodium (Colace) 100 mg TWICE A DAY ORAL 09/26/20 09:00 10/26/20 08:59 09/26/20 09:01 Furosemide (Lasix) 20 mg EVERY 8 HOURS IV 09/25/20 14:00 10/25/20 13:59 09/26/20 13:28 Hydralazine HCl (Apresoline) 25 mg Q4H PRN ORAL BP over 160 systolic 09/23/20 15:45 12/22/20 15:44 Lorazepam (Ativan 2mg/ml 1ml) 0.5 mg Q8HR PRN IV For Anxiety 09/23/20 20:00 09/30/20 19:59 09/26/20 08:21 Metoprolol Tartrate (Lopressor) 25 mg Q12HR ORAL 09/24/20 21:00 12/23/20 20:59 09/26/20 08:20 Morphine Sulfate (Morphine Sulfate) 1 mg Q4H PRN IVP For pain (6-10) 09/23/20 20:00 09/30/20 19:59 Nitroglycerin (Ntg) 1 patch Q24H TDERMAL 09/26/20 13:00 10/26/20 12:59 09/26/20 13:28 Ondansetron HCl (Zofran) 4 mg Q4H PRN IVP Nausea & Vomiting 09/23/20 20:45 10/23/20 20:44 Pantoprazole (Protonix) 40 mg EVERY 12 HOURS ORAL 09/25/20 21:00 10/25/20 20:59 09/26/20 08:20 Potassium Chloride (K-Dur) 40 meq TWICE A DAY ORAL 09/25/20 18:00 12/24/20 17:59 09/26/20 08:20 Quetiapine Fumarate (SEROqueL) 25 mg QHS ORAL 09/23/20 21:00 11/07/20 20:59 09/25/20 21:00 Sodium Chloride 500 ml @ 30 mls/hr ONCE ONCE IV 09/26/20 14:00 09/27/20 06:39 09/26/20 13:47 Vancomycin HCl (Vanco pharmacy to dose) 1 ea DAILY PRN MISC Per rx protocol 09/23/20 20:45 10/23/20 20:44 Vancomycin HCl 750 mg/Dextrose 275 ml @ 183.333 mls/hr Q12HR@0600,1800 IVPB 09/26/20 06:00 10/01/20 05:59 09/26/20 06:29 Germain Wadsworth M.D. Sep 26, 2020 15:51
[2020-09-26 16:00] VITALS: BP 138/68
--- NOTE | 2020-09-26 19:13 | NUR ---
NURSE HAND-OFF REPORT: Important Events on Shift:N/A Patient Status: Stable Diet: Cardiac Pending Orders: N/A Pending Results/Labs:Morning labs Pending MD notification:N/A Latest Vital Signs: Temperature 97.1 , Pulse 62 , B/P 138 /68 , Respiratory Rate 18 , O2 SAT 98 , Room Air, O2 Flow Rate . Vital Sign Comment: Stable EKG Rhythm: Sinus Rhythm Rhythm change?: N MD Notified?: - MD Response: Latest Parker Fall Score: 20 Fall Risk: Low Risk Safety Measures: Call light Within Reach, Bed Alarm Zone 1, Side Rails Side Rails x2, Bed position Low and Locked. Fall Precautions: Yellow Socks Yellow Gown Door Sign Patient Fall Education Report given to Nidhi/RN.
--- NOTE | 2020-09-26 19:20 | NUR ---
Pt received from TEOFIL[facility] Tate. Pt is bed. Pt is A/Ox3 and on bedrest with bathroom privileges. Cardiac monitoring in place. No resp distress noted. Pt is breathing unlabored on RA and asymptomatic. IV on Left hand running Nacl 3%, no s/s infiltration noted. Bed is locked and in lowest position with call light within reach. Bed alarm on. Will continue to monitor.
[2020-09-26 20:00] VITALS: BP 128/66
--- NOTE | 2020-09-26 23:56 | Psychiatric Progress Note ---
Psychiatry Progress Note Psychiatry Progress Note Medications Current Medications Medications (Trade) Dose Ordered Sig/Rosio Route PRN Reason Start Time Stop Time Status Last Admin Dose Admin Acetaminophen (Tylenol) 650 mg Q8HR PRN ORAL Pain Scale (3-5) 09/23/20 20:00 10/23/20 19:59 Aspirin (ASA) 81 mg DAILY ORAL 09/24/20 12:15 11/08/20 12:14 09/26/20 08:20 Cefepime HCl 2 gm/ Dextrose 55 ml @ 110 mls/hr Q24H IVPB 09/25/20 01:00 10/02/20 00:59 09/26/20 01:00 Diphenhydramine HCl (Benadryl) 25 mg Q6H PRN IVP Itching 09/25/20 11:45 10/25/20 11:44 09/25/20 12:29 Docusate Sodium (Colace) 100 mg TWICE A DAY ORAL 09/26/20 09:00 10/26/20 08:59 09/26/20 17:52 Furosemide (Lasix) 20 mg EVERY 8 HOURS IV 09/25/20 14:00 10/25/20 13:59 09/26/20 21:19 Hydralazine HCl (Apresoline) 25 mg Q4H PRN ORAL BP over 160 systolic 09/23/20 15:45 12/22/20 15:44 Lorazepam (Ativan 2mg/ml 1ml) 0.5 mg Q8HR PRN IV For Anxiety 09/23/20 20:00 09/30/20 19:59 09/26/20 08:21 Metoprolol Tartrate (Lopressor) 25 mg Q12HR ORAL 09/24/20 21:00 12/23/20 20:59 09/26/20 21:20 Morphine Sulfate (Morphine Sulfate) 1 mg Q4H PRN IVP For pain (6-10) 09/23/20 20:00 09/30/20 19:59 Nitroglycerin (Ntg) 1 patch Q24H TDERMAL 09/26/20 13:00 10/26/20 12:59 09/26/20 13:28 Ondansetron HCl (Zofran) 4 mg Q4H PRN IVP Nausea & Vomiting 09/23/20 20:45 10/23/20 20:44 09/26/20 21:20 Pantoprazole (Protonix) 40 mg EVERY 12 HOURS ORAL 09/25/20 21:00 10/25/20 20:59 09/26/20 21:19 Potassium Chloride (K-Dur) 40 meq TWICE A DAY ORAL 09/25/20 18:00 12/24/20 17:59 09/26/20 17:52 Quetiapine Fumarate (SEROqueL) 25 mg QHS ORAL 09/23/20 21:00 11/07/20 20:59 09/26/20 21:19 Sodium Chloride 500 ml @ 30 mls/hr ONCE ONCE IV 09/26/20 14:00 09/27/20 06:39 09/26/20 13:47 Vancomycin HCl (Vanco pharmacy to dose) 1 ea DAILY PRN MISC Per rx protocol 09/23/20 20:45 10/23/20 20:44 Vancomycin HCl 750 mg/Dextrose 275 ml @ 183.333 mls/hr Q12HR@0600,1800 IVPB 09/26/20 06:00 10/01/20 05:59 09/26/20 17:52 Neurological/Psychiatric: Denies: no symptoms, anxiety, depressed, emotional problems, headache, numbness, paresthesia, pre-existing deficit, seizure, tingling, tremors, weakness, other Allergies: Coded Allergies: NO KNOWN ALLERGIES (Unverified Allergy, Unknown, 09/11/15) Objective Data Height (Feet): 5 Height (Inches): 3.00 Weight (Pounds): 120 General Appearance: no apparent distress, lethargic Additional Comments: MENTAL STATUS EXAMINATION: The patient is alert and oriented times self, place, and situation. Mood is depressed. Affect is blunted. Thought process is concrete. Thought content, no suicidal or homicidal ideation. Cognition is impaired. Insight and judgment impaired. Assessment/Plan Assessment/Plan: ASSESSMENT: [place] I Cognitive impairment. Major depressive disorder [place] II Deferred. [place] III As above. [place] IV Low. [place] V 20. PLAN: 1. The patient was started on Seroquel 25 at bedtime due to anxiety sundowning at nighttime. 2. Ativan as needed was started by the primary physician. 3. Discussed with the primary physician. Roverto Salomon MD Sep 26, 2020 23:56
[2020-09-27] VITALS: BP 120/60
[2020-09-27] MEDS: Cefepime HCl 2 GM in D5W 55 ML IVPB SCH (01:27)
[2020-09-27 04:00] VITALS: BP 116/61
[2020-09-27] MEDS: Vancomycin 750mg/D5W 275ml IVPB SCH ×4 (05:22→18:15)
--- NOTE | 2020-09-27 06:21 | Hematology/Onc Progress Note ---
Assessment/Plan Assessment/Plan Assessment and Recs # Breast mass, left sided [id number] new -- requires further evaluation --> mammogram as needed outpatient as unable to do here --> will need outpatient biopsy likely as well --> may need resection --> given now covid19, conservative management # Anemia due to underlying GI bleed --> anemia panel reviewed --> transfuse as needed prn --> hgb 11-->12 # Elevated troponin due to covid19 --> per Dr. Mullen, conservative mangement # Hyponatremia --> ivfs # COVID-19 -> steriods, abx, remdesivir # Pneumonia --> abx # Dvt ppx scds Appreciate consultation and luanne Rn Subjective HEENT: Denies: no symptoms, eye pain, blurred vision, tearing, double vision, ear pain, ear discharge, nose pain, nose congestion, throat pain, throat swelling, mouth pain, mouth swelling, other Cardiovascular: Denies: no symptoms, chest pain, edema, irregular heart rate, lightheadedness, palpitations, syncope, other Respiratory: Denies: no symptoms, cough, shortness of breath, SOB with excertion, SOB at rest, sputum, wheezing, other Gastrointestinal/Abdominal: Denies: no symptoms, abdomen distended, abdominal pain, black stools, tarry stools, blood in stool, constipated, diarrhea, difficulty swallowing, nausea, poor appetite, poor fluid intake, rectal bleeding, vomiting, other Genitourinary: Denies: no symptoms, burning, discharge, frequency, flank pain, hematuria, incontinence, pain, urgency, other Neurologic/Psychiatric: Denies: no symptoms, anxiety, depressed, emotional problems, headache, numbness, paresthesia, pre-existing deficit, seizure, tingling, tremors, weakness, other Endocrine: Denies: no symptoms, excessive sweating, flushing, intolerance to cold, intolerance to heat, increased hunger, increased thirst, increased urine, unexplained weight gain, unexplained weight loss, other Hematologic/Lymphatic: Denies: no symptoms, anemia, easy bleeding, easy bruising, adenopathy, other Allergies: Coded Allergies: NO KNOWN ALLERGIES (Unverified Allergy, Unknown, 09/11/15) Subjective 09/26 no major events, no fc, on abx, vanc/cefepime 09/27 meds reviewed, no major changes, on abx Objective Objective Current Medications Medications (Trade) Dose Ordered Sig/Rosio Route PRN Reason Start Time Stop Time Status Last Admin Dose Admin Acetaminophen (Tylenol) 650 mg Q8HR PRN ORAL Pain Scale (3-5) 09/23/20 20:00 10/23/20 19:59 Aspirin (ASA) 81 mg DAILY ORAL 09/24/20 12:15 11/08/20 12:14 09/26/20 08:20 Cefepime HCl 2 gm/ Dextrose 55 ml @ 110 mls/hr Q24H IVPB 09/25/20 01:00 10/02/20 00:59 09/27/20 01:27 Diphenhydramine HCl (Benadryl) 25 mg Q6H PRN IVP Itching 09/25/20 11:45 10/25/20 11:44 09/25/20 12:29 Docusate Sodium (Colace) 100 mg TWICE A DAY ORAL 09/26/20 09:00 10/26/20 08:59 09/26/20 17:52 Furosemide (Lasix) 20 mg EVERY 8 HOURS IV 09/25/20 14:00 10/25/20 13:59 09/27/20 05:24 Hydralazine HCl (Apresoline) 25 mg Q4H PRN ORAL BP over 160 systolic 09/23/20 15:45 12/22/20 15:44 Lorazepam (Ativan 2mg/ml 1ml) 0.5 mg Q8HR PRN IV For Anxiety 09/23/20 20:00 09/30/20 19:59 09/26/20 08:21 Metoprolol Tartrate (Lopressor) 25 mg Q12HR ORAL 09/24/20 21:00 12/23/20 20:59 09/26/20 21:20 Morphine Sulfate (Morphine Sulfate) 1 mg Q4H PRN IVP For pain (6-10) 09/23/20 20:00 09/30/20 19:59 Nitroglycerin (Ntg) 1 patch Q24H TDERMAL 09/26/20 13:00 10/26/20 12:59 09/26/20 13:28 Ondansetron HCl (Zofran) 4 mg Q4H PRN IVP Nausea & Vomiting 09/23/20 20:45 10/23/20 20:44 09/26/20 21:20 Pantoprazole (Protonix) 40 mg EVERY 12 HOURS ORAL 09/25/20 21:00 10/25/20 20:59 09/26/20 21:19 Potassium Chloride (K-Dur) 40 meq TWICE A DAY ORAL 09/25/20 18:00 12/24/20 17:59 09/26/20 17:52 Quetiapine Fumarate (SEROqueL) 25 mg QHS ORAL 09/23/20 21:00 11/07/20 20:59 09/26/20 21:19 Sodium Chloride 500 ml @ 30 mls/hr ONCE ONCE IV 09/26/20 14:00 09/27/20 06:39 09/26/20 13:47 [facility] 1 ea DAILY PRN MISC Per rx protocol 09/23/20 20:45 10/23/20 20:44 Vancomycin HCl 750 mg/Dextrose 275 ml @ 183.333 mls/hr Q12HR@0600,1800 IVPB 09/26/20 06:00 10/01/20 05:59 09/27/20 05:22 Last 24 Hour Vital Signs Date Time Temp Pulse Resp B/P (MAP) Pulse Ox O2 Delivery O2 Flow Rate FiO2 09/27/20 04:00 62 09/27/20 04:00 97.4 60 16 116/61 (79) 95 09/27/20 00:00 97.5 68 18 120/60 (80) 95 09/27/20 00:00 61 09/26/20 21:20 80 132/70 09/26/20 21:00 Room Air 09/26/20 20:00 97.7 64 20 128/66 (86) 95 09/26/20 20:00 60 09/26/20 16:00 60 09/26/20 16:00 97.1 62 18 138/68 (91) 98 09/26/20 13:28 130/72 09/26/20 12:00 97.7 60 20 130/72 (91) 96 09/26/20 12:00 61 09/26/20 09:00 Room Air 09/26/20 08:51 61 20 140/50 96 09/26/20 08:21 61 20 140/50 96 09/26/20 08:20 61 140/50 09/26/20 08:00 62 09/26/20 08:00 97.5 61 20 140/50 (80) 96 09/26/20 04:00 97.6 58 20 132/73 (92) 97 09/26/20 04:00 83 09/26/20 00:00 64 09/26/20 00:00 97.1 60 18 131/66 (87) 95 09/25/20 23:36 68 20 134/72 96 09/25/20 23:06 62 20 129/68 94 09/25/20 21:00 62 129/68 09/25/20 21:00 Room Air 09/25/20 20:00 62 09/25/20 20:00 96.0 59 18 129/68 (88) 94 09/25/20 16:00 97.5 55 20 136/67 (90) 94 09/25/20 16:00 58 09/25/20 12:00 84 09/25/20 12:00 97.6 63 20 159/86 (110) 96 09/25/20 09:28 61 159/75 09/25/20 09:00 Room Air 09/25/20 08:00 97.7 61 20 159/75 (103) 95 09/25/20 08:00 59 Intake and Output 09/26/20 09/27/20 19:00 07:00 Intake Total 500 ml Balance 500 ml Intake Oral 500 ml # Voids 4 Labs Test 09/24/20 07:40 09/24/20 16:15 09/25/20 06:05 09/25/20 12:30 White Blood Count 4.6 K/UL (4.8-10.8) 4.8 K/UL (4.8-10.8) Red Blood Count 3.66 M/UL (4.20-5.40) 3.63 M/UL (4.20-5.40) Hemoglobin 11.2 G/DL (12.0-16.0) 11.0 G/DL (12.0-16.0) Hematocrit 33.1 % (37.0-47.0) 33.9 % (37.0-47.0) Mean Corpuscular Volume 90 FL (80-99) 94 FL (80-99) Mean Corpuscular Hemoglobin 30.5 PG (27.0-31.0) 30.3 PG (27.0-31.0) Mean Corpuscular Hemoglobin Concent 33.7 G/DL (32.0-36.0) 32.4 G/DL (32.0-36.0) Red Cell Distribution Width 13.3 % (11.6-14.8) 13.1 % (11.6-14.8) Platelet Count 274 K/UL (150-450) 252 K/UL (150-450) Mean Platelet Volume 6.9 FL (6.5-10.1) 6.8 FL (6.5-10.1) Neutrophils (%) (Auto) 62.3 % (45.0-75.0) 60.3 % (45.0-75.0) Lymphocytes (%) (Auto) 15.5 % (20.0-45.0) 17.1 % (20.0-45.0) Monocytes (%) (Auto) 10.3 % (1.0-10.0) 8.9 % (1.0-10.0) Eosinophils (%) (Auto) 10.8 % (0.0-3.0) 12.6 % (0.0-3.0) Basophils (%) (Auto) 1.1 % (0.0-2.0) 1.1 % (0.0-2.0) Sodium Level 134 MMOL/L (136-145) 131 MMOL/L (136-145) Potassium Level 3.4 MMOL/L (3.5-5.1) 3.8 MMOL/L (3.5-5.1) Chloride Level 101 MMOL/L (98-107) 101 MMOL/L (98-107) Carbon Dioxide Level 25 MMOL/L (21-32) 24 MMOL/L (21-32) Anion Gap 8 mmol/L (5-15) 6 mmol/L (5-15) Blood Urea Nitrogen 5 mg/dL (7-18) 6 mg/dL (7-18) Creatinine 0.8 MG/DL (0.55-1.30) 0.8 MG/DL (0.55-1.30) Estimat Glomerular Filtration Rate > 60 mL/min (>60) > 60 mL/min (>60) Glucose Level 119 MG/DL (74-106) 119 MG/DL (74-106) Osmolality 276 mOsm/kg (297-317) Uric Acid 3.9 MG/DL (2.6-7.2) Calcium Level 8.1 MG/DL (8.5-10.1) 8.1 MG/DL (8.5-10.1) Phosphorus Level 3.3 MG/DL (2.5-4.9) 3.3 MG/DL (2.5-4.9) Magnesium Level 1.8 MG/DL (1.8-2.4) 1.8 MG/DL (1.8-2.4) Iron Level 42 ug/dL (50-175) Total Iron Binding Capacity 179 ug/dL (250-450) Percent Iron Saturation 23 % (15-50) Unsaturated Iron Binding 137 ug/dL (112-346) Ferritin 179 NG/ML (8-388) Total Bilirubin 0.4 MG/DL (0.2-1.0) 0.4 MG/DL (0.2-1.0) Gamma Glutamyl Transpeptidase 17 U/L (5-85) Aspartate Amino Transf (AST/SGOT) 20 U/L (15-37) 19 U/L (15-37) Alanine Aminotransferase (ALT/SGPT) 18 U/L (12-78) 17 U/L (12-78) Alkaline Phosphatase 75 U/L (46-116) 75 U/L (46-116) Lactate Dehydrogenase 164 U/L (81-234) Troponin I 0.195 ng/mL (0.000-0.056) 0.121 ng/mL (0.000-0.056) C-Reactive Protein, Quantitative < 0.4 mg/dL (0.00-0.90) Pro-B-Type Natriuretic Peptide 3349 pg/mL (0-125) Total Protein 6.7 G/DL (6.4-8.2) 6.5 G/DL (6.4-8.2) Albumin 2.5 G/DL (3.4-5.0) 2.4 G/DL (3.4-5.0) Globulin 4.2 g/dL 4.1 g/dL Albumin/Globulin Ratio 0.6 (1.0-2.7) 0.6 (1.0-2.7) Triglycerides Level 93 MG/DL (30-150) Cholesterol Level 176 MG/DL (< 200) LDL Cholesterol 114 mg/dL (<100) HDL Cholesterol 39 MG/DL (40-60) Cholesterol/HDL Ratio 4.5 (3.3-4.4) Carcinoembryonic Antigen 4.2 ng/mL (0.0-4.7) CA 19-9 Antigen 23 U/mL (0-35) CA 125 Antigen 70.4 U/mL (0.0-38.1) Vitamin B12 Level 279 PG/ML (193-986) Folate 18.3 NG/ML (8.6-58.9) Thyroid Stimulating Hormone (TSH) 1.996 uiU/mL (0.358-3.740) D-Dimer 3.91 mg/L FEU (0.00-0.49) Vancomycin Level Trough 7.5 ug/mL (5.0-12.0) Test 09/26/20 10:00 White Blood Count 5.8 K/UL (4.8-10.8) Red Blood Count 4.29 M/UL (4.20-5.40) Hemoglobin 12.4 G/DL (12.0-16.0) Hematocrit 37.9 % (37.0-47.0) Mean Corpuscular Volume 88 FL (80-99) Mean Corpuscular Hemoglobin 28.9 PG (27.0-31.0) Mean Corpuscular Hemoglobin Concent 32.7 G/DL (32.0-36.0) Red Cell Distribution Width 13.1 % (11.6-14.8) Platelet Count 273 K/UL (150-450) Mean Platelet Volume 7.2 FL (6.5-10.1) Neutrophils (%) (Auto) 62.7 % (45.0-75.0) Lymphocytes (%) (Auto) 14.9 % (20.0-45.0) Monocytes (%) (Auto) 11.3 % (1.0-10.0) Eosinophils (%) (Auto) 10.3 % (0.0-3.0) Basophils (%) (Auto) 0.7 % (0.0-2.0) Sodium Level 133 MMOL/L (136-145) Potassium Level 3.9 MMOL/L (3.5-5.1) Chloride Level 101 MMOL/L (98-107) Carbon Dioxide Level 26 MMOL/L (21-32) Anion Gap 7 mmol/L (5-15) Blood Urea Nitrogen 10 mg/dL (7-18) Creatinine 1.0 MG/DL (0.55-1.30) Estimat Glomerular Filtration Rate 52.8 mL/min (>60) Glucose Level 103 MG/DL (74-106) Calcium Level 8.8 MG/DL (8.5-10.1) Height (Feet): 5 Height (Inches): 3.00 Weight (Pounds): 120 Objective Physical Exam Sp02 EP: reviewed, normal General: no apparent distress, alert, GCS 15, non-toxic Head: normocephalic, atraumatic HEENT: hearing grossly normal, normal pharynx, no angioedema, normal voice Neck: full range of motion, supple/symm/no masses Respiratory: chest non-tender, rhonchi, speaking full sentences Cardiovascular: regular rate, rhythm, no edema Gi: soft, Epigastric tenderness to palpation Genitourinary: no CVA tenderness Musculoskeletal: normal range of motion Neurologic: vat overhauler III-XII nml as tested Skin: pallor Lymphatic: no adenopathy Louie Mtz MD Sep 27, 2020 06:21
[2020-09-27 06:37] LABS: BASOPHILS % (AUTO) 0.7 % (0.0-2.0); EOSINOPHILS % (AUTO) 9.1 % (0.0-3.0); HEMATOCRIT 36.6 % (37.0-47.0); HEMOGLOBIN 12.1 G/DL (12.0-16.0); LYMPHOCYTES % (AUTO) 11.8 % (20.0-45.0); MEAN CORPUSCULAR VOLUME 90 FL (80-99); MONOCYTES % (AUTO) 9.7 % (1.0-10.0); NEUTROPHILS % (AUTO) 68.7 % (45.0-75.0); PLATELET COUNT 279 K/UL (150-450); RED BLOOD COUNT 4.06 M/UL (4.20-5.40); RED CELL DISTRIBUTION WIDTH 13.5 % (11.6-14.8); WHITE BLOOD COUNT 5.9 K/UL (4.8-10.8)
[2020-09-27 07:16] LABS: ALBUMIN 2.8 G/DL (3.4-5.0); ALBUMIN/GLOBULIN RATIO 0.6 (1.0-2.7); BILIRUBIN,TOTAL 0.4 MG/DL (0.2-1.0); CALCIUM 9.1 MG/DL (8.5-10.1); CREATININE 1.3 MG/DL (0.55-1.30); PHOSPHORUS 3.2 MG/DL (2.5-4.9); POTASSIUM 4.4 MMOL/L (3.5-5.1)
--- NOTE | 2020-09-27 07:20 | NUR ---
NURSE HAND-OFF REPORT: Important Events on Shift:[n/a] Patient Status: [stable/ full code] Diet: [] Pending Orders: [] Pending Results/Labs:[] Pending MD notification:[] Latest Vital Signs: Temperature 97.4 , Pulse 62 , B/P 116 /61 , Respiratory Rate 16 , O2 SAT 95 , Room Air, O2 Flow Rate . Vital Sign Comment: [] EKG Rhythm: Sinus Rhythm Rhythm change?: N MD Notified?: - MD Response: Latest Parker Fall Score: 20 Fall Risk: Low Risk Safety Measures: Call light Within Reach, Bed Alarm Zone 1, Side Rails Side Rails x2, Bed position Low and Locked. Fall Precautions: Yellow Socks Yellow Gown Door Sign Patient Fall Education Report given to [TEOFILO Iraheta].
--- NOTE | 2020-09-27 07:42 | NUR ---
NURSE NOTES: Patient received from TEOFILO Terrell. Patient seen in bed in low fowlers position asleep with no acute signs of distress. The patient has a R 22G FA running 3% saline at 30cc/her with her IV that is patent clean and intact.The patient is on RA with O2 sat within normal limits.The Patient bed is in lowest position, locked, side rails x3, bed alarm within reach and bed alarm in zone 1.
[2020-09-27 08:00] VITALS: BP 124/61
[2020-09-27] MEDS: Docusate 100mg cap ORAL SCH ×2 (08:28→18:15)
[2020-09-27] MEDS: Aspirin Baby 81mg ORAL SCH (08:28)
--- NOTE | 2020-09-27 10:05 | Pulmonology Progress Note ---
Subjective ROS Limited/Unobtainable: No Interval Events: none major reported per nursing Constitutional: Reports: no symptoms Gastrointestinal/Abdominal: Reports: no symptoms Psychiatric: Reports: no symptoms Skin: Reports: no symptoms Musculoskeletal: Reports: no symptoms Allergies: Coded Allergies: NO KNOWN ALLERGIES (Unverified Allergy, Unknown, 09/11/15) Objective Last 24 Hour Vital Signs Date Time Temp Pulse Resp B/P (MAP) Pulse Ox O2 Delivery O2 Flow Rate FiO2 09/27/20 08:29 80 124/61 09/27/20 04:00 62 09/27/20 04:00 97.4 60 16 116/61 (79) 95 09/27/20 00:00 97.5 68 18 120/60 (80) 95 09/27/20 00:00 61 09/26/20 21:20 80 132/70 09/26/20 21:00 Room Air 09/26/20 20:00 97.7 64 20 128/66 (86) 95 09/26/20 20:00 60 09/26/20 16:00 60 09/26/20 16:00 97.1 62 18 138/68 (91) 98 09/26/20 13:28 130/72 09/26/20 12:00 97.7 60 20 130/72 (91) 96 09/26/20 12:00 61 Intake and Output 09/26/20 09/27/20 19:00 07:00 Intake Total 500 ml Balance 500 ml Intake Oral 500 ml # Voids 4 2 Objective 09/27 remains on RA 09/26 no change respiratory-larson 09/25 saturating at 95% on RA General Appearance: WD/WN HEENT: normocephalic Respiratory: lungs clear Cardiovascular: normal rate, regular rhythm Abdomen: soft, non tender Laboratory Tests 09/27/20 04:30: White Blood Count 5.9, Red Blood Count 4.06L, Hemoglobin 12.1, Hematocrit 36.6L, Mean Corpuscular Volume 90, Mean Corpuscular Hemoglobin 29.7, Mean Corpuscular Hemoglobin Concent 33.0, Red Cell Distribution Width 13.5, Platelet Count 279, Mean Platelet Volume 7.5, Neutrophils (%) (Auto) 68.7, Lymphocytes (%) (Auto) 11.8L, Monocytes (%) (Auto) 9.7, Eosinophils (%) (Auto) 9.1H, Basophils (%) (Auto) 0.7, Sodium Level 138, Potassium Level 4.4, Chloride Level 106, Carbon Dioxide Level 25, Anion Gap 7, Blood Urea Nitrogen 14, Creatinine 1.3, Estimat Glomerular Filtration Rate 39.0, Glucose Level 89, Osmolality 290L, Uric Acid 5.4, Calcium Level 9.1, Phosphorus Level 3.2, Magnesium Level 1.8, Total Bilirubin 0.4, Aspartate Amino Transf (AST/SGOT) 19, Alanine Aminotransferase (ALT/SGPT) 18, Alkaline Phosphatase 81, Total Protein 7.3, Albumin 2.8L, Globulin 4.5, Albumin/Globulin Ratio 0.6L Current Medications Medications (Trade) Dose Ordered Sig/Rosio Route PRN Reason Start Time Stop Time Status Last Admin Dose Admin Acetaminophen (Tylenol) 650 mg Q8HR PRN ORAL Pain Scale (3-5) 09/23/20 20:00 10/23/20 19:59 Aspirin (ASA) 81 mg DAILY ORAL 09/24/20 12:15 11/08/20 12:14 09/27/20 08:28 Cefepime HCl 2 gm/ Dextrose 55 ml @ 110 mls/hr Q24H IVPB 09/25/20 01:00 10/02/20 00:59 09/27/20 01:27 Diphenhydramine HCl (Benadryl) 25 mg Q6H PRN IVP Itching 09/25/20 11:45 10/25/20 11:44 09/25/20 12:29 Docusate Sodium (Colace) 100 mg TWICE A DAY ORAL 09/26/20 09:00 10/26/20 08:59 09/27/20 08:28 Furosemide (Lasix) 20 mg EVERY 8 HOURS IV 09/25/20 14:00 10/25/20 13:59 09/27/20 05:24 Hydralazine HCl (Apresoline) 25 mg Q4H PRN ORAL BP over 160 systolic 09/23/20 15:45 12/22/20 15:44 Lorazepam (Ativan 2mg/ml 1ml) 0.5 mg Q8HR PRN IV For Anxiety 09/23/20 20:00 09/30/20 19:59 09/26/20 08:21 Metoprolol Tartrate (Lopressor) 25 mg Q12HR ORAL 09/24/20 21:00 12/23/20 20:59 09/27/20 08:29 Morphine Sulfate (Morphine Sulfate) 1 mg Q4H PRN IVP For pain (6-10) 09/23/20 20:00 09/30/20 19:59 Nitroglycerin (Ntg) 1 patch Q24H TDERMAL 09/26/20 13:00 10/26/20 12:59 09/26/20 13:28 Ondansetron HCl (Zofran) 4 mg Q4H PRN IVP Nausea & Vomiting 09/23/20 20:45 10/23/20 20:44 09/26/20 21:20 Pantoprazole (Protonix) 40 mg EVERY 12 HOURS ORAL 09/25/20 21:00 10/25/20 20:59 09/27/20 08:28 Potassium Chloride (K-Dur) 40 meq TWICE A DAY ORAL 09/25/20 18:00 12/24/20 17:59 09/27/20 08:29 Quetiapine Fumarate (SEROqueL) 25 mg QHS ORAL 09/23/20 21:00 11/07/20 20:59 09/26/20 21:19 Vancomycin HCl ([facility] pharmacy to dose) 1 ea DAILY PRN MISC Per rx protocol 09/23/20 20:45 10/23/20 20:44 Vancomycin HCl 750 mg/Dextrose 275 ml @ 183.333 mls/hr Q12HR@0600,1800 IVPB 09/26/20 06:00 10/01/20 05:59 09/27/20 05:22 Assessment/Plan Assessment/Plan 1. Right lung pneumonia. - normoxemic, therefore, does not require any supplemental oxygen - on broad-spectrum Abx 2. COVID-19 positivity. 3. Normoxemia. 4. Left breast mass. - Oncology recommendations noted - given covid19, conservative management 5. Anemia - heme onc and GI following 6. Elevated troponin due to covid19 - per Dr. Mullen, conservative mangement We will follow as education nurse. The care for this patient was discussed with my supervising physicians Time spent for this case was approximately 31 minutes Yuri Moran Sep 27, 2020 10:05
--- NOTE | 2020-09-27 11:54 | General Progress Note ---
Subjective ROS Limited/Unobtainable: No Allergies: Coded Allergies: NO KNOWN ALLERGIES (Unverified Allergy, Unknown, 09/11/15) Objective Last 24 Hour Vital Signs Date Time Temp Pulse Resp B/P (MAP) Pulse Ox O2 Delivery O2 Flow Rate FiO2 09/27/20 09:00 Room Air 09/27/20 08:29 80 124/61 09/27/20 08:00 97.6 84 19 124/61 (82) 98 09/27/20 08:00 59 09/27/20 04:00 62 09/27/20 04:00 97.4 60 16 116/61 (79) 95 09/27/20 00:00 97.5 68 18 120/60 (80) 95 09/27/20 00:00 61 09/26/20 21:20 80 132/70 09/26/20 21:00 Room Air 09/26/20 20:00 97.7 64 20 128/66 (86) 95 09/26/20 20:00 60 09/26/20 16:00 60 09/26/20 16:00 97.1 62 18 138/68 (91) 98 09/26/20 13:28 130/72 09/26/20 12:00 97.7 60 20 130/72 (91) 96 09/26/20 12:00 61 Intake and Output 09/26/20 09/27/20 19:00 07:00 Intake Total 500 ml Balance 500 ml Intake Oral 500 ml # Voids 4 2 Laboratory Tests 09/27/20 04:30: White Blood Count 5.9, Red Blood Count 4.06L, Hemoglobin 12.1, Hematocrit 36.6L, Mean Corpuscular Volume 90, Mean Corpuscular Hemoglobin 29.7, Mean Corpuscular Hemoglobin Concent 33.0, Red Cell Distribution Width 13.5, Platelet Count 279, Mean Platelet Volume 7.5, Neutrophils (%) (Auto) 68.7, Lymphocytes (%) (Auto) 11.8L, Monocytes (%) (Auto) 9.7, Eosinophils (%) (Auto) 9.1H, Basophils (%) (Auto) 0.7, Sodium Level 138, Potassium Level 4.4, Chloride Level 106, Carbon Dioxide Level 25, Anion Gap 7, Blood Urea Nitrogen 14, Creatinine 1.3, Estimat Glomerular Filtration Rate 39.0, Glucose Level 89, Osmolality 290L, Uric Acid 5.4, Calcium Level 9.1, Phosphorus Level 3.2, Magnesium Level 1.8, Total Bilirubin 0.4, Aspartate Amino Transf (AST/SGOT) 19, Alanine Aminotransferase (ALT/SGPT) 18, Alkaline Phosphatase 81, Total Protein 7.3, Albumin 2.8L, Globulin 4.5, Albumin/Globulin Ratio 0.6L Height (Feet): 5 Height (Inches): 3.00 Weight (Pounds): 120 General Appearance: no apparent distress EENT: normal ENT inspection Neck: supple Cardiovascular: normal rate Respiratory/Chest: decreased breath sounds Abdomen: normal bowel sounds, non tender, soft Extremities: non-tender Assessment/Plan Problem List: (1) COVID-19 ICD Codes: U07.1 - COVID-19 SNOMED: 393393544 (2) Breast mass ICD Codes: N63.0 - Unspecified lump in unspecified breast SNOMED: 66497907 (3) Anemia ICD Codes: D64.9 - Anemia, unspecified SNOMED: 301732369 (4) Abdominal pain ICD Codes: R10.9 - Unspecified abdominal pain SNOMED: 95600459 (5) GI bleed ICD Codes: K92.2 - Gastrointestinal hemorrhage, unspecified SNOMED: 77163186 (6) GERD (gastroesophageal reflux disease) ICD Codes: K21.9 - Gastro-esophageal reflux disease without esophagitis SNOMED: 916745236 (7) Depression ICD Codes: F32.9 - Major depressive disorder, single episode, unspecified SNOMED: 23277252 (8) HTN (hypertension) ICD Codes: I10 - Essential (primary) hypertension SNOMED: 96334201 Assessment/Plan: PLAN: Given everything is stable, H and H, given active COVID, given elevated troponin, we are going to hold off doing endoscopy at this time. We are going to continue on Protonix q.12h., monitor H and H, transfuse as needed. Follow up on stool OB. Consider GI procedures if absolutely needed Anibal Denson MD Sep 27, 2020 11:54
[2020-09-27 12:00] VITALS: BP 129/71
[2020-09-27] MEDS: Nitroglycerin Patch 0.4mg TDERMAL SCH (13:14)
--- NOTE | 2020-09-27 13:18 | Nephrology Progress Note ---
Assessment/Plan Problem List: (1) Hyponatremia (2) Elevated troponin (3) COVID-19 (4) Pneumonia (5) Breast mass Assessment Hyponatremia etiology to be identified GI bleed Elevated troponin COVID-19 Pneumonia ? UTI ? Neoplastic process CT IMPRESSION: 1. Patchy groundglass opacities and densities in the right lower lung and at the edge of the [id number] in the left lower lobe, concerning for an infectious/process. 2. New mass in the left breast, measuring approximately 3.0 x 2.1 x 2.5 cm, concerning for neoplasm. 3. Nonspecific enlarged retroperitoneal lymph nodes. Plan September 27: Serum sodium normalized. IV Lasix and p.o. potassium chloride discontinued. Continue per current management. September 26: Serum sodium 133. Continues on IV Lasix. 3% saline 500 cc ordered. Continue to monitor electrolytes magnesium uric acid. Aim to keep output more than intake. September 25: Labs reviewed. 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 Cancer markers CA-125 elevated. Continue per oncology. Will start 3% saline infusion with IV Lasix to keep intake less than output. Monitor electrolytes. September 24: Labs reviewed. Serum sodium rising. Low potassium replaced. Cancer markers pending. Continue per consultants. Previously: Slow hydration Hyponatremia work-up Monitor electrolytes and hemoglobin and hematocrit Check cancer markers of CEA, CA 199, Ca1 25 Per orders Subjective ROS Limited/Unobtainable: No Constitutional: Reports: malaise, weakness Objective Objective Last 24 Hour Vital Signs Date Time Temp Pulse Resp B/P (MAP) Pulse Ox O2 Delivery O2 Flow Rate FiO2 09/27/20 13:14 129/71 09/27/20 09:00 Room Air 09/27/20 08:29 80 124/61 09/27/20 08:00 97.6 84 19 124/61 (82) 98 09/27/20 08:00 59 09/27/20 04:00 62 09/27/20 04:00 97.4 60 16 116/61 (79) 95 09/27/20 00:00 97.5 68 18 120/60 (80) 95 09/27/20 00:00 61 09/26/20 21:20 80 132/70 09/26/20 21:00 Room Air 09/26/20 20:00 97.7 64 20 128/66 (86) 95 09/26/20 20:00 60 1/13/21 16:00 60 09/26/20 16:00 97.1 62 18 138/68 (91) 98 09/26/20 13:28 130/72 Intake and Output 09/26/20 09/27/20 19:00 07:00 Intake Total 500 ml Balance 500 ml Intake Oral 500 ml # Voids 4 2 Current Medications Medications (Trade) Dose Ordered Sig/Rosio Route PRN Reason Start Time Stop Time Status Last Admin Dose Admin Acetaminophen (Tylenol) 650 mg Q8HR PRN ORAL Pain Scale (3-5) 09/23/20 20:00 10/23/20 19:59 Aspirin (ASA) 81 mg DAILY ORAL 09/24/20 12:15 11/08/20 12:14 09/27/20 08:28 Cefepime HCl 2 gm/ Dextrose 55 ml @ 110 mls/hr Q24H IVPB 09/25/20 01:00 10/02/20 00:59 09/27/20 01:27 Diphenhydramine HCl (Benadryl) 25 mg Q6H PRN IVP Itching 09/25/20 11:45 10/25/20 11:44 09/25/20 12:29 Docusate Sodium (Colace) 100 mg TWICE A DAY ORAL 09/26/20 09:00 10/26/20 08:59 09/27/20 08:28 Hydralazine HCl (Apresoline) 25 mg Q4H PRN ORAL BP over 160 systolic 09/23/20 15:45 12/22/20 15:44 Lorazepam (Ativan 2mg/ml 1ml) 0.5 mg Q8HR PRN IV For Anxiety 09/23/20 20:00 09/30/20 19:59 09/26/20 08:21 Metoprolol Tartrate (Lopressor) 25 mg Q12HR ORAL 09/24/20 21:00 12/23/20 20:59 09/27/20 08:29 Morphine Sulfate (Morphine Sulfate) 1 mg Q4H PRN IVP For pain (6-10) 09/23/20 20:00 09/30/20 19:59 Nitroglycerin (Ntg) 1 patch Q24H TDERMAL 09/26/20 13:00 10/26/20 12:59 09/27/20 13:14 Ondansetron HCl (Zofran) 4 mg Q4H PRN IVP Nausea & Vomiting 09/23/20 20:45 10/23/20 20:44 09/26/20 21:20 Pantoprazole (Protonix) 40 mg EVERY 12 HOURS ORAL 09/25/20 21:00 10/25/20 20:59 09/27/20 08:28 Quetiapine Fumarate (SEROqueL) 25 mg QHS ORAL 09/23/20 21:00 11/07/20 20:59 09/26/20 21:19 Vancomycin HCl (Vanco pharmacy to dose) 1 ea DAILY PRN MISC Per rx protocol 09/23/20 20:45 10/23/20 20:44 Vancomycin HCl 750 mg/Dextrose 275 ml @ 183.333 mls/hr Q12HR@0600,1800 IVPB 09/26/20 06:00 10/01/20 05:59 09/27/20 05:22 Laboratory Tests 09/27/20 04:30: White Blood Count 5.9, Red Blood Count 4.06L, Hemoglobin 12.1, Hematocrit 36.6L, Mean Corpuscular Volume 90, Mean Corpuscular Hemoglobin 29.7, Mean Corpuscular Hemoglobin Concent 33.0, Red Cell Distribution Width 13.5, Platelet Count 279, Mean Platelet Volume 7.5, Neutrophils (%) (Auto) 68.7, Lymphocytes (%) (Auto) 11.8L, Monocytes (%) (Auto) 9.7, Eosinophils (%) (Auto) 9.1H, Basophils (%) (Auto) 0.7, Sodium Level 138, Potassium Level 4.4, Chloride Level 106, Carbon Dioxide Level 25, Anion Gap 7, Blood Urea Nitrogen 14, Creatinine 1.3, Estimat Glomerular Filtration Rate 39.0, Glucose Level 89, Osmolality 290L, Uric Acid 5.4, Calcium Level 9.1, Phosphorus Level 3.2, Magnesium Level 1.8, Total Bilirubin 0.4, Aspartate Amino Transf (AST/SGOT) 19, Alanine Aminotransferase (ALT/SGPT) 18, Alkaline Phosphatase 81, Total Protein 7.3, Albumin 2.8L, Globulin 4.5, Albumin/Globulin Ratio 0.6L Height (Feet): 5 Height (Inches): 3.00 Weight (Pounds): 120 General Appearance: no apparent distress, lethargic Cardiovascular: normal rate Respiratory/Chest: decreased breath sounds Abdomen: soft Evan Tierney MD Sep 27, 2020 13:18
--- NOTE | 2020-09-27 14:00 | General Progress Note ---
Subjective Allergies: Coded Allergies: NO KNOWN ALLERGIES (Unverified Allergy, Unknown, 09/11/15) Objective Last 24 Hour Vital Signs Date Time Temp Pulse Resp B/P (MAP) Pulse Ox O2 Delivery O2 Flow Rate FiO2 09/27/20 13:14 129/71 09/27/20 12:00 96.6 89 20 129/71 (90) 98 09/27/20 12:00 57 09/27/20 09:00 Room Air 09/27/20 08:29 80 124/61 09/27/20 08:00 97.6 84 19 124/61 (82) 98 09/27/20 08:00 59 09/27/20 04:00 62 09/27/20 04:00 97.4 60 16 116/61 (79) 95 09/27/20 00:00 97.5 68 18 120/60 (80) 95 09/27/20 00:00 61 09/26/20 21:20 80 132/70 09/26/20 21:00 Room Air 09/26/20 20:00 97.7 64 20 128/66 (86) 95 09/26/20 20:00 60 09/26/20 16:00 60 09/26/20 16:00 97.1 62 18 138/68 (91) 98 Intake and Output 09/26/20 09/27/20 19:00 07:00 Intake Total 500 ml Balance 500 ml Intake Oral 500 ml # Voids 4 2 Laboratory Tests 09/27/20 04:30: White Blood Count 5.9, Red Blood Count 4.06L, Hemoglobin 12.1, Hematocrit 36.6L, Mean Corpuscular Volume 90, Mean Corpuscular Hemoglobin 29.7, Mean Corpuscular Hemoglobin Concent 33.0, Red Cell Distribution Width 13.5, Platelet Count 279, Mean Platelet Volume 7.5, Neutrophils (%) (Auto) 68.7, Lymphocytes (%) (Auto) 11.8L, Monocytes (%) (Auto) 9.7, Eosinophils (%) (Auto) 9.1H, Basophils (%) (Auto) 0.7, Sodium Level 138, Potassium Level 4.4, Chloride Level 106, Carbon D ioxide Level 25, Anion Gap 7, Blood Urea Nitrogen 14, Creatinine 1.3, Estimat Glomerular Filtration Rate 39.0, Glucose Level 89, Osmolality 290L, Uric Acid 5.4, Calcium Level 9.1, Phosphorus Level 3.2, Magnesium Level 1.8, Total Biliru bin 0.4, Aspartate Amino Transf (AST/SGOT) 19, Alanine Aminotransferase (ALT/SGPT) 18, Alkaline Phosphatase 81, Total Protein 7.3, Albumin 2.8L, Globulin 4.5, Albumin/Globulin Ratio 0.6L Height (Feet): 5 Height (Inches): 3.00 Weight (Pounds): 120 Assessment/Plan Assessment/Plan: S: I am ok O: seems comfortable, denies chest pain or sob PHYSICAL EXAMINATION: HEENT: Head and neck, atraumatic and normocephalic. CHEST: Clear to auscultation. HEART: S1 and S2. Regular rate and rhythm. ABDOMEN: Soft. No organomegaly. MUSCULOSKELETAL: No gross lateralized motor deficit. NEUROLOGY: The patient is awake, alert, oriented x3. Meds, Labs: reviewed and reconciled IMAGING: Abdominopelvic CT scan shows patchy ground-glass opacities in the right lower lung, new mass in the left breast. Chest x-ray dated September 23, 2020 shows opacity in the right lung. ASSESSMENT AND PLAN: 1. COVID-19 pneumonia. 3. Left-sided breast mass highly suspicious for malignancy. 4. Hypertension. 5. Hyponatremia. 6. Coronary artery disease. 7. Non-ST myocardial infarction. 8. GI and DVT prophylaxis. PLAN OF CARE: C/w current management ASA, in light of NSTEMI notes from Cardio and GI reviewed decreasing Trop level. Conservative mgt is justified D/w Oncologist. Proceed with Guided Bx. Eugenio Ramirez MD Sep 27, 2020 13:59
[2020-09-27 16:00] VITALS: BP 127/70
--- NOTE | 2020-09-27 16:30 | NUR ---
NURSE NOTES: Patient was scheduled for biopsy tomorrow but patient refused biopsy. Patient is alert and oriented and able to make own decisions. Spoke to next of kin and would also like to follow patients wishes. MD aware of patients wishes.
--- NOTE | 2020-09-27 16:34 | Infectious Diseases Prog Note ---
Assessment/Plan Problems: (1) COVID-19 virus infection Assessment & Plan: with positive rapid molecular tests and suggestive lung infiltrations for possible COVID 19. PCR test is negative may discontinue isolation (2) Pneumonia due to COVID-19 virus Assessment & Plan: with bilateral infiltrations mainly in the lower lobes highly suspicious for COVID 19 infection, with negative PCR , close monitor of O2 sat on room air.may remove isolation (3) Encephalopathy due to COVID-19 virus Assessment & Plan: continue supportive care and hydration as needed (4) GI bleed Assessment & Plan: with [facility] is following for possible endoscopy in the future, monitor H&H and transfuse as needed (5) Breast mass Assessment & Plan: with reactive retro-peritoneal lymph nodes highly suspicious for breast cancer, recommend ultrasound with biopsy and oncology evaluation (6) Anemia Assessment & Plan: due to the above transfuse if needed with close monitoring of H&H (7) Enterococcus UTI Assessment & Plan: already on vancomycin Subjective Constitutional: Reports: no symptoms HEENT: Reports: no symptoms Respiratory: Reports: no symptoms Breasts: Reports: no symptoms Cardiovascular: Reports: no symptoms Gastrointestinal/Abdominal: Reports: no symptoms Genitourinary: Reports: no symptoms Neurologic: Reports: no symptoms Psychiatric: Reports: no symptoms Skin: Reports: no symptoms Endocrine: Reports: no symptoms Hematologic: Reports: no symptoms Musculoskeletal: Reports: no symptoms Allergies: Coded Allergies: NO KNOWN ALLERGIES (Unverified Allergy, Unknown, 09/11/15) Objective Last 24 Hour Vital Signs Date Time Temp Pulse Resp B/P (MAP) Pulse Ox O2 Delivery O2 Flow Rate FiO2 09/27/20 13:14 129/71 09/27/20 12:00 96.6 89 20 129/71 (90) 98 09/27/20 12:00 57 09/27/20 09:00 Room Air 09/27/20 08:29 80 124/61 09/27/20 08:00 97.6 84 19 124/61 (82) 98 09/27/20 08:00 59 09/27/20 04:00 62 09/27/20 04:00 97.4 60 16 116/61 (79) 95 09/27/20 00:00 97.5 68 18 120/60 (80) 95 09/27/20 00:00 61 09/26/20 21:20 80 132/70 09/26/20 21:00 Room Air 09/26/20 20:00 97.7 64 20 128/66 (86) 95 09/26/20 20:00 60 Height (Feet): 5 Height (Inches): 3.00 Weight (Pounds): 120 General Appearance: WD/WN, no acute distress HEENT: normocephalic, atraumatic, anicteric, mucous membranes moist Respiratory/Chest: chest wall non-tender, lungs clear, normal breath sounds, no respiratory distress, no accessory muscle use Cardiovascular: normal peripheral pulses, normal rate, regular rhythm, no gallop/murmur, no JVD Abdomen: normal bowel sounds, soft, non tender, no organomegaly, non distended, no mass, no scars Extremities: no cyanosis, no clubbing Skin: no rash, no lesions Neurologic/Psychiatric: alert, responsive Lymphatic: no neck adenopathy, no groin adenopathy Musculoskeletal: normal muscle bulk, no effusion Laboratory Tests Test 09/27/20 04:30 White Blood Count 5.9 K/UL (4.8-10.8) Red Blood Count 4.06 M/UL (4.20-5.40) L Hemoglobin 12.1 G/DL (12.0-16.0) Hematocrit 36.6 % (37.0-47.0) L Mean Corpuscular Volume 90 FL (80-99) Mean Corpuscular Hemoglobin 29.7 PG (27.0-31.0) Mean Corpuscular Hemoglobin Concent 33.0 G/DL (32.0-36.0) Red Cell Distribution Width 13.5 % (11.6-14.8) Platelet Count 279 K/UL (150-450) Mean Platelet Volume 7.5 FL (6.5-10.1) Neutrophils (%) (Auto) 68.7 % (45.0-75.0) Lymphocytes (%) (Auto) 11.8 % (20.0-45.0) L Monocytes (%) (Auto) 9.7 % (1.0-10.0) Eosinophils (%) (Auto) 9.1 % (0.0-3.0) H Basophils (%) (Auto) 0.7 % (0.0-2.0) Sodium Level 138 MMOL/L (136-145) Potassium Level 4.4 MMOL/L (3.5-5.1) Chloride Level 106 MMOL/L (98-107) Carbon Dioxide Level 25 MMOL/L (21-32) Anion Gap 7 mmol/L (5-15) Blood Urea Nitrogen 14 mg/dL (7-18) Creatinine 1.3 MG/DL (0.55-1.30) Estimat Glomerular Filtration Rate 39.0 mL/min (>60) Glucose Level 89 MG/DL (74-106) Osmolality 290 mOsm/kg (297-317) L Uric Acid 5.4 MG/DL (2.6-7.2) Calcium Level 9.1 MG/DL (8.5-10.1) Phosphorus Level 3.2 MG/DL (2.5-4.9) Magnesium Level 1.8 MG/DL (1.8-2.4) Total Bilirubin 0.4 MG/DL (0.2-1.0) Aspartate Amino Transf (AST/SGOT) 19 U/L (15-37) Alanine Aminotransferase (ALT/SGPT) 18 U/L (12-78) Alkaline Phosphatase 81 U/L (46-116) Total Protein 7.3 G/DL (6.4-8.2) Albumin 2.8 G/DL (3.4-5.0) L Globulin 4.5 g/dL Albumin/Globulin Ratio 0.6 (1.0-2.7) L Current Medications Medications (Trade) Dose Ordered Sig/Rosio Route PRN Reason Start Time Stop Time Status Last Admin Dose Admin Acetaminophen (Tylenol) 650 mg Q8HR PRN ORAL Pain Scale (3-5) 09/23/20 20:00 10/23/20 19:59 Aspirin (ASA) 81 mg DAILY ORAL 09/24/20 12:15 11/08/20 12:14 09/27/20 08:28 Cefepime HCl 2 gm/ Dextrose 55 ml @ 110 mls/hr Q24H IVPB 09/25/20 01:00 10/02/20 00:59 09/27/20 01:27 Diphenhydramine HCl (Benadryl) 25 mg Q6H PRN IVP Itching 09/25/20 11:45 10/25/20 11:44 09/25/20 12:29 Docusate Sodium (Colace) 100 mg TWICE A DAY ORAL 09/26/20 09:00 10/26/20 08:59 09/27/20 08:28 Hydralazine HCl (Apresoline) 25 mg Q4H PRN ORAL BP over 160 systolic 09/23/20 15:45 12/22/20 15:44 Lorazepam (Ativan 2mg/ml 1ml) 0.5 mg Q8HR PRN IV For Anxiety 09/23/20 20:00 09/30/20 19:59 09/26/20 08:21 Metoprolol Tartrate (Lopressor) 25 mg Q12HR ORAL 09/24/20 21:00 12/23/20 20:59 09/27/20 08:29 Morphine Sulfate (Morphine Sulfate) 1 mg Q4H PRN IVP For pain (6-10) 09/23/20 20:00 09/30/20 19:59 Nitroglycerin (Ntg) 1 patch Q24H TDERMAL 09/26/20 13:00 10/26/20 12:59 09/27/20 13:14 Ondansetron HCl (Zofran) 4 mg Q4H PRN IVP Nausea & Vomiting 09/23/20 20:45 10/23/20 20:44 09/26/20 21:20 Pantoprazole (Protonix) 40 mg EVERY 12 HOURS ORAL 09/25/20 21:00 10/25/20 20:59 09/27/20 08:28 Quetiapine Fumarate (SEROqueL) 25 mg QHS ORAL 09/23/20 21:00 11/07/20 20:59 09/26/20 21:19 Vancomycin HCl (Vanco pharmacy to dose) 1 ea DAILY PRN MISC Per rx protocol 09/23/20 20:45 10/23/20 20:44 Vancomycin HCl 750 mg/Dextrose 275 ml @ 183.333 mls/hr Q12HR@0600,1800 IVPB 09/26/20 06:00 10/01/20 05:59 09/27/20 05:22 Germain Wadsworth M.D. Sep 27, 2020 16:34
--- NOTE | 2020-09-27 19:20 | NUR ---
NURSE NOTES: Received report TEOFILO Iraheta. Pt in bed awake A/Ox3, able to make needs known. Cardiac monitoring in place, showing sinus bradycardia at 58. No resp distress noted. No c/o pain. Bed low position & locked. Side rails up x3. call light within reach. Bed alarm on. Will continue to monitor.
--- NOTE | 2020-09-27 19:25 | NUR ---
NURSE HAND-OFF REPORT: Important Events on Shift:[D/C planning for tomorrow, ABX] Patient Status: [Full code] Diet: [Cardiac Diet] Pending Orders: [N/A] Pending Results/Labs:[N/A] Pending MD notification:[N/A] Latest Vital Signs: Temperature 98.7 , Pulse 63 , B/P 127 /70 , Respiratory Rate 19 , O2 SAT 94 , Room Air, O2 Flow Rate . Vital Sign Comment: [] EKG Rhythm: Sinus Rhythm Rhythm change?: N MD Notified?: - MD Response: Latest Parker Fall Score: 20 Fall Risk: Low Risk Safety Measures: Call light Within Reach, Bed Alarm Zone 1, Side Rails Side Rails x2, Bed position Low and Locked. Fall Precautions: Yellow Socks Yellow Gown Door Sign Patient Fall Education Report given to [TEOFILO Terrell].
[2020-09-27 20:00] VITALS: BP 129/56
[2020-09-28] VITALS: BP 116/52
[2020-09-28] MEDS: Cefepime HCl 2 GM in D5W 55 ML IVPB SCH (01:05)
[2020-09-28 04:00] VITALS: BP 146/67
[2020-09-28] MEDS ORDERED: Vancomycin 500mg/D5W 110ml IVPB SCH ×2 (06:00)
--- NOTE | 2020-09-28 06:46 | Hematology/Onc Progress Note ---
Assessment/Plan Assessment/Plan Assessment and Recs # Breast mass, left sided [id number] new -- requires further evaluation --> mammogram as needed outpatient as unable to do here --> given now covid19, conservative management --> dw patient and she at this time declines biopsy # Anemia due to underlying GI bleed --> anemia panel reviewed --> transfuse as needed prn --> hgb 11-->12 # Elevated troponin due to covid19 --> per Dr. Mullen, conservative mangement # Hyponatremia --> ivfs # COVID-19 -> steriods, abx, remdesivir # Pneumonia --> abx # Dvt ppx scds Appreciate consultation and dw Rn Subjective HEENT: Denies: no symptoms, eye pain, blurred vision, tearing, double vision, ear pain, ear discharge, nose pain, nose congestion, throat pain, throat swelling, mouth pain, mouth swelling, other Cardiovascular: Denies: no symptoms, chest pain, edema, irregular heart rate, lightheadedness, palpitations, syncope, other Respiratory: Denies: no symptoms, cough, shortness of breath, SOB with excertion, SOB at rest, sputum, wheezing, other Gastrointestinal/Abdominal: Denies: no symptoms, abdomen distended, abdominal pain, black stools, tarry stools, blood in stool, constipated, diarrhea, difficulty swallowing, nausea, poor appetite, poor fluid intake, rectal bleeding, vomiting, other Genitourinary: Denies: no symptoms, burning, discharge, frequency, flank pain, hematuria, incontinence, pain, urgency, other Neurologic/Psychiatric: Denies: no symptoms, anxiety, depressed, emotional problems, headache, numbness, paresthesia, pre-existing deficit, seizure, tingling, tremors, weakness, other Endocrine: Denies: no symptoms, excessive sweating, flushing, intolerance to cold, intolerance to heat, increased hunger, increased thirst, increased urine, unexplained weight gain, unexplained weight loss, other Hematologic/Lymphatic: Denies: no symptoms, anemia, easy bleeding, easy bruising, adenopathy, other Allergies: Coded Allergies: NO KNOWN ALLERGIES (Unverified Allergy, Unknown, 09/11/15) Subjective 09/26 no major events, no fc, on abx, vanc/cefepime 09/27 meds reviewed, no major changes, on abx 09/28 dc planning for today, patient again has refused biopsy Objective Objective Current Medications Medications (Trade) Dose Ordered Sig/Rosio Route PRN Reason Start Time Stop Time Status Last Admin Dose Admin Acetaminophen (Tylenol) 650 mg Q8HR PRN ORAL Pain Scale (3-5) 09/23/20 20:00 10/23/20 19:59 Aspirin (ASA) 81 mg DAILY ORAL 09/24/20 12:15 11/08/20 12:14 09/27/20 08:28 Cefepime HCl 2 gm/ Dextrose 55 ml @ 110 mls/hr Q24H IVPB 09/25/20 01:00 10/02/20 00:59 09/28/20 01:05 Diphenhydramine HCl (Benadryl) 25 mg Q6H PRN IVP Itching 09/25/20 11:45 10/25/20 11:44 09/25/20 12:29 Docusate Sodium (Colace) 100 mg TWICE A DAY ORAL 09/26/20 09:00 10/26/20 08:59 09/27/20 18:15 Hydralazine HCl (Apresoline) 25 mg Q4H PRN ORAL BP over 160 systolic 09/23/20 15:45 12/22/20 15:44 Lorazepam (Ativan 2mg/ml 1ml) 0.5 mg Q8HR PRN IV For Anxiety 09/23/20 20:00 09/30/20 19:59 09/26/20 08:21 Metoprolol Tartrate (Lopressor) 25 mg Q12HR ORAL 09/24/20 21:00 12/23/20 20:59 09/27/20 21:25 Morphine Sulfate (Morphine Sulfate) 1 mg Q4H PRN IVP For pain (6-10) 09/23/20 20:00 09/30/20 19:59 Nitroglycerin (Ntg) 1 patch Q24H TDERMAL 09/26/20 13:00 10/26/20 12:59 09/27/20 13:14 Ondansetron HCl (Zofran) 4 mg Q4H PRN IVP Nausea & Vomiting 09/23/20 20:45 10/23/20 20:44 09/26/20 21:20 Pantoprazole (Protonix) 40 mg EVERY 12 HOURS ORAL 09/25/20 21:00 10/25/20 20:59 09/27/20 21:24 Quetiapine Fumarate (SEROqueL) 25 mg QHS ORAL 09/23/20 21:00 11/07/20 20:59 09/27/20 21:24 Vancomycin HCl (Vanco pharmacy to dose) 1 ea DAILY PRN MISC Per rx protocol 09/23/20 20:45 10/23/20 20:44 Vancomycin HCl 500 mg/Dextrose 110 ml @ 110 mls/hr Q12HR@0600,1800 IVPB 09/28/20 06:00 10/03/20 05:59 09/28/20 05:31 Last 24 Hour Vital Signs Date Time Temp Pulse Resp B/P (MAP) Pulse Ox O2 Delivery O2 Flow Rate FiO2 09/28/20 04:00 58 09/28/20 04:00 97.9 67 20 146/67 (93) 93 09/28/20 00:00 99.0 60 20 116/52 (73) 95 09/28/20 00:00 62 09/27/20 21:25 60 129/59 09/27/20 21:00 Room Air 09/27/20 20:00 57 09/27/20 20:00 97.5 59 20 129/56 (80) 95 09/27/20 16:00 63 09/27/20 16:00 98.7 60 19 127/70 (89) 94 09/27/20 13:14 129/71 09/27/20 12:00 96.6 89 20 129/71 (90) 98 09/27/20 12:00 57 09/27/20 09:00 Room Air 09/27/20 08:29 80 124/61 09/27/20 08:00 97.6 84 19 124/61 (82) 98 09/27/20 08:00 59 09/27/20 04:00 62 09/27/20 04:00 97.4 60 16 116/61 (79) 95 09/27/20 00:00 97.5 68 18 120/60 (80) 95 09/27/20 00:00 61 09/26/20 21:20 80 132/70 09/26/20 21:00 Room Air 09/26/20 20:00 97.7 64 20 128/66 (86) 95 09/26/20 20:00 60 09/26/20 16:00 60 09/26/20 16:00 97.1 62 18 138/68 (91) 98 09/26/20 13:28 130/72 09/26/20 12:00 97.7 60 20 130/72 (91) 96 09/26/20 12:00 61 09/26/20 09:00 Room Air 09/26/20 08:51 61 20 140/50 96 09/26/20 08:21 61 20 140/50 96 09/26/20 08:20 61 140/50 09/26/20 08:00 62 09/26/20 08:00 97.5 61 20 140/50 (80) 96 Intake and Output 09/27/20 09/28/20 19:00 07:00 Intake Total 120 ml 350 ml Output Total 1200 ml Balance -1080 ml 350 ml Intake Oral 120 ml 350 ml Output Urine Total 1200 ml # Voids 3 2 Labs Test 09/25/20 12:30 09/26/20 10:00 09/27/20 04:30 09/27/20 17:15 Vancomycin Level Trough 7.5 ug/mL (5.0-12.0) 19.4 ug/mL (5.0-12.0) White Blood Count 5.8 K/UL (4.8-10.8) 5.9 K/UL (4.8-10.8) Red Blood Count 4.29 M/UL (4.20-5.40) 4.06 M/UL (4.20-5.40) Hemoglobin 12.4 G/DL (12.0-16.0) 12.1 G/DL (12.0-16.0) Hematocrit 37.9 % (37.0-47.0) 36.6 % (37.0-47.0) Mean Corpuscular Volume 88 FL (80-99) 90 FL (80-99) Mean Corpuscular Hemoglobin 28.9 PG (27.0-31.0) 29.7 PG (27.0-31.0) Mean Corpuscular Hemoglobin Concent 32.7 G/DL (32.0-36.0) 33.0 G/DL (32.0-36.0) Red Cell Distribution Width 13.1 % (11.6-14.8) 13.5 % (11.6-14.8) Platelet Count 273 K/UL (150-450) 279 K/UL (150-450) Mean Platelet Volume 7.2 FL (6.5-10.1) 7.5 FL (6.5-10.1) Neutrophils (%) (Auto) 62.7 % (45.0-75.0) 68.7 % (45.0-75.0) Lymphocytes (%) (Auto) 14.9 % (20.0-45.0) 11.8 % (20.0-45.0) Monocytes (%) (Auto) 11.3 % (1.0-10.0) 9.7 % (1.0-10.0) Eosinophils (%) (Auto) 10.3 % (0.0-3.0) 9.1 % (0.0-3.0) Basophils (%) (Auto) 0.7 % (0.0-2.0) 0.7 % (0.0-2.0) Sodium Level 133 MMOL/L (136-145) 138 MMOL/L (136-145) Potassium Level 3.9 MMOL/L (3.5-5.1) 4.4 MMOL/L (3.5-5.1) Chloride Level 101 MMOL/L (98-107) 106 MMOL/L (98-107) Carbon Dioxide Level 26 MMOL/L (21-32) 25 MMOL/L (21-32) Anion Gap 7 mmol/L (5-15) 7 mmol/L (5-15) Blood Urea Nitrogen 10 mg/dL (7-18) 14 mg/dL (7-18) Creatinine 1.0 MG/DL (0.55-1.30) 1.3 MG/DL (0.55-1.30) Estimat Glomerular Filtration Rate 52.8 mL/min (>60) 39.0 mL/min (>60) Glucose Level 103 MG/DL (74-106) 89 MG/DL (74-106) Calcium Level 8.8 MG/DL (8.5-10.1) 9.1 MG/DL (8.5-10.1) Osmolality 290 mOsm/kg (297-317) Uric Acid 5.4 MG/DL (2.6-7.2) Phosphorus Level 3.2 MG/DL (2.5-4.9) Magnesium Level 1.8 MG/DL (1.8-2.4) Total Bilirubin 0.4 MG/DL (0.2-1.0) Aspartate Amino Transf (AST/SGOT) 19 U/L (15-37) Alanine Aminotransferase (ALT/SGPT) 18 U/L (12-78) Alkaline Phosphatase 81 U/L (46-116) Total Protein 7.3 G/DL (6.4-8.2) Albumin 2.8 G/DL (3.4-5.0) Globulin 4.5 g/dL Albumin/Globulin Ratio 0.6 (1.0-2.7) Height (Feet): 5 Height (Inches): 3.00 Weight (Pounds): 120 Objective Physical Exam Sp02 EP: reviewed, normal General: no apparent distress, alert, GCS 15, non-toxic Head: normocephalic, atraumatic HEENT: hearing grossly normal, normal pharynx, no angioedema, normal voice Neck: full range of motion, supple/symm/no masses Respiratory: chest non-tender, rhonchi, speaking full sentences Cardiovascular: regular rate, rhythm, no edema Gi: soft, Epigastric tenderness to palpation Genitourinary: no CVA tenderness Musculoskeletal: normal range of motion 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
--- NOTE | 2020-09-28 07:12 | NUR ---
NURSE NOTES: Patient received from TEOFILO Terrell. Patient seen in bed asleep with no acute signs of distress. The patient is on room air with oxygen saturation within normal limits. The patient has a L 22G FA IV that is saline locked, clean patent and intact. the patients bed is in lowest position, locked, side rails x3, and call light within reach.
--- NOTE | 2020-09-28 07:20 | NUR ---
NURSE HAND-OFF REPORT: Important Events on Shift:[n/a] Patient Status: [full code] Diet: [] Pending Orders: [] Pending Results/Labs:[] Pending MD notification:[] Latest Vital Signs: Temperature 97.9 , Pulse 58 , B/P 146 /67 , Respiratory Rate 20 , O2 SAT 93 , Room Air, O2 Flow Rate . Vital Sign Comment: [] EKG Rhythm: Sinus Bradycardia Rhythm change?: N MD Notified?: N - MD Response: Latest Parker Fall Score: 45 Fall Risk: High Risk Safety Measures: Call light Within Reach, Bed Alarm Zone 1, Side Rails Side Rails x2, Bed position Low and Locked. Fall Precautions: Yellow Socks Yellow Gown Door Sign Patient Fall Education Report given to [TEOFILO Iraheta].
[2020-09-28 08:00] VITALS: BP 123/81
--- NOTE | 2020-09-28 08:03 | NUR ---
CASE MANAGEMENT:REVIEW 09/26/20 SI: ELLIE PNA. BREAST MASS. ELEVATED TROPONIN 97.6 58 20 132/73 97% ON RA NO LABS FOR TODAY IS: IV VANCOMYCIN Q12HRS IV CEFEPIME Q24 NITRO PATCH Q24 LOPRESSOR PO Q12 ASA PO QD IV PROTONIX Q12 IVF@75/HR SEROQUEL PO QHS : TELEMETRY STATUS DCP: FROM HOME WITH CAREGIVER PLAN: OUTPATIENT MAMMOGRAM AND BIOPSY PER HAZMAT CDL DRIVER ~ ELEVATED TROPONIN COULD POSSIBLY BE MYOPERICARDITIS D/T COVID
[2020-09-28] MEDS: Docusate 100mg cap ORAL SCH (08:29)
[2020-09-28] MEDS: Aspirin Baby 81mg ORAL SCH (08:30)
[2020-09-28 09:20] LABS: BASOPHILS % (AUTO) 1.1 % (0.0-2.0); HEMATOCRIT 33.1 % (37.0-47.0); HEMOGLOBIN 10.9 G/DL (12.0-16.0); LYMPHOCYTES % (AUTO) 16.3 % (20.0-45.0); MEAN CORPUSCULAR VOLUME 89 FL (80-99); MONOCYTES % (AUTO) 11.4 % (1.0-10.0); NEUTROPHILS % (AUTO) 58.1 % (45.0-75.0); PLATELET COUNT 203 K/UL (150-450); RED BLOOD COUNT 3.72 M/UL (4.20-5.40); WHITE BLOOD COUNT 4.7 K/UL (4.8-10.8)
--- NOTE | 2020-09-28 09:36 | Pulmonology Progress Note ---
Subjective ROS Limited/Unobtainable: No Interval Events: none major reported per nursing Constitutional: Reports: no symptoms Gastrointestinal/Abdominal: Reports: no symptoms Psychiatric: Reports: no symptoms Skin: Reports: no symptoms Musculoskeletal: Reports: no symptoms Allergies: Coded Allergies: NO KNOWN ALLERGIES (Unverified Allergy, Unknown, 09/11/15) Objective Last 24 Hour Vital Signs Date Time Temp Pulse Resp B/P (MAP) Pulse Ox O2 Delivery O2 Flow Rate FiO2 09/28/20 08:30 62 146/67 09/28/20 04:00 58 09/28/20 04:00 97.9 67 20 146/67 (93) 93 09/28/20 00:00 99.0 60 20 116/52 (73) 95 09/28/20 00:00 62 09/27/20 21:25 60 129/59 09/27/20 21:00 Room Air 09/27/20 20:00 57 09/27/20 20:00 97.5 59 20 129/56 (80) 95 09/27/20 16:00 63 09/27/20 16:00 98.7 60 19 127/70 (89) 94 09/27/20 13:14 129/71 09/27/20 12:00 96.6 89 20 129/71 (90) 98 09/27/20 12:00 57 Intake and Output 09/27/20 09/28/20 19:00 07:00 Intake Total 120 ml 350 ml Output Total 1200 ml Balance -1080 ml 350 ml Intake Oral 120 ml 350 ml Output Urine Total 1200 ml # Voids 3 2 Objective 09/28 no change 09/27 remains on RA 09/26 no change respiratory-larson 09/25 saturating at 95% on RA General Appearance: WD/WN HEENT: normocephalic Respiratory: lungs clear Cardiovascular: normal rate, regular rhythm Abdomen: soft, non tender Laboratory Tests 09/27/20 17:15: Vancomycin Level Trough 19.4H 09/28/20 08:50: White Blood Count 4.7L, Red Blood Count 3.72L, Hemoglobin 10.9L, Hematocrit 33.1L, Mean Corpuscular Volume 89, Mean Corpuscular Hemoglobin 29.2, Mean Corpuscular Hemoglobin Concent 32.9, Red Cell Distribution Width 13.0, Platelet Count 203, Mean Platelet Volume 7.1, Neutrophils (%) (Auto) 58.1, Lymphocytes ( %) (Auto) 16.3L, Monocytes (%) (Auto) 11.4H, Eosinophils (%) (Auto) 13.0H, B asophils (%) (Auto) 1.1 Current Medications Medications (Trade) Dose Ordered Sig/Rosio Route PRN Reason Start Time Stop Time Status Last Admin Dose Admin Acetaminophen (Tylenol) 650 mg Q8HR PRN ORAL Pain Scale (3-5) 09/23/20 20:00 10/23/20 19:59 Aspirin (ASA) 81 mg DAILY ORAL 09/24/20 12:15 11/08/20 12:14 09/28/20 08:30 Cefepime HCl 2 gm/ Dextrose 55 ml @ 110 mls/hr Q24H IVPB 09/25/20 01:00 10/02/20 00:59 09/28/20 01:05 Diphenhydramine HCl (Benadryl) 25 mg Q6H PRN IVP Itching 09/25/20 11:45 10/25/20 11:44 09/25/20 12:29 Docusate Sodium (Colace) 100 mg TWICE A DAY ORAL 09/26/20 09:00 10/26/20 08:59 09/28/20 08:29 Hydralazine HCl (Apresoline) 25 mg Q4H PRN ORAL BP over 160 systolic 09/23/20 15:45 12/22/20 15:44 Lorazepam (Ativan 2mg/ml 1ml) 0.5 mg Q8HR PRN IV For Anxiety 09/23/20 20:00 09/30/20 19:59 09/26/20 08:21 Metoprolol Tartrate (Lopressor) 25 mg Q12HR ORAL 09/24/20 21:00 12/23/20 20:59 09/28/20 08:30 Morphine Sulfate (Morphine Sulfate) 1 mg Q4H PRN IVP For pain (6-10) 09/23/20 20:00 09/30/20 19:59 Nitroglycerin (Ntg) 1 patch Q24H TDERMAL 09/26/20 13:00 10/26/20 12:59 09/27/20 13:14 Ondansetron HCl (Zofran) 4 mg Q4H PRN IVP Nausea & Vomiting 09/23/20 20:45 10/23/20 20:44 09/26/20 21:20 Pantoprazole (Protonix) 40 mg EVERY 12 HOURS ORAL 09/25/20 21:00 10/25/20 20:59 09/28/20 08:30 Quetiapine Fumarate (SEROqueL) 25 mg QHS ORAL 09/23/20 21:00 11/07/20 20:59 09/27/20 21:24 Vancomycin HCl ([facility] pharmacy to dose) 1 ea DAILY PRN MISC Per rx protocol 09/23/20 20:45 10/23/20 20:44 Vancomycin HCl 500 mg/Dextrose 110 ml @ 110 mls/hr Q12HR@0600,1800 IVPB 09/28/20 06:00 10/03/20 05:59 09/28/20 05:31 Assessment/Plan Assessment/Plan 1. Right lung pneumonia. - normoxemic, therefore, does not require any supplemental oxygen - on broad-spectrum Abx 2. COVID-19 positivity. 3. Normoxemia. 4. Left breast mass. - Oncology recommendations noted - given covid19, conservative management - pt agrees to outpatient mammogram and Bx 5. Anemia - heme onc and GI following 6. Elevated troponin due to covid19 - per Dr. Mullen, conservative mangement We will follow as proposal coordinator. Medically stable for discharge from pulmonary standpoint The care for this patient was discussed with my supervising physicians Time spent for this case was approximately 31 minutes Yuri Moran Sep 28, 2020 09:36
--- NOTE | 2020-09-28 10:48 | General Progress Note ---
Subjective ROS Limited/Unobtainable: No Allergies: Coded Allergies: NO KNOWN ALLERGIES (Unverified Allergy, Unknown, 09/11/15) Objective Last 24 Hour Vital Signs Date Time Temp Pulse Resp B/P (MAP) Pulse Ox O2 Delivery O2 Flow Rate FiO2 09/28/20 09:00 Room Air 09/28/20 08:30 62 146/67 09/28/20 08:00 100.0 60 20 123/81 (95) 92 09/28/20 08:00 64 09/28/20 04:00 58 09/28/20 04:00 97.9 67 20 146/67 (93) 93 09/28/20 00:00 99.0 60 20 116/52 (73) 95 09/28/20 00:00 62 09/27/20 21:25 60 129/59 09/27/20 21:00 Room Air 09/27/20 20:00 57 09/27/20 20:00 97.5 59 20 129/56 (80) 95 09/27/20 16:00 63 09/27/20 16:00 98.7 60 19 127/70 (89) 94 09/27/20 13:14 129/71 09/27/20 12:00 96.6 89 20 129/71 (90) 98 09/27/20 12:00 57 Intake and Output 09/27/20 09/28/20 19:00 07:00 Intake Total 120 ml 350 ml Output Total 1200 ml Balance -1080 ml 350 ml Intake Oral 120 ml 350 ml Output Urine Total 1200 ml # Voids 3 2 Laboratory Tests 09/27/20 17:15: Vancomycin Level Trough 19.4H 09/28/20 08:50: White Blood Count 4.7L, Red Blood Count 3.72L, Hemoglobin 10.9L, Hematocrit 33.1L, Mean Corpuscular Volume 89, Mean Corpuscular Hemoglobin 29.2, Mean Corpuscular Hemoglobin Concent 32.9, Red Cell Distribution Width 13.0, Platelet Count 203, Mean Platelet Volume 7.1, Neutrophils (%) (Auto) 58.1, Lymphocytes (%) (Auto) 16.3L, Monocytes (%) (Auto) 11.4H, Eosinophils (%) (Auto) 13.0H, Bas ophils (%) (Auto) 1.1 Height (Feet): 5 Height (Inches): 3.00 Weight (Pounds): 120 General Appearance: no apparent distress EENT: normal ENT inspection Neck: supple Cardiovascular: normal rate Respiratory/Chest: decreased breath sounds Abdomen: normal bowel sounds, non tender, soft Extremities: non-tender Assessment/Plan Problem List: (1) COVID-19 ICD Codes: U07.1 - COVID-19 SNOMED: 740294094 (2) Breast mass ICD Codes: N63.0 - Unspecified lump in unspecified breast SNOMED: 59115397 (3) Anemia ICD Codes: D64.9 - Anemia, unspecified SNOMED: 032767091 (4) Abdominal pain ICD Codes: R10.9 - Unspecified abdominal pain SNOMED: 79897557 (5) GI bleed ICD Codes: K92.2 - Gastrointestinal hemorrhage, unspecified SNOMED: 15072611 (6) GERD (gastroesophageal reflux disease) ICD Codes: K21.9 - Gastro-esophageal reflux disease without esophagitis SNOMED: 570139999 (7) Depression ICD Codes: F32.9 - Major depressive disorder, single episode, unspecified SNOMED: 77272172 (8) HTN (hypertension) ICD Codes: I10 - Essential (primary) hypertension SNOMED: 81104213 Assessment/Plan: PLAN: Given everything is stable, H and H, given active COVID, given elevated troponin, we are going to hold off doing endoscopy at this time. We are going to continue on Protonix q.12h., monitor H and H, transfuse as needed. Follow up on stool OB. Consider GI procedures if absolutely needed Anibal Denson MD Sep 28, 2020 10:47
[2020-09-28 12:00] VITALS: BP 106/50
--- NOTE | 2020-09-28 12:35 | Nephrology Progress Note ---
Assessment/Plan Problem List: (1) Hyponatremia (2) Elevated troponin (3) COVID-19 (4) Pneumonia (5) Breast mass Assessment Hyponatremia etiology to be identified GI bleed Elevated troponin COVID-19 Pneumonia ? UTI ? Neoplastic process CT IMPRESSION: 1. Patchy groundglass opacities and densities in the right lower lung and at the edge of the [id number] in the left lower lobe, concerning for an infectious/process. 2. New mass in the left breast, measuring approximately 3.0 x 2.1 x 2.5 cm, concerning for neoplasm. 3. Nonspecific enlarged retroperitoneal lymph nodes. Plan September 28: No chemistry panel drawn today. CBC noted. Continue to monitor electrolytes. Patient full code. Stable from renal standpoint of view. Today's hemoglobin 10.9. September 27: Serum sodium normalized. IV Lasix and p.o. potassium chloride di scontinued. Continue per current management. September 26: Serum sodium 133. Continues on IV Lasix. 3% saline 500 cc ordered. Continue to monitor electrolytes magnesium uric acid. Aim to keep output more than intake. September 25: Labs reviewed. 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 Cancer markers CA-125 elevated. Continue per oncology. Will start 3% saline infusion with IV Lasix to keep intake less than output. Monitor electrolytes. September 24: Labs reviewed. Serum sodium rising. Low potassium replaced. Cancer markers pending. Continue per consultants. Previously: Slow hydration Hyponatremia work-up Monitor electrolytes and hemoglobin and hematocrit Check cancer markers of CEA, CA 199, Ca1 25 Per orders Subjective ROS Limited/Unobtainable: No Constitutional: Reports: malaise, weakness Objective Objective Last 24 Hour Vital Signs Date Time Temp Pulse Resp B/P (MAP) Pulse Ox O2 Delivery O2 Flow Rate FiO2 09/28/20 12:00 99.7 62 18 106/50 (68) 96 09/28/20 09:00 Room Air 09/28/20 08:30 62 146/67 09/28/20 08:00 100.0 60 20 123/81 (95) 92 09/28/20 08:00 64 09/28/20 04:00 58 09/28/20 04:00 97.9 67 20 146/67 (93) 93 09/28/20 00:00 99.0 60 20 116/52 (73) 95 09/28/20 00:00 62 09/27/20 21:25 60 129/59 09/27/20 21:00 Room Air 09/27/20 20:00 57 09/27/20 20:00 97.5 59 20 129/56 (80) 95 09/27/20 16:00 63 09/27/20 16:00 98.7 60 19 127/70 (89) 94 09/27/20 13:14 129/71 Intake and Output 09/27/20 09/28/20 19:00 07:00 Intake Total 120 ml 350 ml Output Total 1200 ml Balance -1080 ml 350 ml Intake Oral 120 ml 350 ml Output Urine Total 1200 ml # Voids 3 2 Current Medications Medications (Trade) Dose Ordered Sig/Rosio Route PRN Reason Start Time Stop Time Status Last Admin Dose Admin Acetaminophen (Tylenol) 650 mg Q8HR PRN ORAL Pain Scale (3-5) 09/23/20 20:00 10/23/20 19:59 Aspirin (ASA) 81 mg DAILY ORAL 09/24/20 12:15 11/08/20 12:14 09/28/20 08:30 Cefepime HCl 2 gm/ Dextrose 55 ml @ 110 mls/hr Q24H IVPB 09/25/20 01:00 10/02/20 00:59 09/28/20 01:05 Diphenhydramine HCl (Benadryl) 25 mg Q6H PRN IVP Itching 09/25/20 11:45 10/25/20 11:44 09/25/20 12:29 Docusate Sodium (Colace) 100 mg TWICE A DAY ORAL 09/26/20 09:00 10/26/20 08:59 09/28/20 08:29 Hydralazine HCl (Apresoline) 25 mg Q4H PRN ORAL BP over 160 systolic 09/23/20 15:45 12/22/20 15:44 Lorazepam (Ativan 2mg/ml 1ml) 0.5 mg Q8HR PRN IV For Anxiety 09/23/20 20:00 09/30/20 19:59 09/26/20 08:21 Metoprolol Tartrate (Lopressor) 25 mg Q12HR ORAL 09/24/20 21:00 12/23/20 20:59 09/28/20 08:30 Morphine Sulfate (Morphine Sulfate) 1 mg Q4H PRN IVP For pain (6-10) 09/23/20 20:00 09/30/20 19:59 Nitroglycerin (Ntg) 1 patch Q24H TDERMAL 09/26/20 13:00 10/26/20 12:59 09/27/20 13:14 Ondansetron HCl (Zofran) 4 mg Q4H PRN IVP Nausea & Vomiting 09/23/20 20:45 10/23/20 20:44 09/26/20 21:20 Pantoprazole (Protonix) 40 mg EVERY 12 HOURS ORAL 09/25/20 21:00 10/25/20 20:59 09/28/20 08:30 Quetiapine Fumarate (SEROqueL) 25 mg QHS ORAL 09/23/20 21:00 11/07/20 20:59 09/27/20 21:24 Vancomycin HCl ([facility] pharmacy to dose) 1 ea DAILY PRN MISC Per rx protocol 09/23/20 20:45 10/23/20 20:44 Vancomycin HCl 500 mg/Dextrose 110 ml @ 110 mls/hr Q12HR@0600,1800 IVPB 09/28/20 06:00 10/03/20 05:59 09/28/20 05:31 Laboratory Tests 09/27/20 17:15: Vancomycin Level Trough 19.4H 09/28/20 08:50: White Blood Count 4.7L, Red Blood Count 3.72L, Hemoglobin 10.9L, Hematocrit 33.1L, Mean Corpuscular Volume 89, Mean Corpuscular Hemoglobin 29.2, Mean Corpuscular Hemoglobin Concent 32.9, Red Cell Distribution Width 13.0, Platelet Count 203, Mean Platelet Volume 7.1, Neutrophils (%) (Auto) 58.1, Lymphocytes (%) (Auto) 16.3L, Monocytes (%) (Auto) 11.4H, Eosinophils (%) (Auto) 13.0H, Basophils (%) (Auto) 1.1 Height (Feet): 5 Height (Inches): 3.00 Weight (Pounds): 120 General Appearance: lethargic Cardiovascular: normal rate Respiratory/Chest: decreased breath sounds Abdomen: soft Evan Tierney MD Sep 28, 2020 12:35
[2020-09-28 13:22] VITALS: BP 106/64
[2020-09-28] MEDS: Nitroglycerin Patch 0.4mg TDERMAL SCH (13:22)
[2020-09-28] MEDS ORDERED: HYDRALAZINE HCL25 M1 ORAL (13:34)
[2020-09-28] MEDS ORDERED: LOPRESSOR25 M1 ORAL (13:34)
--- NOTE | 2020-09-28 13:40 | General Progress Note ---
Subjective Allergies: Coded Allergies: NO KNOWN ALLERGIES (Unverified Allergy, Unknown, 09/11/15) Objective Last 24 Hour Vital Signs Date Time Temp Pulse Resp B/P (MAP) Pulse Ox O2 Delivery O2 Flow Rate FiO2 09/28/20 13:22 106/64 09/28/20 12:00 99.7 62 18 106/50 (68) 96 09/28/20 09:00 Room Air 09/28/20 08:30 62 146/67 09/28/20 08:00 100.0 60 20 123/81 (95) 92 09/28/20 08:00 64 09/28/20 04:00 58 09/28/20 04:00 97.9 67 20 146/67 (93) 93 09/28/20 00:00 99.0 60 20 116/52 (73) 95 09/28/20 00:00 62 09/27/20 21:25 60 129/59 09/27/20 21:00 Room Air 09/27/20 20:00 57 09/27/20 20:00 97.5 59 20 129/56 (80) 95 09/27/20 16:00 63 09/27/20 16:00 98.7 60 19 127/70 (89) 94 Intake and Output0 09/27/20 09/28/20 19:00 07:00 Intake Total 120 ml 350 ml Output Total 1200 ml Balance -1080 ml 350 ml Intake Oral 120 ml 350 ml Output Urine Total 1200 ml # Voids 3 2 Laboratory Tests 09/27/20 17:15: Vancomycin Level Trough 19.4H 09/28/20 08:50: White Blood Count 4.7L, Red Blood Count 3.72L, Hemoglobin 10.9L, Hematocrit 33.1L, Mean Corpuscular Volume 89, Mean Corpuscular Hemoglobin 29.2, Mean Corpuscular Hemoglobin Concent 32.9, Red Cell Distribution Width 13.0, Platelet Count 203, Mean Platelet Volume 7.1, Neutrophils (%) (Auto) 58.1, Lymphocytes (%) (Auto) 16.3L, Monocytes (%) (Auto) 11.4H, Eosinophils (%) (Auto) 13.0H, Basophils (%) (Auto) 1.1 Height (Feet): 5 Height (Inches): 3.00 Weight (Pounds): 120 Assessment/Plan Assessment/Plan: S: I am ok O: seems comfortable, denies chest pain or sob PHYSICAL EXAMINATION: HEENT: Head and neck, atraumatic and normocephalic. CHEST: Clear to auscultation. HEART: S1 and S2. Regular rate and rhythm. ABDOMEN: Soft. No organomegaly. MUSCULOSKELETAL: No gross lateralized motor deficit. NEUROLOGY: The patient is awake, alert, oriented x3. Meds, Labs: reviewed and reconciled IMAGING: Abdominopelvic CT scan shows patchy ground-glass opacities in the right lower lung, new mass in the left breast. Chest x-ray dated September 23, 2020 shows opacity in the right lung. ASSESSMENT AND PLAN: 1. COVID-19 pneumonia. 3. Left-sided breast mass highly suspicious for malignancy. 4. Hypertension. 5. Hyponatremia. 6. Coronary artery disease. 7. Non-ST myocardial infarction. 8. GI and DVT prophylaxis. PLAN OF CARE: C/w current management ASA, in light of NSTEMI notes from Cardio and GI reviewed decreasing Trop level. Conservative mgt is justified D/w Oncologist. Proceed with Guided Bx. Will defer Bx to outpatient , as patient wishes and refusal of procedure as inpatient Eugenio Ramirez MD Sep 28, 2020 13:40
--- NOTE | 2020-09-28 14:20 | NUR ---
NURSE NOTES: Patient discharged home in private vehicle at @1330 with Thanh Alvarez. Patient verified and acknowledged belongings list. Patient received discharge instructions and all questions were answered. Patient had no further request at the time of discharge. patient was in stable condition with no complaints of pain and no acute signs of distress. The patients VS were stable. patients IV was discontinued and was clean and intact. The patients library monitor was removed. patient was discharged to private vehicle via wheelchair.
--- NOTE | 2020-09-28 21:40 | Psychiatric Progress Note ---
Psychiatry Progress Note Psychiatry Progress Note Subjective no changes Neurological/Psychiatric: Reports: anxiety, depressed, emotional problems; Denies: no symptoms, headache, numbness, paresthesia, pre-existing deficit, seizure, tingling, tremors, weakness, other Allergies: Coded Allergies: NO KNOWN ALLERGIES (Unverified Allergy, Unknown, 09/11/15) Objective Data Height (Feet): 5 Height (Inches): 3.00 Weight (Pounds): 120 General Appearance: no apparent distress, confused, agitated Additional Comments: MENTAL STATUS EXAMINATION: The patient is alert and oriented times self, place, and situation. Mood is depressed. Affect is blunted. Thought process is concrete. Thought content, no suicidal or homicidal ideation. Cognition is impaired. Insight and judgment impaired. Assessment/Plan [place] I: ASSESSMENT: [place] I Cognitive impairment. Major depressive disorder [place] II Deferred. [place] III As above. [place] IV Low. [place] V 20. PLAN: 1. The patient was started on Seroquel 25 at bedtime due to anxiety sundowning at nighttime. 2. Ativan as needed was started by the primary physician. 3. Discussed with the primary physician. Status Narrative ASSESSMENT: [place] I Cognitive impairment. Major depressive disorder [place] II Deferred. [place] III As above. [place] IV Low. [place] V 20. PLAN: 1. The patient was started on Seroquel 25 at bedtime due to anxiety sundowning at nighttime. 2. Ativan as needed was started by the primary physician. 3. Discussed with the primary physician. Assessment/Plan: ASSESSMENT: [place] I Cognitive impairment. Major depressive disorder [place] II Deferred. [place] III As above. [place] IV Low. [place] V 20. PLAN: 1. The patient was started on Seroquel 25 at bedtime due to anxiety sundowning at nighttime. 2. Ativan as needed was started by the primary physician. 3. Discussed with the primary physician. Roverto Salomon MD Sep 28, 2020 21:40
--- NOTE | 2020-09-28 21:40 | Psychiatric Progress Note ---
Psychiatry Progress Note Psychiatry Progress Note Subjective 09/27/20 Neurological/Psychiatric: Reports: anxiety, depressed, emotional problems; Denies: no symptoms, headache, numbness, paresthesia, pre-existing deficit, seizure, tingling, tremors, weakness, other Allergies: Coded Allergies: NO KNOWN ALLERGIES (Unverified Allergy, Unknown, 09/11/15) Objective Data Height (Feet): 5 Height (Inches): 3.00 Weight (Pounds): 120 General Appearance: no apparent distress, confused, agitated Additional Comments: MENTAL STATUS EXAMINATION: The patient is alert and oriented times self, place, and situation. Mood is depressed. Affect is blunted. Thought process is concrete. Thought content, no suicidal or homicidal ideation. Cognition is impaired. Insight and judgment impaired. Assessment/Plan [place] I: ASSESSMENT: [place] I Cognitive impairment. Major depressive disorder [place] II Deferred. [place] III As above. [place] IV Low. [place] V 20. PLAN: 1. The patient was started on Seroquel 25 at bedtime due to anxiety sundowning at nighttime. 2. Ativan as needed was started by the primary physician. 3. Discussed with the primary physician. Status Narrative ASSESSMENT: [place] I Cognitive impairment. Major depressive disorder [place] II Deferred. [place] III As above. [place] IV Low. [place] V 20. PLAN: 1. The patient was started on Seroquel 25 at bedtime due to anxiety sundowning at nighttime. 2. Ativan as needed was started by the primary physician. 3. Discussed with the primary physician. Assessment/Plan: ASSESSMENT: [place] I Cognitive impairment. Major depressive disorder [place] II Deferred. [place] III As above. [place] IV Low. [place] V 20. PLAN: 1. The patient was started on Seroquel 25 at bedtime due to anxiety sundowning at nighttime. 2. Ativan as needed was started by the primary physician. 3. Discussed with the primary physician. Roverto Salomon MD Sep 28, 2020 21:40
--- NOTE | 2020-09-30 13:34 | Discharge Summary ---
Discharge Summary Discharge Summary _ Date of admission: 09/23/2020 Date of discharge: 09/28/[address] Ramirez History of Present Illness and Brief Hospital Course Ms. Nicolasa Cruz is a 85-year-old female with past medical history of hypertension who was brought to the hospital for evaluation of generalized weakness. She was found to have positive COVID-19 pneumonia. Her chest x-ray confirmed right lower lobe infiltrate and was started on vancomycin and cefepime. Given her normoxemia on room air, she did not require any supplemental oxygen. Her initial laboratory studies were notable for anemia. Patient was taken to CT abdomen/pelvis to rule out any acute intra-abdominal pathology. She was started on Protonix for her GI bleeding. CT was notable for patchy groundglass opacities and densities in the right lower lung and at the edge of the [id number] in the left lower lobe, concerning for infectious process. Also, new mass in the left breast measuring approximately 3.0 x 2.1 x 2.5 cm was demonstrated, which was concerning for neoplasm. Cancer marker CA125 was elevated. For her left breast mass, given COVID-19, conservative management was warranted. Patient agreed to outpatient mammogram and biopsy. Her serum sodium was low, most likely secondary to SIADH. She was started on 3% saline infusion with IV Lasix to keep intake less than output. Her electrolytes were closely monitored. Her urine culture grew Enterococcus faecalis. Patient was already on IV vancomycin at the time. Given her history of depression, she was evaluated by a psychiatrist. She was started on Seroquel at bedtime due to anxiety, and at nighttime. Patient was medically stable on the day of discharge. Patient was discharged home in private vehicle. Patient was in stable condition with no complaints of pain and no acute signs of distress. Patient is to follow-up with radiology for mammogram and biopsy as an outpatient. Consultants: Psychiatry Dr. Salomon Hematology oncology Dr. Mtz Cardiology Dr. Telles Pulmonology Dr. Fenton Infectious disease Dr. Wadsworth Gastroenterology Dr. Denson Nephrology Dr. Loza Discharge Condition Improved and stable Final diagnoses Left breast mass Anemia, due to underlying GI bleed Hyponatremia COVID-19 pneumonia Enterococcus UTI Hypertension Coronary artery disease Non-STEMI History of depression I have been assigned to dictate discharge summary for this account. Yuri Moran Sep 30, 2020 13:34
== END 2020-09-28 14:03 | disposition home or self-care (01) | DRG 177 ==
LOC: EMR 11:01 → 2E 12:50 → EDBEDREQ 13:32
DX: U07.1 COVID-19 (principal); I21.4 Non-ST elevation (NSTEMI) myocardial infarction; J12.82 Pneumonia due to coronavirus disease 2019; K92.2 Gastrointestinal hemorrhage, unspecified; G93.49 Other encephalopathy; N39.0 Urinary tract infection, site not specified; E22.2 Syndrome of inappropriate secretion of antidiuretic hormone; N63.20 Unspecified lump in the left breast, unspecified quadrant; I51.4 Myocarditis, unspecified; I25.10 Atherosclerotic heart disease of native coronary artery without angina pectoris; D50.0 Iron deficiency anemia secondary to blood loss (chronic); B95.2 Enterococcus as the cause of diseases classified elsewhere; I10 Essential (primary) hypertension; F32.9 Major depressive disorder, single episode, unspecified; F41.9 Anxiety disorder, unspecified; K21.9 Gastro-esophageal reflux disease without esophagitis
CPT/HCPCS: 36415; 71045; 74176; 76700; 80048; 80053; 80061; 80202; 81003; 82378; 82607; 82728; 82746; 82977; 83036; 83540; 83550; 83605; 83615; 83690; 83735; 83880; 83930; 84100; 84443; 84484; 84550; 85025; 85379; 85610; 85730; 86140; 86304; 86850; 86900; 86901; 87086; 87181; 93005; 93306; 96365; 96366; 96368; 96375; 99291; J2405; J7030; J8499; U0002